=== PATIENT | male | born 1940 | race Caucasian/White ===

== ENCOUNTER 2018-11-09 14:18 | Inpatient (IN) | payer MEDICARE, BC ==
[2018-11-09] MEDS ORDERED: Sodium Chloride 0.9% 1,000 ML IV SCH (15:00)
[2018-11-09] MEDS ORDERED: cefTRIAXone 1 GM Vial IVPUSH ONE (15:54)
--- NOTE | 2018-11-09 15:54 | EDM.PDOC ---
ED HPI GENERAL MEDICAL PROBLEM - General Chief Complaint: Respiratory Problem Stated Complaint: KIDNEYS Time Seen by Provider: 11/09/18 14:20 Source of Information: Reports: Patient History Limitations: Reports: No Limitations - History of Present Illness INITIAL COMMENTS - FREE TEXT/NARRATIVE: Patient comes into the emergency department with complaints of body aches headache and decreased urine output. He states that the patient was in the clinic 2 days ago with similar symptoms and they gave him an antibiotic- but unknown type or dosing. Family denies the clinic providing labs, x-ray, or influenza swab. He states that they were given an antibiotic and he is very frustrated with the clinic because he voiced his concern regarding the patient' s decrease in urinary output and the above symptoms and he does not feel he was taken seriously. Since Monday he has continued to decompensate his urine output is next to 0 in the course last 24 hours. His fevers have been greater than 101 at home. Family is also concerned that he has increase of shortness of breath with exertion. The body aches and headaches still progressed he feels that those may have gotten a little better since Monday. Currently the patient denies of any vision changes, chest pain, pedal edema, nausea or vomiting, or gastrointestinal concerns. He is up-to-date on his flu vaccine this year. Onset: Gradual Quality: Reports: Other Improves with: Reports: None Worsens with: Reports: None Associated Symptoms: Reports: Fever/Chills, Headaches, Loss of Appetite, Malaise , Weakness - Related Data Allergies Allergy/AdvReac Type Severity Reaction Status Date / Time No Known Allergies Allergy Verified 03/22/16 19:13 Home Meds: Home Meds Simvastatin 10 mg DAILY 03/22/16 [History] Social & Family History - Caffeine Use Caffeine Use: Reports: None ED ROS GENERAL - Review of Systems Review Of Systems: See Below Constitutional: Reports: Fever, Chills, Malaise, Weakness HEENT: Reports: No Symptoms Respiratory: Reports: Shortness of Breath, Cough Cardiovascular: Reports: Dyspnea on Exertion Endocrine: Reports: No Symptoms GI/Abdominal: Reports: No Symptoms : Reports: No Symptoms Musculoskeletal: Reports: No Symptoms Skin: Reports: No Symptoms Neurological: Reports: No Symptoms Psychiatric: Reports: No Symptoms Hematologic/Lymphatic: Reports: No Symptoms ED EXAM, GENERAL - Physical Exam Exam: See Below Exam Limited By: No Limitations General Appearance: Alert, WD/WN, No Apparent Distress Head: Atraumatic, Normocephalic Neck: Normal Inspection, Supple, Non-Tender, Full Range of Motion Respiratory/Chest: Decreased Breath Sounds (left), Crackles (right side) Cardiovascular: Normal Peripheral Pulses, No Edema GI/Abdominal: Normal Bowel Sounds, Soft, Non-Tender, No Distention Back Exam: Normal Inspection Extremities: Normal Inspection, Normal Range of Motion Neurological: Alert, Oriented Psychiatric: Normal Affect, Normal Mood Skin Exam: Warm, Dry, Intact Course - Orders/Labs/Meds Orders: Active Orders 24 hr Category Date Time Status EKG Documentation Completion [RC] STAT Care 11/09/18 14:52 Active CULTURE BLOOD [BC] Stat Lab 11/09/18 15:55 Received CULTURE BLOOD [BC] Stat Lab 11/09/18 16:02 Received UA RFX RIGOBERTO AND CULT IF INDIC [URIN] Stat Lab 11/09/18 16:24 Ordered Sodium Chloride 0.9% [Normal Saline] 1,000 ml Med 11/09/18 15:00 Active IV ASDIRECTED Sodium Chloride 0.9% [Saline Flush] Med 11/09/18 14:52 Active 10 ml FLUSH ASDIRECTED PRN Blood Culture x2 Reflex Set [OM.PC] Stat Oth 11/09/18 14:52 Ordered Peripheral IV Insertion Adult [OM.PC] Stat Oth 11/09/18 14:51 Ordered Medication Orders Sodium Chloride (Normal Saline) 1,000 mls @ 200 mls/hr IV ASDIRECTED MELODIE Last Admin: 11/09/18 15:10 Dose: 200 mls/hr Sodium Chloride (Saline Flush) 10 ml FLUSH ASDIRECTED PRN PRN Reason: Keep Vein Open Labs: Laboratory Tests 11/09/18 11/09/18 11/09/18 Range/Units 15:55 15:55 15:55 WBC 10.0 (4.0-10.0) x10^3/uL RBC 3.84 L (4.5-6.0) x10^6/uL Hgb 11.3 L D (14.0-18.0) g/dL Hct 33.5 L (40.0-52.0) % MCV 87.2 (78.0-93.0) fL MCH 29.4 (26.0-32.0) pg MCHC 33.7 (32.0-36.0) g/dL RDW Coeff of Barbara 14.7 (10.0-15.0) % Plt Count 197 (130-400) x10^3/uL Neut % (Auto) 90.9 H (50.0-80.0) % Lymph % (Auto) 3.0 L (25.0-50.0) % Kleberg % (Auto) 5.8 (2.0-11.0) % Eos % (Auto) 0.2 (0.0-4.0) % Baso % (Auto) 0.1 L (0.2-1.2) % PT 14.3 H (10.0-12.8) SEC INR 1.3 L (2.0-3.5) Sodium 133 L (136-145) mmol/L Potassium 3.8 (3.5-5.1) mmol/L Chloride 97 L (98-107) mmol/L Carbon Dioxide 25 (21-32) mmol/L Anion Gap 14.8 (10-20) mmol/L BUN 21 H (7-18) mg/dL Creatinine 1.4 H (0.70-1.30) mg/dL Est Cr Clr Drug Dosing TNP Estimated GFR (MDRD) 49 Glucose 122 H (74-106) mg/dL Lactic Acid (0.4-2.0) mmol/L Calcium 8.2 L (8.5-10.1) mg/dL Corrected Calcium 9.24 (8.5-10.1) mg/dL Total Bilirubin 2.0 H (0.2-1.0) mg/dL AST 56 H (15-37) U/L ALT 99 H (16-63) U/L Alkaline Phosphatase 127 H (46-116) U/L Troponin I 0.060 H* (<=0.056) ng/mL NT-Pro-B Natriuret Pep 51641 H (<=450) pg/mL Total Protein 6.8 (6.4-8.2) g/dL Albumin 2.7 L (3.4-5.0) g/dL Globulin 4.1 Albumin/Globulin Ratio 0.66 05/03/19 Range/Units 15:55 WBC (4.0-10.0) x10^3/uL RBC (4.5-6.0) x10^6/uL Hgb (14.0-18.0) g/dL Hct (40.0-52.0) % MCV (78.0-93.0) fL MCH (26.0-32.0) pg MCHC (32.0-36.0) g/dL RDW Coeff of Barbara (10.0-15.0) % Plt Count (130-400) x10^3/uL Neut % (Auto) (50.0-80.0) % Lymph % (Auto) (25.0-50.0) % Kleberg % (Auto) (2.0-11.0) % Eos % (Auto) (0.0-4.0) % Baso % (Auto) (0.2-1.2) % PT (10.0-12.8) SEC INR (2.0-3.5) Sodium (136-145) mmol/L Potassium (3.5-5.1) mmol/L Chloride (98-107) mmol/L Carbon Dioxide (21-32) mmol/L Anion Gap (10-20) mmol/L BUN (7-18) mg/dL Creatinine (0.70-1.30) mg/dL Est Cr Clr Drug Dosing Estimated GFR (MDRD) Glucose (74-106) mg/dL Lactic Acid 1.5 (0.4-2.0) mmol/L Calcium (8.5-10.1) mg/dL Corrected Calcium (8.5-10.1) mg/dL Total Bilirubin (0.2-1.0) mg/dL AST (15-37) U/L ALT (16-63) U/L Alkaline Phosphatase (46-116) U/L Troponin I (<=0.056) ng/mL NT-Pro-B Natriuret Pep (<=450) pg/mL Total Protein (6.4-8.2) g/dL Albumin (3.4-5.0) g/dL Globulin Albumin/Globulin Ratio Meds: Medications Generic Name Dose Route Start Last Admin Trade Name Freq PRN Reason Stop Dose Admin Sodium Chloride 1,000 mls @ 200 mls/hr 11/09/18 15:00 11/09/18 15:10 Normal Saline IV 200 mls/hr ASDIRECTED MELODIE Administration Sodium Chloride 10 ml 11/09/18 14:52 Saline Flush FLUSH ASDIRECTED PRN Keep Vein Open Discontinued Medications Generic Name Dose Route Start Last Admin Trade Name Chad PRN Reason Stop Dose Admin Ceftriaxone Sodium 1 gm 11/09/18 15:54 11/09/18 16:05 Rocephin IVPUSH 11/09/18 15:55 1 gm ONETIME ONE Administration Departure - Departure Time of Disposition: 17:00 Disposition: Admitted As Inpatient 64 Condition: Fair Clinical Impression: Dehydration Pneumonia Qualifiers: Pneumonia type: due to unspecified organism Laterality: left Lung location: lower lobe of lung Qualified Code(s): J18.1 - Lobar pneumonia, unspecified organism CHF (congestive heart failure) Qualifiers: Heart failure type: combined systolic and diastolic Heart failure chronicity: acute on chronic Qualified Code(s): I50.43 - Acute on chronic combined systolic (congestive) and diastolic (congestive) heart failure - Discharge Information *PRESCRIPTION DRUG MONITORING PROGRAM REVIEWED*: Not Applicable *COPY OF PRESCRIPTION DRUG MONITORING REPORT IN PATIENT JANA: Not Applicable Referrals: Ana Bear MD [Primary Care Provider] - - Problem List Review Problem List Initiated/Reviewed/Updated: Yes - My Orders Last 24 Hours: My Active Orders 11/09/18 14:51 Peripheral IV Insertion Adult [OM.PC] Stat 11/09/18 14:52 EKG Documentation Completion [RC] STAT Sodium Chloride 0.9% [Saline Flush] 10 ml FLUSH ASDIRECTED PRN Blood Culture x2 Reflex Set [OM.PC] Stat 11/09/18 15:00 Sodium Chloride 0.9% [Normal Saline] 1,000 ml IV ASDIRECTED 11/09/18 15:55 CULTURE BLOOD [BC] Stat 11/09/18 16:02 CULTURE BLOOD [BC] Stat 11/09/18 16:24 UA RFX RIGOBERTO AND CULT IF INDIC [URIN] Stat - Assessment/Plan Last 24 Hours: My Active Orders 11/09/18 14:51 Peripheral IV Insertion Adult [OM.PC] Stat 11/09/18 14:52 EKG Documentation Completion [RC] STAT Sodium Chloride 0.9% [Saline Flush] 10 ml FLUSH ASDIRECTED PRN Blood Culture x2 Reflex Set [OM.PC] Stat 11/09/18 15:00 Sodium Chloride 0.9% [Normal Saline] 1,000 ml IV ASDIRECTED 11/09/18 15:55 CULTURE BLOOD [BC] Stat 11/09/18 16:02 CULTURE BLOOD [BC] Stat 11/09/18 16:24 UA RFX RIGOBERTO AND CULT IF INDIC [URIN] Stat Assessment:: 1. decrease urine output 2. Body aches and chills 3. Fever- on oral antibiotics in the clinic since Monday 4. Pneumonia 5. CHF exacerbation Plan: 1. Labs completed in the ER. Results reviewed with the patient and family 2. IV access initiated 3. CT scan of abdomen. Results reviewed with the patient and family 4. Xray of chest completed. Results reviewed with the patient and family 5. Rocephin given in ER. Pt was on oral antibiotics since Monday. 6. Fluids given in the ER due to decrease urine output and poor oral intake the past few days 7. EKG completed in ER. Results reviewed with the patient and family 8. Dr. Borjas contacted regarding admission. She is agreeable to the admission and will admit to acute care. 9. All questions and concerns were addressed prior to discharge
--- NOTE | 2018-11-09 16:07 | CT ---
[id number] CT/CT Abdomen Pelvis WO IV EXAM: CT Abdomen Pelvis WO IV CLINICAL DATA: FLANK PAIN,DECREASE URINE OUTPUT. COMPARISON STUDY: None. FINDINGS: Trace right and small left pleural effusions. Airspace consolidation at the left lung base. Subtle groundglass and tree-in-bud nodularity at the right lung base. The heart is enlarged. Multiple hypodense lesions scattered throughout the liver are nonspecific but likely represent cysts. The spleen is borderline enlarged measuring up to 13 cm. Cholelithiasis without evidence of acute cholecystitis. The pancreas and adrenal glands are unremarkable. Mild left hydronephrosis. No hydroureter. No stones are identified. The right kidney is unremarkable. No bowel obstruction or inflammation. The appendix is visualized and appears normal. Atherosclerotic calcifications of the aorta and its branches. No lymphadenopathy, or pneumoperitoneum. Small amount free fluid within the pelvis. Evaluation of the pelvis is limited secondary to streak artifact from right hip arthroplasty. Small left inguinal hernia containing fat and unobstructed colon. Scattered changes of spondylosis the spine. No fracture or osseous lesion. IMPRESSION: 1. Airspace consolidation within the left lower lobe consistent with pneumonia. Follow-up imaging after appropriate therapy is recommended 2. Trace right and small left pleural effusions. 3. Small amount of free fluid within the pelvis. 4. Mild left hydronephrosis. There are no obstructing stones identified. No hydroureter. Kwabena Rodas DO 11/09/18 1764 Thank you for allowing us to participate in the care of your patient.
[2018-11-09 16:44] LABS: CHLORIDE,CL 97 mmol/L (98-107); SODIUM,NA 133 mmol/L (136-145)
[2018-11-09 16:45] LABS: ANION GAP 14.8 mmol/L (10-20)
--- NOTE | 2018-11-09 16:48 | CR ---
[id number] RAD/RAD Chest PA or AP 1V EXAM: RAD Chest PA or AP 1V INDICATION: SHORT OF BREATH. COMPARISON: CT abdomen pelvis 11/09/2018. DISCUSSION: Cardiomediastinal silhouette is increased in size. Left lower lobe airspace consolidation. No pneumothorax. IMPRESSION: Left lower lobe pneumonia. Follow-up imaging after appropriate therapy in 4-6 weeks is recommended. Kwabena Rodas DO 11/09/18 1647 Thank you for allowing us to participate in the care of your patient.
--- NOTE | 2018-11-09 19:14 | PCM.HP ---
H&P History of Present Illness - General Date of Service: 11/09/18 Admit Problem/Dx: Admission Diagnosis/Problem Admission Diagnosis/Problem CHF, Congestive heart failure Source of Information: Patient, Family () History Limitations: Reports: No Limitations - History of Present Illness Initial Comments - Free Text/Narative: Mr. Leyva is an 78 yo male with PMH of pulmonary hypertension, mitral regurgitation, diastolic heart failure, FELIPE on CPAP, hyperlipidemia, obesity, CKD, and DJD who presented to the ER for evaluation of a progressively worsening cough x 5 days. Cough has been nonproductive. He has had nasal congestion, rhinorrhea, myalgias, fever, chills, and generalized weakness. His appetite has not been great but he has been trying to push fluids. He has not been voiding as often as usual despite his good fluid intake. He has not had any falls and his denies that he has been confused during this week. He was seen in clinic 2 days ago and was prescribed augmentin. His symptoms have continued to worsen since then. He denies any history of pneumonia. He has not had any specific sick contacts. Lower Back Pain Score (Numeric/FACES): 2 - Related Data Allergies/Adverse Reactions: Allergies Allergy/AdvReac Type Severity Reaction Status Date / Time No Known Allergies Allergy Verified 11/09/18 18:33 Home Medications: Home Meds Simvastatin 10 mg PO DAILY 03/22/16 [History] Amoxicillin/Clavulanate K [Augmentin 875-125 MG] 1 tab PO BID 11/09/18 [History] Aspirin [Halfprin] 81 mg PO ASDIRECTED 11/09/18 [History] Calcium Citrate/Vitamin D3 [Calcium Citrate - Vit D Tablet] 1 each PO DAILY 09/25 [History] Furosemide [Lasix] 40 mg PO DAILY 11/09/18 [History] Ibuprofen 200 mg PO Q6HR PRN 11/09/18 [History] Metoprolol Succinate 25 mg PO DAILY 11/09/18 [History] Multivitamin [Multi-Day Vitamins] 1 tab PO DAILY 11/09/18 [History] Potassium Chloride 20 meq PO DAILY 11/09/18 [History] Past Medical History HEENT History: Reports: Hard of Hearing Cardiovascular History: Reports: Heart Failure, High Cholesterol, Pulmonary Hypertension, Other (See Below) Other Cardiovascular History: Cardiomegaly. Mitral valve regurgitation. Abnormal EKG. Hx of chest pain. Bradycardia Respiratory History: Reports: Sleep Apnea, SOB, Other (See Below) Other Respiratory History: Right lung lesion Gastrointestinal History: Reports: Cholelithiasis, Colon Polyp, Other (See Below ) Other Gastrointestinal History: Biliary sludge. Peptic Ulcer Genitourinary History: Reports: Acute Renal Failure, Other (See Below) Other Genitourinary History: CKD Musculoskeletal History: Reports: Osteoarthritis, Other (See Below) Other Musculoskeletal History: Carpal tunnel Neurological History: Reports: Headaches, Chronic, Vertigo Psychiatric History: Reports: None Endocrine/Metabolic History: Reports: Obesity/BMI 30+, Other (See Below) Other Endocrine/Metabolic History: Hyperglycemia Hematologic History: Reports: None Immunologic History: Reports: None Oncologic (Cancer) History: Reports: None Dermatologic History: Reports: Other (See Below) Other Dermatologic History: Pigmented skin lesion. Lipoma - Infectious Disease History Infectious Disease History: Reports: Meningitis - Past Surgical History HEENT Surgical History: Reports: None Cardiovascular Surgical History: Reports: None Respiratory Surgical History: Reports: None GI Surgical History: Reports: Colonoscopy Male Surgical History: Reports: None Endocrine Surgical History: Reports: None Neurological Surgical History: Reports: None Musculoskeletal Surgical History: Reports: Carpal Tunnel, Hip Replacement, Knee Replacement Oncologic Surgical History: Reports: None Dermatological Surgical History: Reports: None Social & Family History - Family History Cardiac: Reports: Heart Failure Neurological: Reports: CVA Endocrine/Metabolic: Reports: Diabetes, type II Oncologic: Reports: Colon - Tobacco Use Smoking Status *Q: Never Smoker Used Tobacco, but Quit: No Second Hand Smoke Exposure: No - Caffeine Use Caffeine Use: Reports: Coffee - Alcohol Use Alcohol Use History: No Alcohol Use in Last Twelve Months: Yes Alcohol Use Frequency: Rarely - Recreational Drug Use Recreational Drug Use: No - Living Situation & Occupation Living situation: Reports: , with Significant Other Occupation: Retired H&P Review of Systems - Review of Systems: Review Of Systems: See Below General: Reports: Fever, Chills, Weakness, Fatigue, Decreased Appetite HEENT: Reports: Rhinitis, Sinus Congestion. Denies: Sore Throat Pulmonary: Reports: Shortness of Breath, Cough Cardiovascular: Reports: No Symptoms Gastrointestinal: Reports: Anorexia, Nausea. Denies: Abdominal Pain, Constipation, Diarrhea, Vomiting Genitourinary: Reports: No Symptoms Musculoskeletal: Reports: No Symptoms Skin: Reports: No Symptoms Psychiatric: Reports: No Symptoms Neurological: Reports: No Symptoms Exam - Exam Exam: See Below - Vital Signs Vital Signs: Last Vital Signs Temp 38.6 C H 11/09/18 18:00 Pulse 82 11/09/18 18:00 Resp 32 H 11/09/18 18:00 BP 125/78 11/09/18 18:00 Pulse Ox 93 L 11/09/18 18:56 Weight: 102.512 kg - Exam General: Alert, Oriented, Cooperative HEENT: Conjunctiva Clear, Mucosa Moist & [place], Posterior Pharynx Clear, Pupils Equal, Pupils Reactive, TMs Clear Neck: Supple, Trachea Midline. No: Lymphadenopathy, Thyromegaly Lungs: Normal Respiratory Effort, Crackles (left lower lung) Cardiovascular: Regular Rate, Regular Rhythm, Normal S1, Normal S2 GI/Abdominal Exam: Normal Bowel Sounds, Soft, Non-Tender, No Organomegaly, No Distention, No Mass Extremities: Pedal Edema (1+ bilaterally to the knees) Peripheral Pulses: 2+: Radial (L), Radial (R) Skin: Warm, Dry, Intact Neurological: Strength Equal Bilateral Neuro Extensive - Mental Status: Alert, Oriented x3 - Patient Data Lab Results Last 24 hrs: Laboratory Results - last 24 hr 11/09/18 11/09/18 11/09/18 Range/Units 15:55 15:55 15:55 WBC 10.0 (4.0-10.0) x10^3/uL RBC 3.84 L (4.5-6.0) x10^6/uL Hgb 11.3 L D (14.0-18.0) g/dL Hct 33.5 L (40.0-52.0) % MCV 87.2 (78.0-93.0) fL MCH 29.4 (26.0-32.0) pg MCHC 33.7 (32.0-36.0) g/dL RDW Coeff of Barbara 14.7 (10.0-15.0) % Plt Count 197 (130-400) x10^3/uL Neut % (Auto) 90.9 H (50.0-80.0) % Lymph % (Auto) 3.0 L (25.0-50.0) % [place] % (Auto) 5.8 (2.0-11.0) % Eos % (Auto) 0.2 (0.0-4.0) % Baso % (Auto) 0.1 L (0.2-1.2) % PT 14.3 H (10.0-12.8) SEC INR 1.3 L (2.0-3.5) Sodium 133 L (136-145) mmol/L Potassium 3.8 (3.5-5.1) mmol/L Chloride 97 L (98-107) mmol/L Carbon Dioxide 25 (21-32) mmol/L Anion Gap 14.8 (10-20) mmol/L BUN 21 H (7-18) mg/dL Creatinine 1.4 H (0.70-1.30) mg/dL Est Cr Clr Drug Dosing TNP Estimated GFR (MDRD) 49 Glucose 122 H (74-106) mg/dL Lactic Acid (0.4-2.0) mmol/L Calcium 8.2 L (8.5-10.1) mg/dL Corrected Calcium 9.24 (8.5-10.1) mg/dL Total Bilirubin 2.0 H (0.2-1.0) mg/dL AST 56 H (15-37) U/L ALT 99 H (16-63) U/L Alkaline Phosphatase 127 H (46-116) U/L Troponin I 0.060 H* (<=0.056) ng/mL NT-Pro-B Natriuret Pep 13365 H (<=450) pg/mL Total Protein 6.8 (6.4-8.2) g/dL Albumin 2.7 L (3.4-5.0) g/dL Globulin 4.1 Albumin/Globulin Ratio 0.66 /09/25 Range/Units 15:55 WBC (4.0-10.0) x10^3/uL RBC (4.5-6.0) x10^6/uL Hgb (14.0-18.0) g/dL Hct (40.0-52.0) % MCV (78.0-93.0) fL MCH (26.0-32.0) pg MCHC (32.0-36.0) g/dL RDW Coeff of [place] (10.0-15.0) % Plt Count (130-400) x10^3/uL Neut % (Auto) (50.0-80.0) % Lymph % (Auto) (25.0-50.0) % [place] % (Auto) (2.0-11.0) % Eos % (Auto) (0.0-4.0) % Baso % (Auto) (0.2-1.2) % PT (10.0-12.8) SEC INR (2.0-3.5) Sodium (136-145) mmol/L Potassium (3.5-5.1) mmol/L Chloride (98-107) mmol/L Carbon Dioxide (21-32) mmol/L Anion Gap (10-20) mmol/L BUN (7-18) mg/dL Creatinine (0.70-1.30) mg/dL Est Cr Clr Drug Dosing Estimated GFR (MDRD) Glucose (74-106) mg/dL Lactic Acid 1.5 (0.4-2.0) mmol/L Calcium (8.5-10.1) mg/dL Corrected Calcium (8.5-10.1) mg/dL Total Bilirubin (0.2-1.0) mg/dL AST (15-37) U/L ALT (16-63) U/L Alkaline Phosphatase (46-116) U/L Troponin I (<=0.056) ng/mL NT-Pro-B Natriuret Pep (<=450) pg/mL Total Protein (6.4-8.2) g/dL Albumin (3.4-5.0) g/dL Globulin Albumin/Globulin Ratio Result Diagrams: 11/09/18 15:55 11/09/18 15:55 Mina Results Last 24 hrs: Microbiology 11/09/18 15:18 Influenza Type A Antigen Screen - Final Nasal Aspirate, Unspecified NEGATIVE INFLUENZA A VIRUS AG REFERENCE RANGE: NEGATIVE Influenza Type B Antigen Screen - Final NEGATIVE INFLUENZA B VIRUS AG REFERENCE RANGE: NEGATIVE - Problem List (1) Sepsis SNOMED Code(s): 65470252 ICD Code: A41.9 - SEPSIS, UNSPECIFIED ORGANISM Status: Acute Current Visit: Yes Qualifiers: Sepsis type: sepsis due to unspecified organism Qualified Code(s): A41.9 - Sepsis, unspecified organism (2) Community acquired pneumonia SNOMED Code(s): 878425449 ICD Code: J18.9 - PNEUMONIA, UNSPECIFIED ORGANISM Status: Acute Current Visit: Yes Qualifiers: Laterality: left Lung location: lower lobe of lung Qualified Code(s): J18.1 - Lobar pneumonia, unspecified organism (3) CHF (congestive heart failure) SNOMED Code(s): 70311113 ICD Code: I50.9 - HEART FAILURE, UNSPECIFIED Status: Acute Current Visit : Yes Qualifiers: Heart failure type: combined systolic and diastolic Heart failure chronicity: acute on chronic Qualified Code(s): I50.43 - Acute on chronic combined systolic (congestive) and diastolic (congestive) heart failure (4) CKD (chronic kidney disease) SNOMED Code(s): 844001967 ICD Code: N18.9 - CHRONIC KIDNEY DISEASE, UNSPECIFIED Status: Chronic Current Visit: Yes Qualifiers: Chronic kidney disease stage: stage 3 (moderate) Qualified Code(s): N18.3 - Chronic kidney disease, stage 3 (moderate) (5) Pulmonary hypertension SNOMED Code(s): 05767981 ICD Code: I27.20 - PULMONARY HYPERTENSION, UNSPECIFIED Status: Chronic Current Visit: Yes (6) Mitral regurgitation SNOMED Code(s): 01358017 ICD Code: I34.0 - NONRHEUMATIC MITRAL (VALVE) INSUFFICIENCY Status: Chronic Current Visit: Yes Qualifiers: Cardiac valve disease etiology: nonrheumatic Qualified Code(s): I34.0 - Nonrheumatic mitral (valve) insufficiency (7) Hyperlipemia SNOMED Code(s): 25485739 ICD Code: E78.5 - HYPERLIPIDEMIA, UNSPECIFIED Status: Chronic Current Visit: Yes Qualifiers: Hyperlipidemia type: mixed hyperlipidemia Qualified Code(s): E78.2 - Mixed hyperlipidemia (8) Obesity SNOMED Code(s): 920239427, 401991858 ICD Code: E66.9 - OBESITY, UNSPECIFIED Status: Chronic Current Visit: Yes Qualifiers: Obesity type: due to excess calories (9) Arthritis SNOMED Code(s): 3578770 ICD Code: M19.90 - UNSPECIFIED OSTEOARTHRITIS, UNSPECIFIED SITE Status: Chronic Current Visit: Yes (10) FELIPE (obstructive sleep apnea) SNOMED Code(s): 34473323 ICD Code: G47.33 - OBSTRUCTIVE SLEEP APNEA (ADULT) (PEDIATRIC) Status: Chronic Current Visit: Yes Problem List Initiated/Reviewed/Updated: Yes Orders Last 24hrs: Active Orders 24 hr Category Date Time Status Admission Status [Patient Status] [ADT] Routine ADT 11/09/18 17:12 Active Notify Provider Vital Signs [RC] ASDIRECTED Care 11/09/18 18:56 Ordered Oxygen Therapy [RC] PRN Care 11/09/18 18:56 Ordered Up With Assistance [RC] ASDIRECTED Care 11/09/18 18:56 Ordered Vital Signs [RC] Q4H Care 11/09/18 18:56 Ordered Regular Diet [DIET] Diet 11/09/18 Dinner Ordered BASIC METABOLIC PANEL,BMP [CHEM] Routine Lab 11/10/18 05:11 Ordered CBC WITH AUTO DIFF [HEME] Routine Lab 11/10/18 05:11 Ordered CULTURE BLOOD [BC] Stat Lab 11/09/18 15:55 Received CULTURE BLOOD [BC] Stat Lab 11/09/18 16:02 Received UA RFX MINA AND CULT IF INDIC [URIN] Stat Lab 11/09/18 16:24 Ordered Aspirin [Halfprin] Med 11/10/18 20:00 Ordered 81 mg PO Q48H Enoxaparin [Lovenox] Med 11/10/18 08:00 Ordered 40 mg SUBCUT DAILY Metoprolol Succinate [Toprol XL] Med 11/09/18 20:00 Ordered 25 mg PO BEDTIME Potassium Chloride [Potassium Chloride] Med 11/10/18 08:00 Ordered 20 meq PO DAILY Simvastatin [Zocor] Med 11/09/18 20:00 Ordered 10 mg PO BEDTIME Sodium Chloride 0.9% [Saline Flush] Med 11/09/18 14:52 Active 10 ml FLUSH ASDIRECTED PRN Blood Culture x2 Reflex Set [OM.PC] Stat Oth 11/09/18 14:52 Ordered Peripheral IV Insertion Adult [OM.PC] Stat Oth 11/09/18 14:51 Ordered Resuscitation Status Routine Resus Stat 11/09/18 18:56 Ordered Medication Orders Aspirin (Halfprin) 81 mg PO Q48H MELODIE Enoxaparin Sodium (Lovenox) 40 mg SUBCUT DAILY MELODIE Metoprolol Succinate (Toprol Xl) 25 mg PO BEDTIME MELODIE Non-Formulary Medication (Potassium Chloride [Potassium Chloride]) 20 meq PO DAILY MELODIE Simvastatin (Zocor) 10 mg PO BEDTIME MELODIE Sodium Chloride (Saline Flush) 10 ml FLUSH ASDIRECTED PRN PRN Reason: Keep Vein Open Assessment/Plan Comment:: 78 yo male admitted with sepsis secondary to community acquired pneumonia. #1 Sepsis, secondary to #2 - Meets criteria with tachypnea and fever. - He has had some GI symptoms as well but CT abdomen/pelvis negative. No other signs/symptoms of alternative infectious source. - Lactic normal. No other evidence of end organ damage. - He got IV fluids in the ER. Given absence of tachycardia and significant BP elevation, will hold off on further IV fluids for now. Will bolus PRN. #2 Community Acquired Pneumonia - Left lower lobe pneumonia seen on x-ray and CT. He also has crackles in the LLL. - CURB-65 score is 2. Given this as well as his meeting of sepsis criteria, inpatient admission is recommended. - Per current guidelines, will treat with ceftriaxone and azithromycin. He already got initial dosing on the ceftriaxone in the ER; will start the azithromycin tomorrow. - Wean oxygen as able. - Follow-up CXR recommended in 4-6 weeks. #3 Acute on chronic diastolic CHF - BNP significantly elevated but no evidence on exam or x-ray of significant fluid overload. - Will hold off on additional lasix at this time. - Will see how he handles the fluid load given in the ER and assess for PO vs IV in the morning. - Continue home medications. #4 CKD - Creatinine is at his baseline. - Will monitor daily and avoid any renal injuries. #5 Pulmonary Hypertension #6 Mitral Regurgitation #7 Hyperlipidemia #8 Obesity #9 Arthritis - All stable. - Continue home medications. #10 FELIPE - His will bring his CPAP machine from home. As above, patient is admitted to acute status based on meeting sepsis criteria as well as a CURB-65 score of 2 - anticipate admission for 48-72 hours. Continue home medications apart from vitamins and ibuprofen. Lovenox for VTE prophylaxis. Patient is full code - discussed with him on admission.
[2018-11-09] MEDS: Simvastatin 10 MG Tab PO SCH (20:30)
[2018-11-09] MEDS: Metoprolol Succinate 25 MG Tab.ER PO SCH (20:30)
[2018-11-10] MEDS: Enoxaparin 40 MG/0.4 ML Syringe SUBCUT SCH (07:13)
[2018-11-10] MEDS: Potassium Chloride 20 MEQ Tab.ER PO SCH (07:13)
[2018-11-10] MEDS: Sodium Chloride 0.9% 10 ML Syringe FLUSH PRN ×3 (07:15→13:58)
[2018-11-10 08:46] LABS: ANION GAP 13.8 mmol/L (10-20)
[2018-11-10] MEDS ORDERED: Azithromycin 250 MG Tab PO ONE (09:18)
[2018-11-10] MEDS ORDERED: Furosemide 20 MG/2 ML VIAL IV ONE (09:28)
[2018-11-10] MEDS: Calcium Carbonate/Vitamin D3 1250 MG-200 Unit Tab PO SCH (10:43)
--- NOTE | 2018-11-10 10:44 | PCM.PN ---
- General Info Date of Service: 11/10/18 Subjective Update: 78 yo male hospital day #2 admitted with sepsis secondary to community acquired pneumonia after presenting to the ER 11/09 with worsening cough and shortness of breath. No acute overnight events. Slept ok. Cough persists and remains dry. He does not feel his shortness of breath is any better or worse than yesterday. He did have a fever last evening within 24 hours of getting antibiotics. His notes that his abdomen is more pronounced than usual and this is typical for him when he has some fluid overload. His legs remain swollen as well. He does not feel he is voiding any more than yesterday despite the fluids given in the ER last night. He does note that his stomach feels better and he was able to eat a full breakfast this morning without issues. - Review of Systems General: Reports: Fever, Weakness HEENT: Reports: Sinus Congestion, Rhinitis Pulmonary: Reports: Shortness of Breath, Cough Cardiovascular: Reports: No Symptoms Gastrointestinal: Reports: No Symptoms Genitourinary: Reports: No Symptoms Musculoskeletal: Reports: No Symptoms Skin: Reports: No Symptoms Neurological: Reports: No Symptoms Psychiatric: Reports: No Symptoms - Patient Data Vitals - Most Recent: Last Vital Signs Temp 37.4 C 11/10/18 10:00 Pulse 71 11/10/18 10:00 Resp 18 11/10/18 10:00 BP 147/70 H 11/10/18 10:00 Pulse Ox 95 11/10/18 10:00 Weight - Most Recent: 100.607 kg I&O - Last 24 Hours: Intake & Output 11/09/18 11/10/18 11/10/18 22:59 06:59 14:59 Output Total 400 Balance -400 Lab Results Last 24 Hours: Laboratory Results - last 24 hr 11/09/18 11/09/18 11/09/18 Range/Units 15:55 15:55 15:55 WBC 10.0 (4.0-10.0) x10^3/uL RBC 3.84 L (4.5-6.0) x10^6/uL Hgb 11.3 L D (14.0-18.0) g/dL Hct 33.5 L (40.0-52.0) % MCV 87.2 (78.0-93.0) fL MCH 29.4 (26.0-32.0) pg MCHC 33.7 (32.0-36.0) g/dL RDW Coeff of Barbara 14.7 (10.0-15.0) % Plt Count 197 (130-400) x10^3/uL Neut % (Auto) 90.9 H (50.0-80.0) % Lymph % (Auto) 3.0 L (25.0-50.0) % Ceiba % (Auto) 5.8 (2.0-11.0) % Eos % (Auto) 0.2 (0.0-4.0) % Baso % (Auto) 0.1 L (0.2-1.2) % Add Manual Diff Neutrophils % (Manual) (50-80) % Band Neutrophils % (0-6) % Lymphocytes % (Manual) (25-50) % Reactive Lymphs % (0) % Monocytes % (Manual) (2-11) % Metamyelocytes % (0) % Vacuolated Monocytes Toxic Granulation Platelet Estimate Giant Platelets Polychromasia Anisocytosis Ovalocytes [place] Cells Acanthocytes (Spur) PT 14.3 H (10.0-12.8) SEC INR 1.3 L (2.0-3.5) Sodium 133 L (136-145) mmol/L Potassium 3.8 (3.5-5.1) mmol/L Chloride 97 L (98-107) mmol/L Carbon Dioxide 25 (21-32) mmol/L Anion Gap 14.8 (10-20) mmol/L BUN 21 H (7-18) mg/dL Creatinine 1.4 H (0.70-1.30) mg/dL Est Cr Clr Drug Dosing TNP Estimated GFR (MDRD) 49 Glucose 122 H (74-106) mg/dL Lactic Acid (0.4-2.0) mmol/L Calcium 8.2 L (8.5-10.1) mg/dL Corrected Calcium 9.24 (8.5-10.1) mg/dL Total Bilirubin 2.0 H (0.2-1.0) mg/dL AST 56 H (15-37) U/L ALT 99 H (16-63) U/L Alkaline Phosphatase 127 H (46-116) U/L Troponin I 0.060 H* (<=0.056) ng/mL NT-Pro-B Natriuret Pep 14767 H (<=450) pg/mL Total Protein 6.8 (6.4-8.2) g/dL Albumin 2.7 L (3.4-5.0) g/dL Globulin 4.1 Albumin/Globulin Ratio 0.66 Urine Color (YELLOW) Urine Appearance (CLEAR) Urine pH (5.0-8.0) Ur Specific [place] Urine Protein (NEGATIVE) mg/dL Urine Glucose (UA) (NEGATIVE) mg/dL Urine Ketones (NEGATIVE) mg/dL Urine Occult Blood (NEGATIVE) Urine Nitrite (NEGATIVE) Urine Bilirubin (NEGATIVE) Urine Urobilinogen (0.2) EU/dL Ur Leukocyte Esterase (NEGATIVE) Urine RBC (NOT SEEN) /HPF Urine WBC (NOT SEEN) /HPF Ur Squamous Epith Cells (NEGATIVE) /HPF Urine Bacteria (NEGATIVE) /HPF Urine Mucus (NEGATIVE) /LPF 11/09/18 11/10/18 11/10/18 Range/Units 15:55 01:40 07:40 WBC 9.9 (4.0-10.0) x10^3/uL RBC 3.87 L (4.5-6.0) x10^6/uL Hgb 11.4 L (14.0-18.0) g/dL Hct 33.7 L (40.0-52.0) % MCV 87.1 (78.0-93.0) fL MCH 29.5 (26.0-32.0) pg MCHC 33.8 (32.0-36.0) g/dL RDW Coeff of Barbara 15.0 (10.0-15.0) % Plt Count 209 (130-400) x10^3/uL Neut % (Auto) (50.0-80.0) % Lymph % (Auto) (25.0-50.0) % [place] % (Auto) (2.0-11.0) % Eos % (Auto) (0.0-4.0) % Baso % (Auto) (0.2-1.2) % Add Manual Diff Yes Neutrophils % (Manual) 83 H (50-80) % Band Neutrophils % 7 H (0-6) % Lymphocytes % (Manual) 3 L (25-50) % Reactive Lymphs % 1 H (0) % Monocytes % (Manual) 5 (2-11) % Metamyelocytes % 1 H (0) % Vacuolated Monocytes 1+ slight H Toxic Granulation 1+ slight H Platelet Estimate Adequate Giant Platelets Rare H Polychromasia Rare Anisocytosis 1+ slight H Ovalocytes 1+ slight H Jd Cells 1+ slight H Acanthocytes (Spur) 1+ slight H PT (10.0-12.8) SEC INR (2.0-3.5) Sodium (136-145) mmol/L Potassium (3.5-5.1) mmol/L Chloride (98-107) mmol/L Carbon Dioxide (21-32) mmol/L Anion Gap (10-20) mmol/L BUN (7-18) mg/dL Creatinine (0.70-1.30) mg/dL Est Cr Clr Drug Dosing Estimated GFR (MDRD) Glucose (74-106) mg/dL Lactic Acid 1.5 (0.4-2.0) mmol/L Calcium (8.5-10.1) mg/dL Corrected Calcium (8.5-10.1) mg/dL Total Bilirubin (0.2-1.0) mg/dL AST (15-37) U/L ALT (16-63) U/L Alkaline Phosphatase (46-116) U/L Troponin I (<=0.056) ng/mL NT-Pro-B Natriuret Pep (<=450) pg/mL Total Protein (6.4-8.2) g/dL Albumin (3.4-5.0) g/dL Globulin Albumin/Globulin Ratio Urine Color Jeannette H (YELLOW) Urine Appearance Clear (CLEAR) Urine pH 6.0 (5.0-8.0) Ur Specific [place] 1.015 Urine Protein 100 H (NEGATIVE) mg/dL Urine Glucose (UA) Negative (NEGATIVE) mg/dL Urine Ketones 15 H (NEGATIVE) mg/dL Urine Occult Blood Trace-lysed H (NEGATIVE) Urine Nitrite Negative (NEGATIVE) Urine Bilirubin Small H (NEGATIVE) Urine Urobilinogen 2.0 H (0.2) EU/dL Ur Leukocyte Esterase Negative (NEGATIVE) Urine RBC 0-5 (NOT SEEN) /HPF Urine WBC 0-5 (NOT SEEN) /HPF Ur Squamous Epith Cells Rare (NEGATIVE) /HPF Urine Bacteria Not seen (NEGATIVE) /HPF Urine Mucus Not seen (NEGATIVE) /LPF 05/04/19 Range/Units 07:40 WBC (4.0-10.0) x10^3/uL RBC (4.5-6.0) x10^6/uL Hgb (14.0-18.0) g/dL Hct (40.0-52.0) % MCV (78.0-93.0) fL MCH (26.0-32.0) pg MCHC (32.0-36.0) g/dL RDW Coeff of Barbara (10.0-15.0) % Plt Count (130-400) x10^3/uL Neut % (Auto) (50.0-80.0) % Lymph % (Auto) (25.0-50.0) % [place] % (Auto) (2.0-11.0) % Eos % (Auto) (0.0-4.0) % Baso % (Auto) (0.2-1.2) % Add Manual Diff Neutrophils % (Manual) (50-80) % Band Neutrophils % (0-6) % Lymphocytes % (Manual) (25-50) % Reactive Lymphs % (0) % Monocytes % (Manual) (2-11) % Metamyelocytes % (0) % Vacuolated Monocytes Toxic Granulation Platelet Estimate Giant Platelets Polychromasia Anisocytosis Ovalocytes Jd Cells Acanthocytes (Spur) PT (10.0-12.8) SEC INR (2.0-3.5) Sodium 135 L (136-145) mmol/L Potassium 3.8 (3.5-5.1) mmol/L Chloride 101 (98-107) mmol/L Carbon Dioxide 24 (21-32) mmol/L Anion Gap 13.8 (10-20) mmol/L BUN 20 H (7-18) mg/dL Creatinine 1.3 (0.70-1.30) mg/dL Est Cr Clr Drug Dosing 46.79 Estimated GFR (MDRD) 53 Glucose 120 H (74-106) mg/dL Lactic Acid (0.4-2.0) mmol/L Calcium 8.0 L (8.5-10.1) mg/dL Corrected Calcium (8.5-10.1) mg/dL Total Bilirubin (0.2-1.0) mg/dL AST (15-37) U/L ALT (16-63) U/L Alkaline Phosphatase (46-116) U/L Troponin I (<=0.056) ng/mL NT-Pro-B Natriuret Pep (<=450) pg/mL Total Protein (6.4-8.2) g/dL Albumin (3.4-5.0) g/dL Globulin Albumin/Globulin Ratio Urine Color (YELLOW) Urine Appearance (CLEAR) Urine pH (5.0-8.0) Ur Specific [place] Urine Protein (NEGATIVE) mg/dL Urine Glucose (UA) (NEGATIVE) mg/dL Urine Ketones (NEGATIVE) mg/dL Urine Occult Blood (NEGATIVE) Urine Nitrite (NEGATIVE) Urine Bilirubin (NEGATIVE) Urine Urobilinogen (0.2) EU/dL Ur Leukocyte Esterase (NEGATIVE) Urine RBC (NOT SEEN) /HPF Urine WBC (NOT SEEN) /HPF Ur Squamous Epith Cells (NEGATIVE) /HPF Urine Bacteria (NEGATIVE) /HPF Urine Mucus (NEGATIVE) /LPF Mina Results Last 24 Hours: Microbiology 11/09/18 15:18 Influenza Type A Antigen Screen - Final Nasal Aspirate, Unspecified NEGATIVE INFLUENZA A VIRUS AG REFERENCE RANGE: NEGATIVE Influenza Type B Antigen Screen - Final NEGATIVE INFLUENZA B VIRUS AG REFERENCE RANGE: NEGATIVE Med Orders - Current: Current Medications Acetaminophen (Tylenol) 650 mg PO Q6H PRN PRN Reason: Pain/Fever Aspirin (Halfprin) 81 mg PO Q48H [facility] Calcium Carbonate (Calcium Carbonate/Vitamin D 1250 Mg-200 Unit) 1 tab PO DAILY [facility] Ceftriaxone Sodium (Rocephin) 1 gm IVPUSH DAILY@1500 [facility] Enoxaparin Sodium (Lovenox) 40 mg SUBCUT DAILY [facility] Last Admin: 11/10/18 07:13 Dose: 40 mg Metoprolol Succinate (Toprol Xl) 25 mg PO BEDTIME [facility] Last Admin: 11/09/18 20:30 Dose: 25 mg Potassium Chloride (Klor-Con M20) 20 meq PO DAILY [facility] Last Admin: 11/10/18 07:13 Dose: 20 meq Simvastatin (Zocor) 10 mg PO BEDTIME [facility] Last Admin: 11/09/18 20:30 Dose: 10 mg Sodium Chloride (Saline Flush) 10 ml FLUSH ASDIRECTED PRN PRN Reason: Keep Vein Open Last Admin: 11/10/18 09:52 Dose: 10 ml Discontinued Medications Azithromycin (Zithromax) 500 mg PO ONETIME ONE Stop: 11/10/18 09:19 Last Admin: 11/10/18 09:52 Dose: 500 mg Ceftriaxone Sodium (Rocephin) 1 gm IVPUSH ONETIME ONE Stop: 11/09/18 15:55 Last Admin: 11/09/18 16:05 Dose: 1 gm Furosemide (Lasix) 20 mg IV ONETIME ONE Stop: 11/10/18 09:29 Last Admin: 11/10/18 09:52 Dose: 20 mg Sodium Chloride (Normal Saline) 1,000 mls @ 200 mls/hr IV ASDIRECTED [facility] Last Admin: 11/09/18 15:10 Dose: 200 mls/hr - Exam General: Alert, Oriented, Cooperative, No Acute Distress HEENT: Pupils Equal, Pupils Reactive, Mucous Membr. Moist/[place]ck: Supple, Trachea Midline, No Thyromegaly. No: Lymphadenopathy Lungs: Normal Respiratory Effort, Crackles (left lower lung field) Cardiovascular: Regular Rate, Regular Rhythm, No Murmurs GI/Abdominal Exam: Normal Bowel Sounds, Soft, Non-Tender, No Organomegaly, No Distention, No Mass Extremities: Normal Inspection, Non-Tender, Normal Capillary Refill, Pedal Edema (1+ bilaterally) Peripheral Pulses: 2+: Radial (L), Radial (R) Skin: Warm, Dry, Intact Neurological: No New Focal Deficit - Problem List & Annotations (1) Sepsis SNOMED Code(s): 17317765 Code(s): A41.9 - SEPSIS, UNSPECIFIED ORGANISM Status: Acute Current Visit : Yes Qualifiers: Sepsis type: sepsis due to unspecified organism Qualified Code(s): A41.9 - Sepsis, unspecified organism (2) Community acquired pneumonia SNOMED Code(s): 869733644 Code(s): J18.9 - PNEUMONIA, UNSPECIFIED ORGANISM Status: Acute Current Visit: Yes Qualifiers: Laterality: left Lung location: lower lobe of lung Qualified Code(s): J18.1 - Lobar pneumonia, unspecified organism (3) CHF (congestive heart failure) SNOMED Code(s): 66140230 Code(s): I50.9 - HEART FAILURE, UNSPECIFIED Status: Acute Current Visit: Yes Qualifiers: Heart failure type: combined systolic and diastolic Heart failure chronicity: acute on chronic Qualified Code(s): I50.43 - Acute on chronic combined systolic (congestive) and diastolic (congestive) heart failure (4) CKD (chronic kidney disease) SNOMED Code(s): 758113663 Code(s): N18.9 - CHRONIC KIDNEY DISEASE, UNSPECIFIED Status: Chronic Current Visit: Yes Qualifiers: Chronic kidney disease stage: stage 3 (moderate) Qualified Code(s): N18.3 - Chronic kidney disease, stage 3 (moderate) (5) Pulmonary hypertension SNOMED Code(s): 71592166 Code(s): I27.20 - PULMONARY HYPERTENSION, UNSPECIFIED Status: Chronic Current Visit: Yes (6) Mitral regurgitation SNOMED Code(s): 84769226 Code(s): I34.0 - NONRHEUMATIC MITRAL (VALVE) INSUFFICIENCY Status: Chronic Current Visit: Yes Qualifiers: Cardiac valve disease etiology: nonrheumatic Qualified Code(s): I34.0 - Nonrheumatic mitral (valve) insufficiency (7) Hyperlipemia SNOMED Code(s): 96151702 Code(s): E78.5 - HYPERLIPIDEMIA, UNSPECIFIED Status: Chronic Current Visit: Yes Qualifiers: Hyperlipidemia type: mixed hyperlipidemia Qualified Code(s): E78.2 - Mixed hyperlipidemia (8) Obesity SNOMED Code(s): 836840370, 394197872 Code(s): E66.9 - OBESITY, UNSPECIFIED Status: Chronic Current Visit: Yes Qualifiers: Obesity type: due to excess calories (9) Arthritis SNOMED Code(s): 8844629 Code(s): M19.90 - UNSPECIFIED OSTEOARTHRITIS, UNSPECIFIED SITE Status: Chronic Current Visit: Yes (10) FELIPE (obstructive sleep apnea) SNOMED Code(s): 01022240 Code(s): G47.33 - OBSTRUCTIVE SLEEP APNEA (ADULT) (PEDIATRIC) Status: Chronic Current Visit: Yes - Problem List Review Problem List Initiated/Reviewed/Updated: Yes - My Orders Last 24 Hours: My Active Orders 11/09/18 18:56 Notify Provider Vital Signs [RC] 06,10,14,18,22,02 Oxygen Therapy [RC] 08,20 Up With Assistance [RC] .PRN Vital Signs [RC] 06,10,14,18,22,02 Resuscitation Status Routine 11/09/18 20:00 Metoprolol Succinate [Toprol XL] 25 mg PO BEDTIME Simvastatin [Zocor] 10 mg PO BEDTIME 11/09/18 Dinner Regular Diet [DIET] 11/10/18 05:12 Acetaminophen [Tylenol] 650 mg PO Q6H PRN 11/10/18 08:00 Enoxaparin [Lovenox] 40 mg SUBCUT DAILY Potassium Chloride [Klor-Con M20] 20 meq PO DAILY 11/10/18 09:19 Dietary Supplements [RC] 10,17 11/10/18 10:15 Calcium Carbonate/Vitamin D3 [Calcium Carbonate/Vitamin D 1250 MG-200 Unit] 1 tab PO DAILY 11/10/18 15:00 cefTRIAXone [Rocephin] 1 gm IVPUSH DAILY@1500 11/11/18 05:11 BASIC METABOLIC PANEL,BMP [CHEM] Routine CBC WITH AUTO DIFF [HEME] Routine 11/11/18 08:00 Aspirin [Halfprin] 81 mg PO Q48H - Assessment Assessment:: 78 yo male hospital day #2 admitted with sepsis secondary to community acquired pneumonia. Labs stable/improved today. Symptoms about the same as yesterday except GI symptoms have improved. - Plan Plan:: 78 yo male admitted with sepsis secondary to community acquired pneumonia. #1 Sepsis, secondary to #2 - Met criteria on admission with tachypnea and fever. - Initial lactic normal; therefore, this was not repeated. - He got IV fluids in the ER. Given absence of tachycardia and significant BP elevation, will hold off on further IV fluids and bolus PRN. #2 Community Acquired Pneumonia - Left lower lobe pneumonia seen on x-ray and CT. He also has crackles in the LLL. - CURB-65 score is 2. Given this as well as his meeting of sepsis criteria, inpatient admission appropriate. - Per current guidelines, will treat with ceftriaxone and azithromycin. Will continue IV antibiotics until afebrile >24 hours and then plan to transition to PO antibiotics. - Wean oxygen as able. - Follow-up CXR recommended in 4-6 weeks. #3 Acute on chronic diastolic CHF - BNP significantly elevated but no evidence on exam or x-ray of significant fluid overload. Weight is also down from admission but this is on a different scale. - Patient's notes his abdomen is usually where the fluid is seen. - Therefore, will do an IV dose of 20 mg lasix this am and monitor I/O throughout the day today to determine whether initial dosing is needed. - Troponin mildly elevated on admission but was not repeated as he is not having any ACS symptoms and his dyspnea started >48 hours prior to admission in which case the troponin would have been expected to be much more elevated upon ER presentation if the cause for symptoms was an ACS. - Continue home medications. #4 CKD - Creatinine is at his baseline. - Will monitor daily and avoid any renal injuries. #5 Pulmonary Hypertension #6 Mitral Regurgitation #7 Hyperlipidemia #8 Obesity #9 Arthritis - All stable. - Continue home medications. #10 FELIPE - His will bring his CPAP machine from home. As above, patient is admitted to acute status based on meeting sepsis criteria as well as a CURB-65 score of 2 - anticipate that he will likely remain admitted through the weekend with potential dismissal on Monday. Continue home medications apart from vitamins and ibuprofen. Lovenox for VTE prophylaxis. Patient is full code - discussed with him on admission.
[2018-11-10] MEDS: Acetaminophen 325 MG Tab PO PRN ×2 (11:28→19:57)
[2018-11-10] MEDS: cefTRIAXone 1 GM Vial IVPUSH SCH (13:59)
[2018-11-10] MEDS: Metoprolol Succinate 25 MG Tab.ER PO SCH (19:58)
[2018-11-10] MEDS: Simvastatin 10 MG Tab PO SCH (19:58)
[2018-11-11] MEDS: Acetaminophen 325 MG Tab PO PRN ×2 (05:26→19:40)
[2018-11-11] MEDS: Potassium Chloride 20 MEQ Tab.ER PO SCH (07:22)
[2018-11-11] MEDS: Calcium Carbonate/Vitamin D3 1250 MG-200 Unit Tab PO SCH (07:22)
[2018-11-11] MEDS: Enoxaparin 40 MG/0.4 ML Syringe SUBCUT SCH (07:22)
[2018-11-11] MEDS: Aspirin 81 MG Tab.EC PO SCH (07:25)
[2018-11-11] MEDS: Sodium Chloride 0.9% 10 ML Syringe FLUSH PRN (07:25)
[2018-11-11 08:56] LABS: CHLORIDE,CL 99 mmol/L (98-107); SODIUM,NA 134 mmol/L (136-145)
[2018-11-11 08:59] LABS: ANION GAP 12.7 mmol/L (10-20)
--- NOTE | 2018-11-11 09:04 | PCM.PN ---
- General Info Date of Service: 11/11/18 Subjective Update: 78 yo male hospital day #3 admitted with sepsis secondary to community acquired pneumonia after presenting to the ER 11/09 with worsening cough and shortness of breath. Had trouble with sleep overnight. He has had some issues with his CPAP since admission as well and has been requiring 5L of oxygen at night while sleeping. Otherwise, he does feel he is improving. He states his cough has improved as has his shortness of breath. He had sweats overnight but no fever. No chest pain. He has not been out of bed yet. His appetite is good and he is eating/ drinking well. - Review of Systems General: Reports: Night Sweats. Denies: Fever, Chills HEENT: Reports: No Symptoms Pulmonary: Reports: Shortness of Breath, Cough Cardiovascular: Reports: No Symptoms Gastrointestinal: Reports: No Symptoms Genitourinary: Reports: No Symptoms Musculoskeletal: Reports: No Symptoms Skin: Reports: No Symptoms Neurological: Reports: No Symptoms - Patient Data Vitals - Most Recent: Last Vital Signs Temp 37.9 C 11/11/18 05:26 Pulse 83 11/11/18 05:23 Resp 20 11/11/18 05:23 BP 125/68 11/11/18 05:23 Pulse Ox 92 L 11/11/18 07:26 Weight - Most Recent: 98.43 kg I&O - Last 24 Hours: Intake & Output 11/10/18 11/11/18 11/11/18 22:59 06:59 14:59 Intake Total 0 240 420 Output Total 300 Balance 0 -60 420 Lab Results Last 24 Hours: Laboratory Results - last 24 hr 11/10/18 11/11/18 Range/Units 01:40 08:10 Sodium 134 L (136-145) mmol/L Potassium 3.7 (3.5-5.1) mmol/L Chloride 99 (98-107) mmol/L Carbon Dioxide 26 (21-32) mmol/L Anion Gap 12.7 (10-20) mmol/L BUN 19 H (7-18) mg/dL Creatinine 1.1 (0.70-1.30) mg/dL Est Cr Clr Drug Dosing 55.30 mL/min Estimated GFR (MDRD) > 60 Glucose 124 H (74-106) mg/dL Calcium 8.1 L (8.5-10.1) mg/dL Urine Color Jeannette H (YELLOW) Urine Appearance Clear (CLEAR) Urine pH 6.0 (5.0-8.0) Ur Specific [place] 1.015 Urine Protein 100 H (NEGATIVE) mg/dL Urine Glucose (UA) Negative (NEGATIVE) mg/dL Urine Ketones 15 H (NEGATIVE) mg/dL Urine Occult Blood Trace-lysed H (NEGATIVE) Urine Nitrite Negative (NEGATIVE) Urine Bilirubin Small H (NEGATIVE) Urine Urobilinogen 2.0 H (0.2) EU/dL Ur Leukocyte Esterase Negative (NEGATIVE) Urine RBC 0-5 (NOT SEEN) /HPF Urine WBC 0-5 (NOT SEEN) /HPF Ur Squamous Epith Cells Rare (NEGATIVE) /HPF Urine Bacteria Not seen (NEGATIVE) /HPF Urine Mucus Not seen (NEGATIVE) /LPF Mina Results Last 24 Hours: Microbiology 11/09/18 16:02 Aerobic Blood Culture - Preliminary Blood - Venous - Lab Draw NO GROWTH AFTER 1 DAY Anaerobic Blood Culture - Preliminary NO GROWTH AFTER 1 DAY 11/09/18 15:55 Aerobic Blood Culture - Preliminary Blood - Venous NO GROWTH AFTER 1 DAY Anaerobic Blood Culture - Preliminary NO GROWTH AFTER 1 DAY Med Orders - Current: Current Medications Acetaminophen (Tylenol) 650 mg PO Q6H PRN PRN Reason: Pain/Fever Last Admin: 11/11/18 05:26 Dose: 650 mg Aspirin (Halfprin) 81 mg PO Q48H [facility] Last Admin: 11/11/18 07:25 Dose: 81 mg Calcium Carbonate (Calcium Carbonate/Vitamin D 1250 Mg-200 Unit) 1 tab PO DAILY [facility] Last Admin: 11/11/18 07:22 Dose: 1 tab Ceftriaxone Sodium (Rocephin) 1 gm IVPUSH DAILY@1500 [facility] Last Admin: 11/10/18 13:59 Dose: 1 gm Enoxaparin Sodium (Lovenox) 40 mg SUBCUT DAILY [facility] Last Admin: 11/11/18 07:22 Dose: 40 mg Metoprolol Succinate (Toprol Xl) 25 mg PO BEDTIME [facility] Last Admin: 11/10/18 19:58 Dose: 25 mg Potassium Chloride (Klor-Con M20) 20 meq PO DAILY [facility] Last Admin: 11/11/18 07:22 Dose: 20 meq Simvastatin (Zocor) 10 mg PO BEDTIME [facility] Last Admin: 11/10/18 19:58 Dose: 10 mg Sodium Chloride (Saline Flush) 10 ml FLUSH ASDIRECTED PRN PRN Reason: Keep Vein Open Last Admin: 11/11/18 07:25 Dose: 10 ml Discontinued Medications Azithromycin (Zithromax) 500 mg PO ONETIME ONE Stop: 11/10/18 09:19 Last Admin: 11/10/18 09:52 Dose: 500 mg Ceftriaxone Sodium (Rocephin) 1 gm IVPUSH ONETIME ONE Stop: 11/09/18 15:55 Last Admin: 11/09/18 16:05 Dose: 1 gm Furosemide (Lasix) 20 mg IV ONETIME ONE Stop: 11/10/18 09:29 Last Admin: 11/10/18 09:52 Dose: 20 mg Sodium Chloride (Normal Saline) 1,000 mls @ 200 mls/hr IV ASDIRECTED MELODIE Last Admin: 11/09/18 15:10 Dose: 200 mls/hr - Exam General: Alert, Oriented, Cooperative, No Acute Distress HEENT: Mucous Membr. Moist/[place] Neck: Supple, Trachea Midline, No Thyromegaly. No: Lymphadenopathy Lungs: Normal Respiratory Effort, Crackles (left lower lobe) Cardiovascular: Regular Rate, Regular Rhythm, No Murmurs GI/Abdominal Exam: Normal Bowel Sounds, Soft, Non-Tender, No Organomegaly, No Distention, No Mass Extremities: Normal Inspection, Non-Tender, Pedal Edema (trace bilateral) Peripheral Pulses: 2+: Radial (L), Radial (R) Skin: Warm, Dry, Intact - Problem List & Annotations (1) Sepsis SNOMED Code(s): 02032369 Code(s): A41.9 - SEPSIS, UNSPECIFIED ORGANISM Status: Acute Current Visit : Yes Qualifiers: Sepsis type: sepsis due to unspecified organism Qualified Code(s): A41.9 - Sepsis, unspecified organism (2) Community acquired pneumonia SNOMED Code(s): 545237226 Code(s): J18.9 - PNEUMONIA, UNSPECIFIED ORGANISM Status: Acute Current Visit: Yes Qualifiers: Laterality: left Lung location: lower lobe of lung Qualified Code(s): J18.1 - Lobar pneumonia, unspecified organism (3) CHF (congestive heart failure) SNOMED Code(s): 90919613 Code(s): I50.9 - HEART FAILURE, UNSPECIFIED Status: Acute Current Visit: Yes Qualifiers: Heart failure type: combined systolic and diastolic Heart failure chronicity: acute on chronic Qualified Code(s): I50.43 - Acute on chronic combined systolic (congestive) and diastolic (congestive) heart failure (4) CKD (chronic kidney disease) SNOMED Code(s): 528840521 Code(s): N18.9 - CHRONIC KIDNEY DISEASE, UNSPECIFIED Status: Chronic Current Visit: Yes Qualifiers: Chronic kidney disease stage: stage 3 (moderate) Qualified Code(s): N18.3 - Chronic kidney disease, stage 3 (moderate) (5) Pulmonary hypertension SNOMED Code(s): 91991331 Code(s): I27.20 - PULMONARY HYPERTENSION, UNSPECIFIED Status: Chronic Current Visit: Yes (6) Mitral regurgitation SNOMED Code(s): 44743203 Code(s): I34.0 - NONRHEUMATIC MITRAL (VALVE) INSUFFICIENCY Status: Chronic Current Visit: Yes Qualifiers: Cardiac valve disease etiology: nonrheumatic Qualified Code(s): I34.0 - Nonrheumatic mitral (valve) insufficiency (7) Hyperlipemia SNOMED Code(s): 58790713 Code(s): E78.5 - HYPERLIPIDEMIA, UNSPECIFIED Status: Chronic Current Visit: Yes Qualifiers: Hyperlipidemia type: mixed hyperlipidemia Qualified Code(s): E78.2 - Mixed hyperlipidemia (8) Obesity SNOMED Code(s): 101959815, 324268081 Code(s): E66.9 - OBESITY, UNSPECIFIED Status: Chronic Current Visit: Yes Qualifiers: Obesity type: due to excess calories (9) Arthritis SNOMED Code(s): 6975555 Code(s): M19.90 - UNSPECIFIED OSTEOARTHRITIS, UNSPECIFIED SITE Status: Chronic Current Visit: Yes (10) FELIPE (obstructive sleep apnea) SNOMED Code(s): 27281151 Code(s): G47.33 - OBSTRUCTIVE SLEEP APNEA (ADULT) (PEDIATRIC) Status: Chronic Current Visit: Yes - Problem List Review Problem List Initiated/Reviewed/Updated: Yes - My Orders Last 24 Hours: My Active Orders 11/10/18 09:19 Dietary Supplements [RC] 10,11/10/18 10:15 Calcium Carbonate/Vitamin D3 [Calcium Carbonate/Vitamin D 1250 MG-200 Unit] 1 tab PO DAILY 11/10/18 15:00 cefTRIAXone [Rocephin] 1 gm IVPUSH DAILY@1500 11/11/18 08:00 Aspirin [Halfprin] 81 mg PO Q48H 11/11/18 08:10 CBC WITH AUTO DIFF [HEME] Routine - Assessment Assessment:: 78 yo male hospital day #3 admitted with sepsis secondary to community acquired pneumonia. No longer meeting sepsis criteria. Symptoms and labs stable/improved. - Plan Plan:: 78 yo male admitted with sepsis secondary to community acquired pneumonia. #1 Sepsis, secondary to #2 - Met criteria on admission with tachypnea and fever. No longer meeting criteria as both are resolved. - Initial lactic normal; therefore, this was not repeated. - He got IV fluids in the ER. Given absence of tachycardia and significant BP elevation, will hold off on further IV fluids and bolus PRN. #2 Community Acquired Pneumonia - Left lower lobe pneumonia seen on x-ray and CT. He also has crackles in the LLL. - Patient is improving. He is still requiring oxygen throughout the day and increased overnight compared to his baseline as well. - Will continue ceftriaxone and azithromycin today. - Wean oxygen as able. - Follow-up CXR recommended in 4-6 weeks. #3 Acute on chronic diastolic CHF - BNP significantly elevated but no evidence on exam or x-ray of significant fluid overload. Weight down further today compared to yesterday after 1 dose of IV lasix yesterday. - Symptoms are also improving. - Therefore, will resume his usual home dose of 40 mg PO lasix this am. - Continue home medications. #4 CKD - Creatinine is at his baseline. - Will monitor daily and avoid any renal injuries. #5 Pulmonary Hypertension #6 Mitral Regurgitation #7 Hyperlipidemia #8 Obesity #9 Arthritis - All stable. - Continue home medications. #10 FELIPE - His will bring his CPAP machine from home. Patient is improving but is not meeting criteria for discharge yet (ideally weaned off oxygen but may need to go home on oxygen depending on the timeline of this) - therefore, he will remain on acute status today. Anticipate he will be prepared for dismissal home in the next 24-48 hours. Continue home medications apart from vitamins and ibuprofen. Lovenox for VTE prophylaxis. Patient is full code - discussed with him on admission.
[2018-11-11] MEDS: Furosemide 40 MG Tab PO SCH (10:10)
[2018-11-11] MEDS: cefTRIAXone 1 GM Vial IVPUSH SCH (14:19)
[2018-11-11] MEDS: Simvastatin 10 MG Tab PO SCH (19:40)
[2018-11-11] MEDS: Metoprolol Succinate 25 MG Tab.ER PO SCH (19:40)
[2018-11-12 07:03] LABS: CHLORIDE,CL 98 mmol/L (98-107); SODIUM,NA 134 mmol/L (136-145)
[2018-11-12 07:05] LABS: ANION GAP 13.7 mmol/L (10-20)
[2018-11-12] MEDS: Calcium Carbonate/Vitamin D3 1250 MG-200 Unit Tab PO SCH (07:52)
[2018-11-12] MEDS: Enoxaparin 40 MG/0.4 ML Syringe SUBCUT SCH (07:52)
[2018-11-12] MEDS: Potassium Chloride 20 MEQ Tab.ER PO SCH (07:53)
[2018-11-12] MEDS: Furosemide 40 MG Tab PO SCH (07:53)
[2018-11-12] MEDS: Acetaminophen 325 MG Tab PO PRN (07:53)
[2018-11-12] MEDS ORDERED: Azithromycin 250 MG Tab PO SCH (08:00)
--- NOTE | 2018-11-12 09:08 | PN ---
Progress Note for LISSETTE HAMEED Date: 11/12/2018 Room #: VM.204 SUBJECTIVE: The patient is an 78-year-old male who is in fourth hospitalization day for pneumonia. He had been starting to get ill last week. He had been placed on Augmentin on 11/07/2018, but continued to get worse. Presented to the emergency room with more coughing and shortness of breath. At that time, he had had a normal white blood cell count at 10. Troponin was 0.06. ProBNP was 62958, AST was 56, ALT 99, and total bilirubin 2.0. He had flank pain, so an abdominal CT was done which was negative and his abdomen, however, did show left upper lobe infiltrate. Chest x-ray also did show left upper lobe pneumonia. The patient was switched to Rocephin and Zithromax. He has been requiring oxygen, which is not normal for him. He has also been feeling quite weak over the weekend. OBJECTIVE: General: Objectively, he is still feeling weak. He is having a little bit more productive cough. He does not have much appetite. He does not feel short of breath. He denies chest pain. Vital Signs: His weight here today is 99.1 kg which is down 3 kg from admission. His temperature is afebrile 36.6, pulse is 86, blood pressure is 131/66, and saturations are 94% on 2 L. Heart: Regular rate and rhythm. Lungs: Reveal inspiratory crackle on left base. Abdomen: Soft. Extremities: Lower extremities are not enlarged. No edema. LABORATORY DATA: His lab today shows his white blood cell count is 7.8, hemoglobin 11.8, and platelets are 275 with 73 neutrophils and 12 lymphocytes. Sodium is 134, potassium 3.7, creatinine is 1.0, GFR is greater than 60. Glucose 92. To note, his troponin is slightly elevated at 0.067, which is up slightly from weekend. His CRP is elevated at 30. ProBNP has improved greatly to 6660. Chest x-ray was obtained, which shows bilateral pneumonia. IMPRESSION: 1. Bilateral community-acquired pneumonia. 2. Hypoxemia related to pneumonia. 3. Elevated troponin. 4. Elevated LFTs. 5. Elevated proBNP. 6. Mild anemia. PLAN: We will check blood gases on patient. We will repeat EKG. We will do CRP. We will do blood gases on him and continue him right now on his Rocephin and Zithromax. GM11/12/2018 08:41:01 MODL: 11/12/2018 08:58:16 /[id number] MTDD
[2018-11-12] MEDS: Albuterol/Ipratropium 3.0-0.5 MG/3 ML Neb Soln NEB SCH ×3 (09:15→19:35)
--- NOTE | 2018-11-12 09:16 | CR ---
[id number] RAD/RAD Chest PA And Lateral EXAM: FRONTAL AND LATERAL CHEST INDICATION: Pneumonia follow-up. COMPARISON: November 09, 2018. DISCUSSION: Bilateral interstitial and airspace opacities have significantly increased particularly on the right. These changes suggest superimposed congestive heart failure with more localized airspace opacities in the left mid to lower lung likely representing pneumonia. Bilateral pneumonia is considered less likely. Evaluation for interval change of the left lung infiltrates is limited by the underlying pulmonary edema. IMPRESSION: 1. Development of mild to moderate congestive heart failure. 2. No definite change in left mid and lower lung infiltrates when allowances are made for development of edema. Daryn Mcgowan MD 11/12/18 0913 Thank you for allowing us to participate in the care of your patient.
[2018-11-12] MEDS ORDERED: Azithromycin 250 MG Tab PO ONE (10:15)
[2018-11-12] MEDS ORDERED: Iopamidol 612 MG/ML 100 ML Bottle IVPUSH ONE (10:49)
--- NOTE | 2018-11-12 12:08 | CT ---
[id number] CT/CTA Chest EXAM: CTA Chest CLINICAL DATA: POS D DIMER. COMPARISON: CT from November 09, 2018. FINDINGS: LUNGS: Again seen is a dense area of parenchymal consolidation with aerated bronchioles in the left lower lobe. Additionally, there is nonmass-like groundglass parenchymal opacity scattered throughout both lungs, lower lobe predominant. Small bilateral pleural effusions left greater than right. HEART AND GREAT VESSELS: Negative for pulmonary embolus. Cardiomegaly. Thoracic aorta atherosclerosis. MEDIASTINUM AND LYMPHATICS: Mediastinal and left hilar lymphadenopathy. AP window lymph node measures approximately 15 mm in short axis dimension. Lower right paratracheal node measures 16 mm in short axis diameter. UPPER ABDOMINAL ORGANS: 25 mm subcapsular hypodense mass in the right hepatic lobe. No change from November 09, 2018. Density suggests a simple cyst. BONES: Scattered changes of spondylosis in the spine. No fracture or osseous lesion. IMPRESSION: Negative for pulmonary embolus. Dense parenchymal opacification in the left lower lobe demonstrating an appearance most consistent with pneumonia. In addition there is mediastinal and left hilar lymphadenopathy, possibly reactive in the setting of pneumonia. However, there is also bilateral and fairly symmetric lower lobe predominant groundglass parenchymal opacities and small effusions in the setting of cardiomegaly. Findings suggest superimposed changes of fluid retention as well. Adrian Rivera MD 11/12/18 6795 Thank you for allowing us to participate in the care of your patient.
--- NOTE | 2018-11-12 13:28 | PCM.SN ---
- Free Text/Narrative Note: Pos D Dimer, did CTA which was neg for PE, but showed bilateral pneumonia. Reviewed case with Dr Vega, [facility] [facility] and he recommended to start vancomycin and await sputum cultures. Asked Pharmacy, Evelina Ross to help dose.
[2018-11-12] MEDS: cefTRIAXone 1 GM Vial IVPUSH SCH (14:22)
[2018-11-12] MEDS: Sodium Chloride 0.9% 10 ML Syringe FLUSH PRN ×2 (14:23→19:36)
[2018-11-12] MEDS: Metoprolol Succinate 25 MG Tab.ER PO SCH (19:35)
[2018-11-12] MEDS: Simvastatin 10 MG Tab PO SCH (19:35)
[2018-11-12] MEDS: Docusate Sodium 100 MG Cap PO SCH (19:35)
[2018-11-13] MEDS: Albuterol/Ipratropium 3.0-0.5 MG/3 ML Neb Soln NEB SCH ×4 (01:23→19:26)
[2018-11-13 06:55] LABS: CHLORIDE,CL 103 mmol/L (98-107); SODIUM,NA 138 mmol/L (136-145)
[2018-11-13 06:57] LABS: ANION GAP 9.8 mmol/L (10-20)
[2018-11-13] MEDS: Potassium Chloride 20 MEQ Tab.ER PO SCH (07:31)
[2018-11-13] MEDS: Enoxaparin 40 MG/0.4 ML Syringe SUBCUT SCH (07:31)
[2018-11-13] MEDS: Furosemide 40 MG Tab PO SCH (07:31)
[2018-11-13] MEDS: Azithromycin 250 MG Tab PO SCH (07:32)
[2018-11-13] MEDS: Docusate Sodium 100 MG Cap PO SCH ×2 (07:32→19:30)
[2018-11-13] MEDS: Calcium Carbonate/Vitamin D3 1250 MG-200 Unit Tab PO SCH (07:32)
[2018-11-13] MEDS: Aspirin 81 MG Tab.EC PO SCH (07:33)
--- NOTE | 2018-11-13 08:48 | CR ---
[id number] RAD/RAD Chest PA And Lateral EXAM: RAD Chest PA And Lateral INDICATION: PNEUMONIA FOLLOW-UP. COMPARISON: Yesterday. DISCUSSION: Persistent bilateral left greater than right parenchymal opacities. In the clinical setting of infection, findings are consistent with pneumonia. No change from yesterday. In the absence of complicating features, follow-up radiograph is recommended in 6 weeks as radiographic sequela of pneumonia can persist after clinical resolution. IMPRESSION: No change from yesterday. Adrian Rivera MD 11/13/18 0848 Thank you for allowing us to participate in the care of your patient.
--- NOTE | 2018-11-13 08:52 | PN ---
Progress Note for NINO LEYVA Date: 11/13/2018 Room #: VM.204 SUBJECTIVE: This is the 5th hospital day of Nino Leyva admitted with community-acquired pneumonia bilaterally with exacerbation of CHF. Yesterday, because of continued hypoxemia, we did do further investigation for other causes. He did have a positive D-dimer. Troponin was still slightly elevated. Blood gases were acceptable. He did have a CT scan of his chest, which was negative for PE but did show bilateral infiltrates. He was started on DuoNeb to help with pulmonary toilet. They did visit with Infectious Disease and they did recommend starting vancomycin as well as continuing his Zithromax and Rocephin. This morning, the patient is feeling a little bit better. He did walk a little bit with physical therapy yesterday. He is having a productive cough. His is present by his side and otherwise offers no new concerns or complaints. OBJECTIVE: Vital Signs: Objectively, his weight is down today to 97.3 kg down 2 kg from yesterday. Temperature 36.8, pulse is 65, blood pressure has dropped to 90/55, respiratory rate 20, and saturations are 98% on I believe 2 L. Skin: [place], warm, and dry. HEENT: Pharynx is normal. Heart: Regular rate with frequent ectopics. Lungs: Have few inspiratory crackles bilaterally. Abdomen: Soft. Extremities: Lower extremities, no edema. Neurologic: He is alert and pleasant to visit with. LABORATORY STUDIES: His lab shows his white blood cell count is 7.4, hemoglobin 11.9, stable platelets 311, 69 segs, 3 bands, 9 lymphocytes, 5 reactive lymphocytes, 13 monocytes. ESR is elevated at 40. Sodium is 138, potassium 3.9, creatinine 1.0, GFR greater than 60, calcium 7.9, albumin is 2.2. AST is 52 and ALT is 72, which has improved from admission. IMPRESSION: 1. Bilateral community-acquired pneumonia. 2. Exacerbation of congestive heart failure. 3. Elevated troponin, most likely due to stress from pneumonia. 4. Elevated LFTs, which are improving. 5. Mild anemia. 6. History of cardiomyopathy. 7. Obstructive sleep apnea. PLAN: Apparently last night, he was not able to tolerate a CPAP machine, so it was removed and he was placed back on oxygen. I feel that we can stop his telemetry as it just showed some frequent ectopics but no concerning rhythms. We will continue the same antibiotics right now. We will recheck lab work tomorrow. We will start nutritional supplement today. We will continue with the DuoNeb right now for respiratory toilet. GM11/13/2018 08:19:43 MODL: 11/13/2018 08:46:16 /[id number]
[2018-11-13] MEDS: Sodium Chloride 0.9% 10 ML Syringe FLUSH PRN ×3 (11:18→19:26)
[2018-11-13] MEDS: cefTRIAXone 1 GM Vial IVPUSH SCH (15:19)
[2018-11-13] MEDS ORDERED: Magnesium Hydroxide 400 MG/5 ML Susp 30 ML Cup PO ONE (17:51)
[2018-11-13] MEDS: Simvastatin 10 MG Tab PO SCH (19:30)
[2018-11-13] MEDS: Metoprolol Succinate 25 MG Tab.ER PO SCH (19:30)
[2018-11-14] MEDS: Albuterol/Ipratropium 3.0-0.5 MG/3 ML Neb Soln NEB SCH ×4 (00:53→19:15)
[2018-11-14 06:49] LABS: CHLORIDE,CL 104 mmol/L (98-107); SODIUM,NA 140 mmol/L (136-145)
[2018-11-14 06:52] LABS: ANION GAP 10.2 mmol/L (10-20)
[2018-11-14] MEDS: Potassium Chloride 20 MEQ Tab.ER PO SCH (07:44)
[2018-11-14] MEDS: Azithromycin 250 MG Tab PO SCH (07:44)
[2018-11-14] MEDS: Furosemide 40 MG Tab PO SCH (07:45)
[2018-11-14] MEDS: Enoxaparin 40 MG/0.4 ML Syringe SUBCUT SCH (07:45)
[2018-11-14] MEDS: Docusate Sodium 100 MG Cap PO SCH ×2 (07:45→19:18)
[2018-11-14] MEDS: Calcium Carbonate/Vitamin D3 1250 MG-200 Unit Tab PO SCH (07:45)
[2018-11-14] MEDS ORDERED: Sodium Phosphate,Monobasic/Sodium Phosphate,Dibasic Enema 133 ML Bottle RECTAL PRN (08:25)
[2018-11-14] MEDS ORDERED: Bisacodyl 10 MG Supp RECTAL PRN (08:25)
--- NOTE | 2018-11-14 08:55 | PN ---
Progress Note for LISSETTE HAMEED Date: 11/14/2018 Room #: VM.204 SUBJECTIVE: The patient is in his 6th hospital day of being treated for pneumonia. He is starting to feel a little bit better. He comments his bowels have not worked yet. He is not coughing as much stuff. He was able to be weaned down some on his oxygen. He did have overnight oxygen study. However, I have not heard the results of that report yet. His is present in the room and offers no other concerns. OBJECTIVE: Vital Signs: Objectively, his weight is down 96.9 kg which is down 0.4 kg from yesterday. His temperature 37, pulse is 63, blood pressure is 96/48, respiratory rate 16, and saturations are 93% on 2 L. General: Objectively, his skin is pink, warm and dry. Heart: Regular rate and rhythm without murmurs or bruits. Lungs: Have rare crackles on bases. Abdomen: Bowel sounds present. Soft and nontender. Extremities: No edema. LABORATORY DATA: His sputum culture shows normal respiratory kelly. Blood cultures have no growth. He had been negative for influenza testing. His sodium is 140 today, potassium 4.2, and creatinine 1.1. GFR greater than 60. Magnesium was 2.2 today. CRP has improved to 14.4. ProBNP has improved to 4857. IMPRESSION: 1. Acute community-acquired pneumonia bilaterally. 2. Hypoxemia due to pneumonia. 3. Exacerbation of congestive heart failure. 4. Obstructive sleep apnea. 5. Hypoxemia requiring oxygen. 6. Constipation. PLAN: We will give more stimulants for bowels today. We will encourage up, ambulation and we will try to get the patient off hopefully oxygen continuous and hopefully we will be able to get him on p.r.n. oxygen and tomorrow we will repeat blood work and x-rays possibly may need home tomorrow versus the next day would like to try to get off oxygen if we were able to. GM11/14/2018 08:24:56 MODL: 11/14/2018 08:46:20 /[id number]
[2018-11-14] MEDS: cefTRIAXone 1 GM Vial IVPUSH SCH (15:06)
[2018-11-14] MEDS: Sodium Chloride 0.9% 10 ML Syringe FLUSH PRN (19:16)
[2018-11-14] MEDS: Simvastatin 10 MG Tab PO SCH (19:18)
[2018-11-14] MEDS: Metoprolol Succinate 25 MG Tab.ER PO SCH (19:19)
[2018-11-15] MEDS: Albuterol/Ipratropium 3.0-0.5 MG/3 ML Neb Soln NEB SCH ×3 (01:10→14:10)
[2018-11-15 06:53] LABS: CHLORIDE,CL 104 mmol/L (98-107); SODIUM,NA 141 mmol/L (136-145)
[2018-11-15 07:00] LABS: ANION GAP 12.3 mmol/L (10-20)
[2018-11-15] MEDS: Azithromycin 250 MG Tab PO SCH (07:54)
[2018-11-15] MEDS: Docusate Sodium 100 MG Cap PO SCH (07:54)
[2018-11-15] MEDS: Potassium Chloride 20 MEQ Tab.ER PO SCH (07:54)
[2018-11-15] MEDS: Furosemide 40 MG Tab PO SCH (07:54)
[2018-11-15] MEDS: Calcium Carbonate/Vitamin D3 1250 MG-200 Unit Tab PO SCH (07:54)
[2018-11-15] MEDS: Enoxaparin 40 MG/0.4 ML Syringe SUBCUT SCH (07:54)
[2018-11-15] MEDS: Aspirin 81 MG Tab.EC PO SCH (08:10)
[2018-11-15] MEDS ORDERED: predniSONE 20 MG Tab PO SCH (08:30)
--- NOTE | 2018-11-15 09:03 | PN ---
Progress Note for LISSETTE HAMEED Date: 11/15/2018 Room #: VM.204 SUBJECTIVE: This is the patient's 7th hospital day of being in with pneumonia. He is getting much better. He feels requiring oxygen. His nighttime sleep study, I am not certain what the results were. The patient's bowels have started to work, which he is much happier about and he is having somewhat of a productive cough, but not feeling short of breath. He does get his CPAP material from [facility]. OBJECTIVE: Vital Signs: Objectively, his weight is 95.6 kg which is down 7 kg from admission. His temperature is 36.4, pulse 67, blood pressure is 130/82, and saturations are 91% on 1 L without oxygen. He had dropped down to 85%. General: Objectively, he appears more alert. Heart: Regular rate and rhythm. Lungs: Have diminished breath sounds on bases. Abdomen: Soft. Extremities: No edema. IMAGING STUDIES: His chest x-ray is much improved with showing less bilateral infiltrate. LABORATORY DATA: Lab work shows his white blood cell count 9.7, hemoglobin is 12.2, and platelets 403. Sodium 141, potassium 4.3, creatinine 1.1, GFR greater than 60 and glucose 99. AST improved to 41, ALT still elevated at 73, alkaline phosphatase is normal at 94, total bilirubin is normal at . His sputum culture is negative. Blood cultures have been negative. IMPRESSION: 1. Community-acquired pneumonia. 2. Hypoxemia. 3. Exacerbation of congestive heart failure. PLAN: We will set the patient for discharge home today. He will need a home O2 evaluation. The patient will be added on oral prednisone to help with his lung function since he is still requiring oxygen. We will switch him from his vancomycin and Rocephin to Ceftin. We will continue the Zithromax. We will continue his DuoNeb. The patient does not want home health. The patient will see me back in a week's time in the clinic for recheck. The patient will also continue with his CPAP. GM11/15/2018 08:41:35 MODL: 11/15/2018 08:57:26 /[id number]
--- NOTE | 2018-11-15 09:35 | CR ---
[id number] RAD/RAD Chest PA And Lateral EXAM: RAD Chest PA And Lateral CLINICAL DATA: FOLLOW-UP PNEUMONIA COMPARISON: CORRELATION IS MADE WITH THE EXAM OF NOVEMBER 13, 2018. FINDINGS: The lower lobe infiltrate left is about 50% decreased but is still present. The lungs otherwise are clear. IMPRESSION: CLEARING OF LEFT LOWER LOBE PNEUMONIA. Yuniel Wang MD 11/15/18 0932 Thank you for allowing us to participate in the care of your patient.
[2018-11-15 10:06] VITALS: BP 144/77
[2018-11-15] MEDS ORDERED: Cefuroxime 250 MG Tab PO SCH (20:00)
--- NOTE | 2018-11-16 03:07 | DISCH ---
PRIMARY DIAGNOSES: 1. Community-acquired bilateral pneumonia. 2. Exacerbation of chronic obstructive pulmonary disease. 3. Hypoxemia related to pneumonia. 4. Obstructive sleep apnea. 5. Elevated liver function tests. 6. Hypertension. 7. Mild dehydration with MARNI. 8. Weakness due to illness. SUMMARY OF HISTORY AND PHYSICAL: The patient is an 78-year-old male presents to the emergency room on 11/09/2018 with complaints of body aches and decreased urine output. He had some antibiotics for some sinus infection a few days ago and felt that this was getting worse. He was concerned. When he presented to the emergency room, his oxygen levels were noted to be low. LABORATORY DATA: His lab work shows white blood cell count 10.0, hemoglobin 11.3, and platelets were 197 with sodium 133, potassium 3.9, creatinine 1.4, BUN 21, GFR 49, glucose 122, calcium 8.2, AST 56, ALT 99, total bilirubin 2.0, troponin 0.060, alkaline phosphatase 127, proBNP 79706, and albumin 2.7. Lactic acid was 1.5. The patient received a liter of fluid and Rocephin 1 g. He did have a CT scan done of his abdomen because of concerns with flank pain that came back for negative abdominal etiology of pain, but he was found to have a left lower lobe pneumonia. SUMMARY OF HOSPITAL COURSE: The patient was placed on acute care, admitted, given IV hydration to help with rehydration as well as antibiotics. He had Zithromax started as well. Blood cultures were obtained. It was noted that the patient still continued to require significant amount of oxygen. On 11/12/2018, we had repeated his lactic acid as this had not been repeated since admission and that stayed normal. His proBNP had greatly improved to 6660. White blood cell count had stayed normal at 7.8 and hemoglobin 11.8. His sodium was 134 and potassium 3.7. Creatinine improved to 1.0. GFR greater than 60. Troponin still stayed elevated at 0.067, so repeat EKG was done which showed no changes of ST function. The patient did have blood gases done which did come back showing on 2 L his pH 7.43, pCO2 is 38, pO2 of 74, bicarb 25, saturations are 95% on 1 L. D-dimer was done which was elevated at 4.77 with normal being 0.58 or less, so a CTA of his lungs was done to rule out PE and that did come back negative for PE. To note, plain chest x-ray was done which showed quite a significant progression of infiltrates. He really was not showing signs of heart failure. His IV fluids had been stopped. I did confer on telephone with Infectious Disease and they did recommend starting vancomycin on the patient. The patient also was started on DuoNebs to help with the respiratory toilet. He continued to maintain a normal white blood cell count. ESR was done on 11/13/2018, which was 40. He received physical therapy for weakness, did continue to improve. It was noted that on 11/13/2018, his repeat LFTs had improved to AST of 52 and ALT of 72. On 11/14/2018, his CRP had improved to 14.4. ProBNP continued to improve at 4857. Vancomycin trough was checked on 11/14/2018 which was 11.3. By 11/15/2018, his white blood cell count was 9.7, hemoglobin 12.2, platelets 403 with 72 segs, 1 band, 14 lymphocytes. Sodium was 141, potassium 4.3, creatinine 1.1, BUN 16, GFR greater than 60, glucose 99, calcium was normal corrected at 9.3, AST was 41, ALT 73, albumin was 2.5, which had worsened and then had improved. To note, the patient was given evaluation for oxygen at night and he did require oxygen with his CPAP as he dropped down to 85% and with 1.5 L he was able to maintain above 88%. The patient then also was evaluated for home oxygen and without oxygen his saturations dropped down to 85%, but with oxygen at 1 L he was up to 93%, so it was felt the need home oxygen most likely temporary as his pneumonia improves. The patient was switched from DuoNeb treatments to Combivent Respimat for ease of use of medication at the time of discharge. It was also felt that prednisone may help his lung function so was started on the day of discharge at 20 mg daily. His vancomycin and Rocephin were felt to be able to be stopped. His sputum culture grew no bacteria and he was placed on Ceftin 500 mg and continued on Zithromax 500 mg. The patient was not felt in need of needing home health at all as he wanted to stay as active as possible. DISCHARGE MEDICATIONS: His medications at the time of discharge will be simvastatin 10 mg 1 pill daily, calcium with vitamin D 1 pill daily, potassium 20 mEq 1 pill daily, multivitamin 1 pill daily, aspirin 81 mg 1 pill daily, furosemide 40 mg 1 pill daily, metoprolol succinate 25 mg 1 pill daily, ibuprofen 200 mg q.6 hours p.r.n., Combivent Respimat 1 puff 4 times a day, Zithromax 500 mg daily for 3 days, Ceftin 500 mg 1 pill twice a day for 5 more days and prednisone 20 mg daily for 5 days. The patient will be on oxygen 1 L during the day and then liter and a half at night while sleeping with his CPAP. The patient is to return to see me in a week's time in the clinic and at that time, he will need a followup chest x-ray done. He will need to have a comprehensive metabolic profile done as well as CBC, proBNP, CRP, the patient also will need to have a followup echocardiogram done as well. At the time of discharge, the patient is full code. His was present in the room with him and did concur with current plan of care. GM11/15/2018 13:43:47 MODL: 11/16/2018 02:59:14 /[id number] BONIFACIO
== END 2018-11-15 15:20 | disposition home or self-care (01) | DRG 871 ==
LOC: VM.ED 14:18 → VM.MS 17:12
PROVIDERS: ADMIT Family Medicine; ATTEND Family Medicine
DX: A41.9 Sepsis, unspecified organism (principal); J18.1 Lobar pneumonia, unspecified organism; J18.9 Pneumonia, unspecified organism; I50.43 Acute on chronic combined systolic (congestive) and diastolic (congestive) heart failure; J44.1 Chronic obstructive pulmonary disease with (acute) exacerbation; N17.9 Acute kidney failure, unspecified; I13.0 Hypertensive heart and chronic kidney disease with heart failure and stage 1 through stage 4 chronic kidney disease, or unspecified chronic kidney disease; G47.33 Obstructive sleep apnea (adult) (pediatric); R94.5 Abnormal results of liver function studies; E86.0 Dehydration; I34.0 Nonrheumatic mitral (valve) insufficiency; E78.5 Hyperlipidemia, unspecified; E66.9 Obesity, unspecified; M19.90 Unspecified osteoarthritis, unspecified site; I50.9 Heart failure, unspecified; N18.3 Chronic kidney disease, stage 3 (moderate); H91.90 Unspecified hearing loss, unspecified ear; E78.00 Pure hypercholesterolemia, unspecified; G89.29 Other chronic pain; Z96.649 Presence of unspecified artificial hip joint; Z96.659 Presence of unspecified artificial knee joint; I27.20 Pulmonary hypertension, unspecified; Z68.30 Body mass index [BMI] 30.0-30.9, adult; Z79.82 Long term (current) use of aspirin; Z86.010 Personal history of colon polyps; Z79.899 Other long term (current) drug therapy
CPT/HCPCS: 36415; 36600; 71045; 71046; 71275; 74176; 80048; 80053; 80202; 81001; 82803; 83605; 83735; 83880; 84484; 85007; 85025; 85027; 85379; 85610; 85652; 86140; 87040; 87070; 87205; 87804; 87804-59; 93005; 94640; 94760; 96360; 96361; 97161-GP; 97530-GP; 99284-GF; 99285-25; A9270-GY; J0696; J1650; J1940; J3370; J7030; J7050; J7620-GY; Q9967

== ENCOUNTER 2019-06-14 19:07 | Emergency (ER) | payer MEDICARE, BC ==
[2019-06-14 19:16] VITALS: BP 125/78; PULSE 66
--- NOTE | 2019-06-14 19:19 | EDM.PDOC ---
ED HPI GENERAL MEDICAL PROBLEM - General Chief Complaint: Back Pain or Injury Stated Complaint: rib pain Time Seen by Provider: 06/14/19 19:19 - History of Present Illness INITIAL COMMENTS - FREE TEXT/NARRATIVE: Pt presents c/o left rib pain, fell in his shop and landed on a piece of mettle. left lower rib pain est ribs 8-10. Left Pain Score (Numeric/FACES): 7 - Related Data Allergies Allergy/AdvReac Type Severity Reaction Status Date / Time No Known Allergies Allergy Verified 06/14/19 19:12 Home Meds: Home Meds Simvastatin 10 mg PO DAILY 03/22/16 [History] Aspirin [Halfprin] 81 mg PO ASDIRECTED 11/09/18 [History] Calcium Citrate/Vitamin D3 [Calcium Citrate - Vit D Tablet] 1 each PO DAILY 09/25 [History] Furosemide [Lasix] 40 mg PO DAILY 11/09/18 [History] Ibuprofen 200 mg PO Q6HR PRN 11/09/18 [History] Metoprolol Succinate 25 mg PO DAILY 11/09/18 [History] Multivitamin [Multi-Day Vitamins] 1 tab PO DAILY 11/09/18 [History] Potassium Chloride 20 meq PO DAILY 11/09/18 [History] Albuterol/Ipratropium [Combivent Respimat] 4 gm IH QID #1 aer.w.adap 11/15/18 [ Rx] Past Medical History HEENT History: Reports: Hard of Hearing Cardiovascular History: Reports: Heart Failure, High Cholesterol, Pulmonary Hypertension, Other (See Below) Other Cardiovascular History: Cardiomegaly. Mitral valve regurgitation. Abnormal EKG. Hx of chest pain. Bradycardia Respiratory History: Reports: Sleep Apnea, SOB, Other (See Below) Other Respiratory History: Right lung lesion Gastrointestinal History: Reports: Cholelithiasis, Colon Polyp, Other (See Below ) Other Gastrointestinal History: Biliary sludge. Peptic Ulcer Genitourinary History: Reports: Acute Renal Failure, Other (See Below) Other Genitourinary History: CKD Musculoskeletal History: Reports: Osteoarthritis, Other (See Below) Other Musculoskeletal History: Carpal tunnel Neurological History: Reports: Headaches, Chronic, Vertigo Psychiatric History: Reports: None Endocrine/Metabolic History: Reports: Obesity/BMI 30+, Other (See Below) Other Endocrine/Metabolic History: Hyperglycemia Hematologic History: Reports: None Immunologic History: Reports: None Oncologic (Cancer) History: Reports: None Dermatologic History: Reports: Other (See Below) Other Dermatologic History: Pigmented skin lesion. Lipoma - Infectious Disease History Infectious Disease History: Reports: Meningitis - Past Surgical History HEENT Surgical History: Reports: None Cardiovascular Surgical History: Reports: None Respiratory Surgical History: Reports: None GI Surgical History: Reports: Colonoscopy Male Surgical History: Reports: None Endocrine Surgical History: Reports: None Neurological Surgical History: Reports: None Musculoskeletal Surgical History: Reports: Carpal Tunnel, Hip Replacement, Knee Replacement Oncologic Surgical History: Reports: None Dermatological Surgical History: Reports: None Social & Family History - Family History Family Medical History: Noncontributory Cardiac: Reports: Heart Failure Neurological: Reports: CVA Endocrine/Metabolic: Reports: Diabetes, type II Oncologic: Reports: Colon - Tobacco Use Smoking Status *Q: Never Smoker - Caffeine Use Caffeine Use: Reports: Coffee - Living Situation & Occupation Living situation: Reports: , with Significant Other Occupation: Retired ED ROS GENERAL - Review of Systems Review Of Systems: See Below Constitutional: Reports: No Symptoms HEENT: Reports: No Symptoms Respiratory: Reports: No Symptoms Cardiovascular: Reports: No Symptoms Endocrine: Reports: No Symptoms GI/Abdominal: Reports: No Symptoms : Reports: No Symptoms Musculoskeletal: Reports: Other (left lower rib pain . ) Skin: Reports: No Symptoms Neurological: Reports: No Symptoms ED EXAM, GENERAL - Physical Exam Exam: See Below Free Text/Narrative:: s/p fall no loc did not hit is head, fell in shop lanced on piece of mettle left side. Pt with rib pain. X ray noted minimal fracture of the left ninth rib. Pt refused pain medication as it makes him "sick" Tylenol and self splinting for pain, ice as needed, IS every hours follow up with pcp for continued care. Exam Limited By: No Limitations General Appearance: Alert, WD/WN, No Apparent Distress Ears: Normal External Exam, Normal Canal, Hearing Grossly Normal, Normal TMs Nose: Normal Inspection, Normal Mucosa, No Blood Throat/Mouth: Normal Inspection Head: Atraumatic, Normocephalic Neck: Normal Inspection, Supple, Non-Tender, Full Range of Motion Respiratory/Chest: No Respiratory Distress, Lungs Clear, Normal Breath Sounds, No Accessory Muscle Use, Other (pain left ribs est rib 8-10 s/p fall. ) Cardiovascular: Normal Peripheral Pulses Course - Vital Signs Last Recorded V/S: Last Vital Signs Temp 36.0 C 06/14/19 19:13 Pulse 66 06/14/19 19:13 Resp 18 06/14/19 19:13 BP 125/78 06/14/19 19:13 Pulse Ox 95 06/14/19 19:13 - Orders/Labs/Meds Meds: Medications Discontinued Medications Generic Name Dose Route Start Last Admin Trade Name Freq PRN Reason Stop Dose Admin Acetaminophen 1,000 mg 06/14/19 19:37 06/14/19 19:59 Tylenol PO 06/14/19 19:38 1,000 mg NOW ONE Administration Departure - Departure Time of Disposition: 20:37 Disposition: Home, Self-Care 01 Condition: Fair Clinical Impression: Rib fracture - Discharge Information Instructions: Rib Fracture, [id number], Incentive Spirometer Forms: ED Department Discharge Care Plan Goals: Tylenol and self splinting for pain, ice as needed, IS every hours follow up with pcp for continued care.
[2019-06-14] MEDS ORDERED: Acetaminophen 325 MG Tab PO ONE (19:37)
--- NOTE | 2019-06-14 20:27 | CR ---
[id number] RAD/RAD Ribs Left W PA Chest Exam: RAD Ribs Left W PA Chest Clinical Data: TRAUMA COMPARISON: CORRELATION IS MADE WITH THE EXAM OF NOVEMBER 15, 2018 FINDINGS: There is a minimal fracture of the lateral ninth rib The lungs are clear There is no pneumothorax The cardiomediastinal contour is stable IMPRESSION: MINIMAL FRACTURE LEFT NINTH RIB CONSIDER CT ABDOMEN IF THERE IS CONCERN FOR SPLENIC INJURY Yuniel Wang MD 06/14/192025 Thank you for allowing us to participate in the care of your patient.
== END 2019-06-14 20:44 | disposition home or self-care (01) ==
LOC: VM.ED 19:07
DX: S22.32XA Fracture of one rib, left side, initial encounter for closed fracture (principal); Z79.82 Long term (current) use of aspirin; Z79.899 Other long term (current) drug therapy; I50.9 Heart failure, unspecified; N18.9 Chronic kidney disease, unspecified; E66.9 Obesity, unspecified; W19.XXXA Unspecified fall, initial encounter; Y92.513 Shop (commercial) as the place of occurrence of the external cause
CPT/HCPCS: 71101-LT; 99283-25; 99283-GF; A9270-GY

== ENCOUNTER 2020-04-25 20:00 | Emergency (ER) | payer MEDICARE, BC ==
[2020-04-25 20:12] VITALS: BP 134/68; PULSE 72
--- NOTE | 2020-04-25 20:25 | EDM.PDOC ---
ED HPI GENERAL MEDICAL PROBLEM - General Chief Complaint: Respiratory Problem Stated Complaint: cough Time Seen by Provider: 04/25/20 20:30 Source of Information: Reports: Patient History Limitations: Reports: No Limitations - History of Present Illness INITIAL COMMENTS - FREE TEXT/NARRATIVE: Patient comes into the emergency department with complaints of cough, chills, concerns with Covid19. Patient states that he has been doctoring for the last 6 months regarding fluid overload concerns and shortness of breath at rest. He states that that has been fairly well however over the course of the last 7 days the patient has noticed more severe coughing, Nasal congestion, sputum production, and chills. Patient states that he has had pneumonia in the past and is waited too long and ended up being hospitalized for extended period of time and he was concerned about that. Patient also states that he was Recently exposed to a Covid19 patient. Patient States he does notice he does get short of breath with activity however when he is resting he does not get short of breath. They did increase his lasix this past week for a period of one week and it has helped out a lot the patients states. The swelling and SOB has decreased significantly. Patient also states that he has been coughing more progressively lately. Since Monday he feels that his symptoms have leveled out he does not feel any worse today than he did yesterday however he states he still has low energy and fatigue. He denies ever running a fever but has been having chills daily. Onset: Gradual Improves with: Reports: None Worsens with: Reports: None Associated Symptoms: Reports: No Other Symptoms Headache Pain Score (Numeric/FACES): 2 - Related Data Allergies Allergy/AdvReac Type Severity Reaction Status Date / Time No Known Allergies Allergy Verified 06/14/19 19:12 Home Meds: Home Meds Simvastatin 10 mg PO DAILY 03/22/16 [History] Aspirin [Halfprin] 81 mg PO ASDIRECTED 11/09/18 [History] Calcium Citrate/Vitamin D3 [Calcium Citrate - Vit D Tablet] 1 each PO DAILY 11/09/18 [History] Furosemide [Lasix] 40 mg PO DAILY 11/09/18 [History] Metoprolol Succinate 12.5 mg PO DAILY 11/09/18 [History] Multivitamin [Multi-Day Vitamins] 1 tab PO DAILY 11/09/18 [History] Potassium Chloride 40 meq PO DAILY 11/09/18 [History] Acetaminophen [Pain Reliever] 1,000 mg PO Q4H PRN 04/25/20 [History] Ondansetron [Zofran] 4 mg PO Q6H PRN 04/25/20 [History] traMADol [Ultram] 1 - 2 tab PO Q6H PRN 04/25/20 [History] Past Medical History HEENT History: Reports: Hard of Hearing Cardiovascular History: Reports: Heart Failure, High Cholesterol, Pulmonary Hypertension, Other (See Below) Other Cardiovascular History: Cardiomegaly. Mitral valve regurgitation. Abnormal EKG. Hx of chest pain. Bradycardia Respiratory History: Reports: Sleep Apnea, SOB, Other (See Below) Other Respiratory History: Right lung lesion Gastrointestinal History: Reports: Cholelithiasis, Colon Polyp, Other (See Below) Other Gastrointestinal History: Biliary sludge. Peptic Ulcer Genitourinary History: Reports: Acute Renal Failure, Other (See Below) Other Genitourinary History: CKD Musculoskeletal History: Reports: Osteoarthritis, Other (See Below) Other Musculoskeletal History: Carpal tunnel Neurological History: Reports: Headaches, Chronic, Vertigo Psychiatric History: Reports: None Endocrine/Metabolic History: Reports: Obesity/BMI 30+, Other (See Below) Other Endocrine/Metabolic History: Hyperglycemia Hematologic History: Reports: None Immunologic History: Reports: None Oncologic (Cancer) History: Reports: None Dermatologic History: Reports: Other (See Below) Other Dermatologic History: Pigmented skin lesion. Lipoma - Infectious Disease History Infectious Disease History: Reports: Meningitis - Past Surgical History HEENT Surgical History: Reports: None Cardiovascular Surgical History: Reports: None Respiratory Surgical History: Reports: None GI Surgical History: Reports: Colonoscopy Male Surgical History: Reports: None Endocrine Surgical History: Reports: None Neurological Surgical History: Reports: None Musculoskeletal Surgical History: Reports: Carpal Tunnel, Hip Replacement, Knee Replacement Oncologic Surgical History: Reports: None Dermatological Surgical History: Reports: None Social & Family History - Family History Family Medical History: Noncontributory Cardiac: Reports: Heart Failure Neurological: Reports: CVA Endocrine/Metabolic: Reports: Diabetes, type II Oncologic: Reports: Colon - Caffeine Use Caffeine Use: Reports: Coffee - Living Situation & Occupation Living situation: Reports: , with Significant Other Occupation: Retired ED ROS GENERAL - Review of Systems Review Of Systems: Comprehensive ROS is negative, except as noted in HPI. Constitutional: Reports: Chills, Fatigue HEENT: Reports: No Symptoms Respiratory: Reports: Shortness of Breath, Cough, Sputum Cardiovascular: Reports: Dyspnea on Exertion, Edema Endocrine: Reports: No Symptoms GI/Abdominal: Reports: No Symptoms : Reports: No Symptoms Musculoskeletal: Reports: No Symptoms Skin: Reports: No Symptoms Neurological: Reports: No Symptoms Psychiatric: Reports: No Symptoms Hematologic/Lymphatic: Reports: No Symptoms Immunologic: Reports: No Symptoms ED EXAM, GENERAL - Physical Exam Exam: See Below Exam Limited By: No Limitations General Appearance: Alert, WD/WN, No Apparent Distress Eye Exam: Bilateral Eye: EOMI, PERRL Ears: Normal External Exam, Normal Canal, Hearing Grossly Normal, Normal TMs Ear Exam: Bilateral Ear: Auricle Normal, Canal Normal, TM normal Head: Atraumatic, Normocephalic Neck: Normal Inspection, Supple, Non-Tender, Full Range of Motion Respiratory/Chest: No Respiratory Distress, No Accessory Muscle Use, Chest Non- Tender, Decreased Breath Sounds Cardiovascular: Normal Peripheral Pulses, Regular Rate, Rhythm, No JVD Back Exam: Normal Inspection, Full Range of Motion Extremities: Normal Inspection, Normal Range of Motion, Non-Tender, Normal Capil jayshree Refill, Pedal Edema Neurological: Alert, Oriented, CN II-XII Intact, Normal Gait Psychiatric: Normal Affect, Normal Mood Skin Exam: Warm, Dry, Intact, Normal Color Course - Vital Signs Last Recorded V/S: Last Vital Signs Temp 36.6 C 04/25/20 20:08 Pulse 72 04/25/20 20:08 Resp 18 04/25/20 20:08 BP 134/68 04/25/20 20:08 Pulse Ox 95 04/25/20 20:08 - Orders/Labs/Meds Orders: Active Orders 24 hr Category Date Time Status Chest 1V Frontal [CR] Stat Exams 04/25/20 20:33 Taken Labs: Laboratory Tests 04/25/20 04/25/20 04/25/20 Range/Units 20:14 20:52 20:52 WBC 6.2 (4.0-10.0) x10^3/uL RBC 4.31 L (4.5-6.0) x10^6/uL Hgb 13.3 L (14.0-18.0) g/dL Hct 39.1 L (40.0-52.0) % MCV 90.7 (78.0-93.0) fL MCH 30.9 (26.0-32.0) pg MCHC 34.0 (32.0-36.0) g/dL RDW Coeff of Barbara 14.8 (10.0-15.0) % Plt Count 140 D (130-400) x10^3/uL Neut % (Auto) 72.7 (50.0-80.0) % Lymph % (Auto) 15.4 L (25.0-50.0) % [place] % (Auto) 10.9 (2.0-11.0) % Eos % (Auto) 0.8 (0.0-4.0) % Baso % (Auto) 0.2 (0.2-1.2) % Sodium 134 L (136-145) mmol/L Potassium 4.3 (3.5-5.1) mmol/L Chloride 97 L (98-107) mmol/L Carbon Dioxide 28 (21-32) mmol/L Anion Gap 13.3 (10-20) mmol/L BUN 29 H (7-18) mg/dL Creatinine 1.6 H (0.70-1.30) mg/dL Est Cr Clr Drug Dosing TNP Estimated GFR (MDRD) 42 Glucose 92 (74-106) mg/dL Calcium 8.4 L (8.5-10.1) mg/dL Corrected Calcium 8.48 L (8.5-10.1) mg/dL Total Bilirubin 1.3 H (0.2-1.0) mg/dL AST 41 H (15-37) U/L ALT 40 (16-63) U/L Alkaline Phosphatase 124 H (46-116) U/L Troponin I 0.055 (<=0.056) ng/mL NT-Pro-B Natriuret Pep 5254 H (<=450) pg/mL Total Protein 7.0 (6.4-8.2) g/dL Albumin 3.9 (3.4-5.0) g/dL Globulin 3.1 Albumin/Globulin Ratio 1.26 SARS CoV-2 RNA Rapid DAWNA Positive H (NEGATIVE) Departure - Departure Time of Disposition: 21:40 Disposition: Home, Self-Care 01 Condition: Good Clinical Impression: COVID-19, Cough, Chills (without fever) - Discharge Information *PRESCRIPTION DRUG MONITORING PROGRAM REVIEWED*: Not Applicable *COPY OF PRESCRIPTION DRUG MONITORING REPORT IN PATIENT JANA: Not Applicable Instructions: COVID-19: How to Protect Yourself and Others - [facility] Referrals: Ana Bear MD [Primary Care Provider] - Forms: ED Department Discharge Additional Instructions: 1. rest 2. increase your water intake 3. Continue all at home medications 4. Activity and diet as tolerated 5. Can take over the counter Tylenol for any pain or discomfort 6. Follow up with PCP if symptoms continue, return, or progress 7. Call with any questions or concerns Sepsis Event Note (ED) - Evaluation Sepsis Screening Result: No Definite Risk - Focused Exam Vital Signs: Vital Signs Temp Pulse Resp BP Pulse Ox 04/25/20 20:08 36.6 C 72 18 134/68 95 - My Orders Last 24 Hours: My Active Orders 04/25/20 20:33 Chest 1V Frontal [CR] Stat - Assessment/Plan Last 24 Hours: My Active Orders 04/25/20 20:33 Chest 1V Frontal [CR] Stat Assessment:: 1. covid-19 positive 2. cough 3. chills Plan: 1. Labs completed in the ER. Results reviewed with the patient 2. Covid-19- positive 3. chest xray completed 6. Patient and nursing staff was updated regarding the plan of care 7. Education provided the patient regarding activity, diet, rest, [id number] medication modalities, and follow-up care was provided 8. Patient and family are agreeable to the above plan of care 9. All questions and concerns were addressed with the patient and family prior to discharge
[2020-04-25 21:33] LABS: ANION GAP 13.3 mmol/L (10-20); CHLORIDE,CL 97 mmol/L (98-107); SODIUM,NA 134 mmol/L (136-145)
--- NOTE | 2020-04-27 10:57 | CR ---
[id number] RAD/RAD Chest PA or AP 1V EXAM: RAD Chest PA or AP 1V INDICATION: COUGH COMPARISON: June 14, 2019. DISCUSSION: Cardiomediastinal silhouette is prominent. No infiltrate, effusion, pneumothorax, or edema. Bibasilar subsegmental atelectasis and/or scarring. IMPRESSION: Bibasilar subsegmental atelectasis and/or scarring. Kwabena Rodas DO 04/27/20 1026 Thank you for allowing us to participate in the care of your patient.
== END 2020-04-25 22:05 | disposition home or self-care (01) ==
LOC: VM.ED 20:00
DX: U07.1 COVID-19 (principal); I50.9 Heart failure, unspecified; E78.00 Pure hypercholesterolemia, unspecified; E66.9 Obesity, unspecified; N18.9 Chronic kidney disease, unspecified; Z79.899 Other long term (current) drug therapy
CPT/HCPCS: 36415; 71045; 80053; 83880; 84484; 85025; 99284; 99285-25; U0002

== ENCOUNTER 2020-05-02 16:18 | Observation (INO) | payer MEDICARE, BC ==
--- NOTE | 2020-05-02 16:50 | EDM.PDOC ---
ED HPI GENERAL MEDICAL PROBLEM - General Stated Complaint: COVID + Time Seen by Provider: 05/02/20 16:25 Source of Information: Reports: Patient, Family History Limitations: Reports: No Limitations - History of Present Illness INITIAL COMMENTS - FREE TEXT/NARRATIVE: She comes emergency department today from home with complaints of weakness. This patient was diagnosed with COVID-19 on 04-25-20. He has been home since that time. He does uses oxygen intermittently at night with his CPAP and he has been using it more during the day because he feels a little bit more short of breath fatigued and tired. He denies any fever or chills. He does complain of some generalized body aches. He does not have much of a cough. It is nonproductive. He has had no pain in his chest. He is just more short of breath than has no energy. He has no loss of taste or smell. No abdominal pain nausea or vomiting. No sinus congestion drainage pressure. No hematuria dysuria or urinary frequency. No black or tarry stools. No diarrhea. Does have a history of congestive heart failure he feels that he is up about 5 to 7 pounds in the last week or so but he has not weighed himself. He recently about a month and a half or so ago had a stay in the hospital where he was in [place] congestive heart failure. He has been taking his Lasix as prescribed. He has been exposed to multiple people primarily most of his family who have been Covid positive. Had a poor appetite. He has not drink much for fluids over the past couple of days. - Related Data Allergies Allergy/AdvReac Type Severity Reaction Status Date / Time No Known Allergies Allergy Verified 06/14/19 19:12 Home Meds: Home Meds Simvastatin 10 mg PO DAILY 03/22/16 [History] Aspirin [Halfprin] 81 mg PO BEDTIME 11/09/18 [History] Calcium Citrate/Vitamin D3 [Calcium Citrate - Vit D Tablet] 1 each PO DAILY 11/09/18 [History] Furosemide [Lasix] 40 mg PO DAILY 11/09/18 [History] Metoprolol Succinate 12.5 mg PO DAILY 11/09/18 [History] Multivitamin [Multi-Day Vitamins] 1 tab PO DAILY 11/09/18 [History] Potassium Chloride 20 meq PO DAILY 11/09/18 [History] Acetaminophen [Pain Reliever] 1,000 mg PO Q4H PRN 04/25/20 [History] Ondansetron [Zofran] 4 mg PO Q6H PRN 04/25/20 [History] traMADol [Ultram] 1 - 2 tab PO Q6H PRN 04/25/20 [History] Past Medical History HEENT History: Reports: Hard of Hearing Cardiovascular History: Reports: Heart Failure, High Cholesterol, Pulmonary Hypertension, Other (See Below) Other Cardiovascular History: Cardiomegaly. Mitral valve regurgitation. Abnormal EKG. Hx of chest pain. Bradycardia Respiratory History: Reports: Sleep Apnea, SOB, Other (See Below) Other Respiratory History: Right lung lesion Gastrointestinal History: Reports: Cholelithiasis, Colon Polyp, Other (See Below) Other Gastrointestinal History: Biliary sludge. Peptic Ulcer Genitourinary History: Reports: Acute Renal Failure, Other (See Below) Other Genitourinary History: CKD Musculoskeletal History: Reports: Osteoarthritis, Other (See Below) Other Musculoskeletal History: Carpal tunnel Neurological History: Reports: Headaches, Chronic, Vertigo Psychiatric History: Reports: None Endocrine/Metabolic History: Reports: Obesity/BMI 30+, Other (See Below) Other Endocrine/Metabolic History: Hyperglycemia Hematologic History: Reports: None Immunologic History: Reports: None Oncologic (Cancer) History: Reports: None Dermatologic History: Reports: Other (See Below) Other Dermatologic History: Pigmented skin lesion. Lipoma - Infectious Disease History Infectious Disease History: Reports: Meningitis - Past Surgical History HEENT Surgical History: Reports: None Cardiovascular Surgical History: Reports: None Respiratory Surgical History: Reports: None GI Surgical History: Reports: Colonoscopy Male Surgical History: Reports: None Endocrine Surgical History: Reports: None Neurological Surgical History: Reports: None Musculoskeletal Surgical History: Reports: Carpal Tunnel, Hip Replacement, Knee Replacement Oncologic Surgical History: Reports: None Dermatological Surgical History: Reports: None Social & Family History - Family History Family Medical History: Noncontributory Cardiac: Reports: Heart Failure Neurological: Reports: CVA Endocrine/Metabolic: Reports: Diabetes, type II Oncologic: Reports: Colon - Caffeine Use Caffeine Use: Reports: Coffee - Living Situation & Occupation Living situation: Reports: , with Significant Other Occupation: Retired ED ROS GENERAL - Review of Systems Review Of Systems: Comprehensive ROS is negative, except as noted in HPI. ED EXAM, GENERAL - Physical Exam Exam: See Below Exam Limited By: No Limitations General Appearance: Alert, WD/WN, No Apparent Distress Eye Exam: Bilateral Eye: EOMI, PERRL Ears: Normal External Exam, Normal TMs Nose: Normal Inspection, Normal Mucosa Throat/Mouth: Normal Inspection, Normal Lips, Normal Teeth, Normal Oropharynx, Normal Voice Head: Atraumatic, Normocephalic Neck: Normal Inspection, Supple, Non-Tender, Full Range of Motion Respiratory/Chest: No Respiratory Distress (He is mildly tachypneic although appears in no respiratory distress. He is able to speak in full sentences.), Lungs Clear, No Accessory Muscle Use, Crackles (He has fine inspiratory opening crackles bilaterally without any expiratory or inspiratory crackles. ). No: Respiratory Distress, Accessory Muscle Use Cardiovascular: Normal Peripheral Pulses, Regular Rate, Rhythm Peripheral Pulses: 2+: Radial (L), Radial (R), Posterior Tibial (L), Posterior Tibial (R), Dorsalis Pedis (L), Dorsalis Pedis (R) GI/Abdominal: Normal Bowel Sounds, Soft, Non-Tender (Male) Exam: Deferred Rectal (Males) Exam: Deferred Back Exam: Normal Inspection, Full Range of Motion Extremities: Normal Inspection, Normal Range of Motion, Pedal Edema (2+ pitting bilaterally. ) Neurological: Alert, Oriented, Normal Cognition, No Motor/Sensory Deficits, Sensory/Motor Deficit Psychiatric: Normal Affect Skin Exam: Warm, Dry, Intact, Normal Color, No Rash #1 Interpretation EKG Date: 05/03/20 Time: 16:56 Rhythm: NSR Rate (Beats/Min): 61 [place]: Normal P-Wave: Present QRS: Normal ST-T: Normal QT: Normal Course - Vital Signs Last Recorded V/S: Last Vital Signs Temp 98.7 F 05/02/20 22:00 Pulse 65 05/02/20 22:00 Resp 20 05/02/20 22:00 BP 136/75 05/02/20 20:11 Pulse Ox 96 05/02/20 22:00 - Orders/Labs/Meds Orders: Active Orders 24 hr Category Date Time Status Cardiac Monitoring [RC] 06,10,14,18,22,02 Care 05/02/20 16:22 Active EKG Documentation Completion [RC] STAT Care 05/02/20 16:23 Active CULTURE BLOOD [BC] Stat Lab 05/02/20 16:55 Received CULTURE BLOOD [BC] Stat Lab 05/02/20 17:54 Received PROCALCITONIN [REF] Stat Lab 05/02/20 16:55 Received Lactated Ringers [Ringers, Lactated] 1,000 ml Med 05/02/20 16:45 Active IV ASDIRECTED Sodium Chloride 0.9% [Saline Flush] Med 05/02/20 16:22 Active 10 ml FLUSH ASDIRECTED PRN Blood Culture x2 Reflex Set [OM.PC] Stat Oth 05/02/20 16:25 Ordered Isolation [COMM] Stat Oth 05/02/20 16:22 Ordered Peripheral IV Insertion Adult [OM.PC] Routine Oth 05/02/20 16:22 Ordered Medication Orders Aspirin (Halfprin) 81 mg PO BEDTIME MELODIE Last Admin: 05/02/20 23:48 Dose: Not Given Documented by: ALPHONSO Calcium Carbonate (Calcium Carbonate/Vitamin D 1250 Mg-200 Unit) 1 tab PO DAILY MELODIE Furosemide (Lasix) 40 mg IV BIDDIURETIC MELODIE Lactated Ringer's (Ringers, Lactated) 1,000 mls @ 100 mls/hr IV ASDIRECTED MELODIE Last Admin: 05/02/20 19:20 Dose: 100 mls/hr Documented by: Infusion: 05/02/20 19:20 Dose: 100 mls/hr Documented by: Admin: 05/02/20 19:13 Dose: 100 mls/hr Documented by: ANDRES Metoprolol Succinate (Toprol Xl) 12.5 mg PO DAILY MELODIE Multivitamins/Minerals (Thera M Plus) 1 tab PO DAILY MELODIE Potassium Chloride (Klor-Con M20) 20 meq PO DAILY MELODIE Simvastatin (Zocor) 10 mg PO DAILY MELDOIE Sodium Chloride (Saline Flush) 10 ml FLUSH ASDIRECTED PRN PRN Reason: Keep Vein Open Last Admin: 05/02/20 20:08 Dose: 10 ml Documented by: ALPHONSO Tramadol HCl (Ultram) 50 mg PO Q6H PRN PRN Reason: Pain Labs: Laboratory Tests 05/02/20 05/02/20 05/02/20 Range/Units 16:55 16:55 16:55 WBC (4.0-10.0) x10^3/uL RBC (4.5-6.0) x10^6/uL Hgb (14.0-18.0) g/dL Hct (40.0-52.0) % MCV (78.0-93.0) fL MCH (26.0-32.0) pg MCHC (32.0-36.0) g/dL RDW Coeff of Barbara (10.0-15.0) % Plt Count (130-400) x10^3/uL Add Manual Diff Neutrophils % (Manual) (50-80) % Band Neutrophils % (0-6) % Lymphocytes % (Manual) (25-50) % Monocytes % (Manual) (2-11) % Eosinophils % (Manual) (0-4) % Metamyelocytes % (0) % Platelet Estimate Anisocytosis Jd Cells PT 12.9 H (9.5-12.3) SEC INR 1.2 L (2.0-3.5) APTT 29.8 (25.6-32.8) SEC D-Dimer, Quantitative (<=0.58) mg/LFEU VBG pH 7.35 (7.31-7.41) VBG pCO2 55 H (41-51) mmHG VBG pO2 36 mmHG VBG HCO3 30 H (23-28) mmol/L VBG O2 Saturation 64 % FiO2 0.21 Sodium (136-145) mmol/L Potassium (3.5-5.1) mmol/L Chloride (98-107) mmol/L Carbon Dioxide (21-32) mmol/L Anion Gap (10-20) mmol/L BUN (7-18) mg/dL Creatinine (0.70-1.30) mg/dL Est Cr Clr Drug Dosing Estimated GFR (MDRD) Glucose (74-106) mg/dL Lactic Acid (0.4-2.0) mmol/L Calcium (8.5-10.1) mg/dL Corrected Calcium (8.5-10.1) mg/dL Ferritin 483 H (26-388) ng/mL Total Bilirubin (0.2-1.0) mg/dL AST (15-37) U/L ALT (16-63) U/L Alkaline Phosphatase (46-116) U/L Lactate Dehydrogenase (85-227) U/L Troponin I (<=0.056) ng/mL C-Reactive Protein (<=0.9) mg/dL NT-Pro-B Natriuret Pep (<=450) pg/mL Total Protein (6.4-8.2) g/dL Albumin (3.4-5.0) g/dL Globulin Albumin/Globulin Ratio 05/02/20 05/02/20 05/02/20 Range/Units 16:55 16:55 16:55 WBC 5.3 (4.0-10.0) x10^3/uL RBC 4.33 L (4.5-6.0) x10^6/uL Hgb 13.4 L (14.0-18.0) g/dL Hct 39.0 L (40.0-52.0) % MCV 90.1 (78.0-93.0) fL MCH 30.9 (26.0-32.0) pg MCHC 34.4 (32.0-36.0) g/dL RDW Coeff of Barbara 14.9 (10.0-15.0) % Plt Count 156 (130-400) x10^3/uL Add Manual Diff Yes Neutrophils % (Manual) 76 (50-80) % Band Neutrophils % 4 (0-6) % Lymphocytes % (Manual) 9 L (25-50) % Monocytes % (Manual) 8 (2-11) % Eosinophils % (Manual) 2 (0-4) % Metamyelocytes % 1 H (0) % Platelet Estimate Adequate Anisocytosis 3+ marked H [place] Cells 2+ moderate H PT (9.5-12.3) SEC INR (2.0-3.5) APTT (25.6-32.8) SEC D-Dimer, Quantitative 1.03 H (<=0.58) mg/LFEU VBG pH (7.31-7.41) VBG pCO2 (41-51) mmHG VBG pO2 mmHG VBG HCO3 (23-28) mmol/L VBG O2 Saturation % FiO2 Sodium (136-145) mmol/L Potassium (3.5-5.1) mmol/L Chloride (98-107) mmol/L Carbon Dioxide (21-32) mmol/L Anion Gap (10-20) mmol/L BUN (7-18) mg/dL Creatinine (0.70-1.30) mg/dL Est Cr Clr Drug Dosing Estimated GFR (MDRD) Glucose (74-106) mg/dL Lactic Acid (0.4-2.0) mmol/L Calcium (8.5-10.1) mg/dL Corrected Calcium (8.5-10.1) mg/dL Ferritin (26-388) ng/mL Total Bilirubin (0.2-1.0) mg/dL AST (15-37) U/L ALT (16-63) U/L Alkaline Phosphatase (46-116) U/L Lactate Dehydrogenase 321 H (85-227) U/L Troponin I 0.069 H* (<=0.056) ng/mL C-Reactive Protein 10.2 H (<=0.9) mg/dL NT-Pro-B Natriuret Pep (<=450) pg/mL Total Protein (6.4-8.2) g/dL Albumin (3.4-5.0) g/dL Globulin Albumin/Globulin Ratio 05/02/20 05/02/20 05/02/20 Range/Units 16:55 16:55 16:55 WBC (4.0-10.0) x10^3/uL RBC (4.5-6.0) x10^6/uL Hgb (14.0-18.0) g/dL Hct (40.0-52.0) % MCV (78.0-93.0) fL MCH (26.0-32.0) pg MCHC (32.0-36.0) g/dL RDW Coeff of Barbara (10.0-15.0) % Plt Count (130-400) x10^3/uL Add Manual Diff Neutrophils % (Manual) (50-80) % Band Neutrophils % (0-6) % Lymphocytes % (Manual) (25-50) % Monocytes % (Manual) (2-11) % Eosinophils % (Manual) (0-4) % Metamyelocytes % (0) % Platelet Estimate Anisocytosis Jd Cells PT (9.5-12.3) SEC INR (2.0-3.5) APTT (25.6-32.8) SEC D-Dimer, Quantitative (<=0.58) mg/LFEU VBG pH (7.31-7.41) VBG pCO2 (41-51) mmHG VBG pO2 mmHG VBG HCO3 (23-28) mmol/L VBG O2 Saturation % FiO2 Sodium 131 L (136-145) mmol/L Potassium 4.1 (3.5-5.1) mmol/L Chloride 94 L (98-107) mmol/L Carbon Dioxide 28 (21-32) mmol/L Anion Gap 13.1 (10-20) mmol/L BUN 18 (7-18) mg/dL Creatinine 1.5 H (0.70-1.30) mg/dL Est Cr Clr Drug Dosing TNP Estimated GFR (MDRD) 45 Glucose 91 (74-106) mg/dL Lactic Acid 1.6 (0.4-2.0) mmol/L Calcium 8.5 (8.5-10.1) mg/dL Corrected Calcium 9.06 (8.5-10.1) mg/dL Ferritin (26-388) ng/mL Total Bilirubin 2.1 H (0.2-1.0) mg/dL AST 39 H (15-37) U/L ALT 35 (16-63) U/L Alkaline Phosphatase 135 H (46-116) U/L Lactate Dehydrogenase (85-227) U/L Troponin I (<=0.056) ng/mL C-Reactive Protein (<=0.9) mg/dL NT-Pro-B Natriuret Pep 9575 H (<=450) pg/mL Total Protein 6.8 (6.4-8.2) g/dL Albumin 3.3 L (3.4-5.0) g/dL Globulin 3.5 Albumin/Globulin Ratio 0.94 Meds: Medications Generic Name Dose Route Start Last Admin Trade Name Chad PRN Reason Stop Dose Admin Aspirin 81 mg 05/02/20 20:00 05/02/20 23:48 Halfprin PO Not Given BEDTIME MELODIE Calcium Carbonate 1 tab 05/03/20 08:00 Calcium Carbonate/Vitamin D 1250 Mg-200 Unit PO DAILY [facility] Furosemide 40 mg 05/03/20 08:00 Lasix IV BIDDIURETIC [facility] Lactated Ringer's 1,000 mls @ 100 mls/hr 05/02/20 16:45 05/02/20 19:20 Ringers, Lactated IV 100 mls/hr ASDIRECTED MELODIE Administration Metoprolol Succinate 12.5 mg 05/03/20 08:00 Toprol Xl PO DAILY [facility] Multivitamins/Minerals 1 tab 05/03/20 08:00 Thera M Plus PO DAILY MELODIE Potassium Chloride 20 meq 05/03/20 08:00 Klor-Con M20 PO DAILY MELODIE Simvastatin 10 mg 05/03/20 08:00 Zocor PO DAILY MELODIE Sodium Chloride 10 ml 05/02/20 16:22 05/02/20 20:08 Saline Flush FLUSH 10 ml ASDIRECTED PRN Administration Keep Vein Open Tramadol HCl 50 mg 05/02/20 19:30 Ultram PO Q6H PRN Pain Discontinued Medications Generic Name Dose Route Start Last Admin Trade Name Freq PRN Reason Stop Dose Admin Furosemide 40 mg 05/02/20 18:24 05/02/20 18:39 Lasix IV 05/02/20 18:25 40 mg ONETIME ONE Administration - Radiology Interpretation Free Text/Narrative:: Chest x-ray per radiology shows cardiomegaly and central vascular congestion. Basal predominant interlobar septal thickening. Subtle [id number] mid and lower lung parenchymal opacities. Correlate for signs of fluid retention as combination of findings can be seen with congestive heart failure resulting in interstitial and parenchymal pulmonary edema. However differential in diagnosis includes pneumonia and COVID-19. - Re-Assessments/Exams Free Text/Narrative Re-Assessment/Exam: 05/03/20 00:11 Labs drawn. Droplet isolation Blood cultures x2. Initially given 250ml bolus of fluid and 100mls/hr EKG NSR without ST elevation or depression when reviewed extemporaneously by myself. Labs. Creatinine 1.5 which is at about the patient's baseline. Ferritin 483, lactate dehydrogenase 321. Troponin 0 0.069. proBNP 9575. CXR with a mix of CHF and opacities for pneumonia vs COVID which is most likely COVID related. Fluids stopped. 40mg of Lasix given IV. Most of the patient's fatigue and shortness of breath is most likely due to the sequelae of the development of congestive heart failure. He has a mild elevation in his troponin and his EKG is unremarkable and his troponin is most likely due to cardiac strain due to the congestive heart failure. He does have a mild bump in his creatinine as well but this could be cardiorenal syndrome. I discussed the findings and the concerns with the patient and his son. I would like to admit him into the hospital for further trending his troponins and gentle diuresis. I spoke with Dr. Grimaldo who is ammonia nitrate operator for consultation and she agrees with the plan at this time and admit observation. Departure - Departure Time of Disposition: 18:30 Disposition: Refer to Observation Clinical Impression: COVID-19, Elevated troponin Acute exacerbation of CHF (congestive heart failure) Qualifiers: Heart failure type: unspecified Qualified Code(s): I50.9 - Heart failure, unspecified CRF (chronic renal failure) Qualifiers: Chronic kidney disease stage: unspecified stage Qualified Code(s): N18.9 - Chronic kidney disease, unspecified - Discharge Information Sepsis Event Note (ED) - Focused Exam Vital Signs: Vital Signs Temp Pulse Resp BP Pulse Ox 05/02/20 18:21 64 16 134/74 95 05/02/20 17:21 62 20 129/74 95 05/02/20 16:25 98.1 F 67 24 H 130/81 98 - Problem List & Annotations (1) CKD (chronic kidney disease) SNOMED Code(s): 159472839 Code(s): N18.9 - CHRONIC KIDNEY DISEASE, UNSPECIFIED Status: Chronic Current Visit: No Qualifiers: Chronic kidney disease stage: stage 3 (moderate) (2) FELIPE (obstructive sleep apnea) SNOMED Code(s): 83854057 Code(s): G47.33 - OBSTRUCTIVE SLEEP APNEA (ADULT) (PEDIATRIC) Status: Chronic Current Visit: No (3) COVID-19 SNOMED Code(s): 341074843 Code(s): U07.1 - COVID-19 Status: Acute Current Visit: Yes (4) Acute exacerbation of CHF (congestive heart failure) SNOMED Code(s): 623484006, 35989001585842 Code(s): I50.9 - HEART FAILURE, UNSPECIFIED Status: Acute Current Visit: Yes Qualifiers: Heart failure type: unspecified Qualified Code(s): I50.9 - Heart failure, unspecified (5) Elevated troponin SNOMED Code(s): 328568412, 489048867, 963333170 Code(s): R77.8 - OTHER SPECIFIED ABNORMALITIES OF PLASMA PROTEINS Status: Acute Current Visit: Yes (6) Weakness SNOMED Code(s): 95830012 Code(s): R53.1 - WEAKNESS Status: Acute Current Visit: Yes - My Orders Last 24 Hours: My Active Orders 05/02/20 16:22 Cardiac Monitoring [RC] 06,10,14,18,22,02 Sodium Chloride 0.9% [Saline Flush] 10 ml FLUSH ASDIRECTED PRN Isolation [COMM] Stat Peripheral IV Insertion Adult [OM.PC] Routine 05/02/20 16:23 EKG Documentation Completion [RC] STAT 05/02/20 16:25 Blood Culture x2 Reflex Set [OM.PC] Stat 05/02/20 16:45 Lactated Ringers [Ringers, Lactated] 1,000 ml IV ASDIRECTED 05/02/20 16:55 CULTURE BLOOD [BC] Stat PROCALCITONIN [REF] Stat 05/02/20 17:54 CULTURE BLOOD [BC] Stat - Assessment/Plan Admission H&P: Please use this note as an admission H&P Last 24 Hours: My Active Orders 05/02/20 16:22 Cardiac Monitoring [RC] 06,10,14,18,22,02 Sodium Chloride 0.9% [Saline Flush] 10 ml FLUSH ASDIRECTED PRN Isolation [COMM] Stat Peripheral IV Insertion Adult [OM.PC] Routine 05/02/20 16:23 EKG Documentation Completion [RC] STAT 05/02/20 16:25 Blood Culture x2 Reflex Set [OM.PC] Stat 05/02/20 16:45 Lactated Ringers [Ringers, Lactated] 1,000 ml IV ASDIRECTED 05/02/20 16:55 CULTURE BLOOD [BC] Stat PROCALCITONIN [REF] Stat 05/02/20 17:54 CULTURE BLOOD [BC] Stat Assessment:: A/P Admit Observation under my service. Care will be transferred to Adams Maradiaga PA-C in the morning. 1. Acute exacerbation of CHF. We will increase his lasix from 40mg po daily to 40mg IVP bid. With his CKD we will have to diurese him slowly. He received one dose in the ED of 40mg prior to admission. Daily weights. Heart healthy diet. Cardiac monitoring had some periods of bigeminy in the ED which is most likely from the CHF. Not requiring oxygen at this time. Pro-BNP 5k. 2. Elevated troponin. Most likely from the sequelae of CHF. Trop 0.069 does have a history of CKD as well. Will trend troponins during the night every 4 hours. 3. COVID-19 previous diagnosis. Most likely the stress that put him into CHF. Isolation in reverse pressure room. No need for remdisivir or dexamethasone at this time as he is not requiring oxygen. Mild elevation of Ferritin and LDH will repeat in the morning for trending. 4. CKD-3. Creat 1.6 up from a few weeks ago from 1.5. Will hold IV fluids at this time. Daily labs. \ 5. Generalized weakness. Most likely due to #1, and #3. PT eval. Up with assist. 6. FELIPE will bring his home CPAP machine. VTE-Short stay, SCDs Sepsis, NO signs of bacterial infection at this time. No needed for anti- biotics. Blood cultures pending. Lactic Negative. Will follow with labs. CODE LEVEL- DNR/DNI discussed with the patient in the ED at this time. We will see how much he improves over the next 24 hours. With his weakness and his chronicity I have concerns for a quick recovery. But we will monitor closely and reassess.
--- NOTE | 2020-05-02 17:29 | CR ---
[id number] RAD/RAD Chest PA or AP 1V EXAM: RAD Chest PA or AP 1V INDICATION: RESPIRATORY FAILURE. COMPARISON: April 25, 2020. DISCUSSION: Cardiomegaly and central vascular congestion. Basal predominant interlobular septal thickening. Additionally there are subtle nonmass-like mid and lower lung parenchymal opacities. Correlate for signs of fluid retention, as combination of findings can be seen with congestive heart failure exacerbation resulting in interstitial and parenchymal pulmonary edema. However, differential diagnosis includes pneumonia (including sequela of Covid 19). IMPRESSION: As above. Adrian Rivera MD 05/02/20 2971 Thank you for allowing us to participate in the care of your patient.
[2020-05-02 17:34] LABS: PTT,PARTIAL THROMBOPLSTIN TIME 29.8 SEC (25.6-32.8)
[2020-05-02] MEDS ORDERED: Furosemide 40 MG/4 ML VIAL IV ONE (18:24)
[2020-05-02 18:28] LABS: CHLORIDE,CL 94 mmol/L (98-107); SODIUM,NA 131 mmol/L (136-145)
[2020-05-02 18:30] LABS: ANION GAP 13.1 mmol/L (10-20)
[2020-05-02] MEDS: Lactated Ringers 1,000 ML IV SCH ×2 (19:13→19:20)
[2020-05-02] MEDS ORDERED: traMADol 50 MG Tab PO PRN (19:30)
[2020-05-02] MEDS: Sodium Chloride 0.9% 10 ML Syringe FLUSH PRN (20:08)
[2020-05-02] MEDS: Aspirin 81 MG Tab.EC PO SCH (23:48)
[2020-05-03] MEDS ORDERED: Albuterol HFA 18 Gm Inhaler INH PRN (00:28)
[2020-05-03] MEDS: Potassium Chloride 20 MEQ Tab.ER PO SCH (08:07)
[2020-05-03] MEDS: Metoprolol Succinate 25 MG Tab.ER PO SCH (08:07)
[2020-05-03] MEDS: Simvastatin 10 MG Tab PO SCH (08:07)
[2020-05-03] MEDS: Calcium Carbonate/Vitamin D3 1250 MG-200 Unit Tab PO SCH (08:08)
[2020-05-03] MEDS: Multivitamins with Iron/Calcium/Folic Acid/Minerals Tab PO SCH (08:09)
[2020-05-03] MEDS: Furosemide 40 MG/4 ML VIAL IV SCH ×2 (08:09→16:15)
[2020-05-03 08:42] LABS: ANION GAP 11.8 mmol/L (10-20)
--- NOTE | 2020-05-03 09:47 | PCM.PN ---
- General Info Date of Service: 05/03/20 Subjective Update: Pt. was admitted yesterday afternoon with weakness, positive covid 19, MARNI, and CHF. At that time, he head a positive troponin at 0.69. This was trended, and was at 0.1 this AM. He denies any chest pain. Pt. states that his shortness of breath is somewhat improved this AM. His lasix was increased from 40mg daily to 80mg daily. He is on fluid restriction/cardiac diet. Pt. continues to be quite weak. He complains of fatigue but has been able to ambulate to the bathroom with assistance. His diet has been about average. He states that he does not feel like eating much. Pt. did have an elevated d dimer on admission as well. This was trended, and went up tp 1.03 to 1.09. Again, he denies any significant dyspnea, chest pain (pleuritic or otherwise), hemoptysis, or other signs of PE. Functional Status: Reports: Pain Controlled - Review of Systems General: Reports: No Symptoms, Weakness, Fatigue HEENT: Reports: No Symptoms Pulmonary: Reports: Shortness of Breath Cardiovascular: Reports: No Symptoms Gastrointestinal: Reports: No Symptoms Genitourinary: Reports: No Symptoms Musculoskeletal: Reports: No Symptoms Skin: Reports: No Symptoms Neurological: Reports: No Symptoms Psychiatric: Reports: No Symptoms - Patient Data Vitals - Most Recent: Last Vital Signs Temp 36.3 C 05/03/20 06:46 Pulse 61 05/03/20 08:07 Resp 16 05/03/20 06:46 BP 108/51 L 05/03/20 08:07 Pulse Ox 92 L 05/03/20 06:46 Weight - Most Recent: 96.162 kg I&O - Last 24 Hours: Intake & Output 05/02/20 05/03/20 05/03/20 22:59 06:59 14:59 Intake Total 185 Output Total 825 550 Balance -825 -365 Lab Results Last 24 Hours: Laboratory Results - last 24 hr 05/02/20 05/02/20 05/02/20 Range/Units 16:55 16:55 16:55 WBC (4.0-10.0) x10^3/uL RBC (4.5-6.0) x10^6/uL Hgb (14.0-18.0) g/dL Hct (40.0-52.0) % MCV (78.0-93.0) fL MCH (26.0-32.0) pg MCHC (32.0-36.0) g/dL RDW Coeff of Brabara (10.0-15.0) % Plt Count (130-400) x10^3/uL Add Manual Diff Neutrophils % (Manual) (50-80) % Band Neutrophils % (0-6) % Lymphocytes % (Manual) (25-50) % Monocytes % (Manual) (2-11) % Eosinophils % (Manual) (0-4) % Metamyelocytes % (0) % Platelet Estimate Anisocytosis Ferney Cells PT 12.9 H (9.5-12.3) SEC INR 1.2 L (2.0-3.5) APTT 29.8 (25.6-32.8) SEC D-Dimer, Quantitative (<=0.58) mg/LFEU VBG pH 7.35 (7.31-7.41) VBG pCO2 55 H (41-51) mmHG VBG pO2 36 mmHG VBG HCO3 30 H (23-28) mmol/L VBG O2 Saturation 64 % FiO2 0.21 Sodium (136-145) mmol/L Potassium (3.5-5.1) mmol/L Chloride (98-107) mmol/L Carbon Dioxide (21-32) mmol/L Anion Gap (10-20) mmol/L BUN (7-18) mg/dL Creatinine (0.70-1.30) mg/dL Est Cr Clr Drug Dosing Estimated GFR (MDRD) Glucose (74-106) mg/dL Lactic Acid (0.4-2.0) mmol/L Calcium (8.5-10.1) mg/dL Corrected Calcium (8.5-10.1) mg/dL Ferritin 483 H (26-388) ng/mL Total Bilirubin (0.2-1.0) mg/dL AST (15-37) U/L ALT (16-63) U/L Alkaline Phosphatase (46-116) U/L Lactate Dehydrogenase (85-227) U/L Troponin I (<=0.056) ng/mL C-Reactive Protein (<=0.9) mg/dL NT-Pro-B Natriuret Pep (<=450) pg/mL Total Protein (6.4-8.2) g/dL Albumin (3.4-5.0) g/dL Globulin Albumin/Globulin Ratio 05/02/20 05/02/20 05/02/20 Range/Units 16:55 16:55 16:55 WBC 5.3 (4.0-10.0) x10^3/uL RBC 4.33 L (4.5-6.0) x10^6/uL Hgb 13.4 L (14.0-18.0) g/dL Hct 39.0 L (40.0-52.0) % MCV 90.1 (78.0-93.0) fL MCH 30.9 (26.0-32.0) pg MCHC 34.4 (32.0-36.0) g/dL RDW Coeff of Barbara 14.9 (10.0-15.0) % Plt Count 156 (130-400) x10^3/uL Add Manual Diff Yes Neutrophils % (Manual) 76 (50-80) % Band Neutrophils % 4 (0-6) % Lymphocytes % (Manual) 9 L (25-50) % Monocytes % (Manual) 8 (2-11) % Eosinophils % (Manual) 2 (0-4) % Metamyelocytes % 1 H (0) % Platelet Estimate Adequate Anisocytosis 3+ marked H Ferney Cells 2+ moderate H PT (9.5-12.3) SEC INR (2.0-3.5) APTT (25.6-32.8) SEC D-Dimer, Quantitative 1.03 H (<=0.58) mg/LFEU VBG pH (7.31-7.41) VBG pCO2 (41-51) mmHG VBG pO2 mmHG VBG HCO3 (23-28) mmol/L VBG O2 Saturation % FiO2 Sodium (136-145) mmol/L Potassium (3.5-5.1) mmol/L Chloride (98-107) mmol/L Carbon Dioxide (21-32) mmol/L Anion Gap (10-20) mmol/L BUN (7-18) mg/dL Creatinine (0.70-1.30) mg/dL Est Cr Clr Drug Dosing Estimated GFR (MDRD) Glucose (74-106) mg/dL Lactic Acid (0.4-2.0) mmol/L Calcium (8.5-10.1) mg/dL Corrected Calcium (8.5-10.1) mg/dL Ferritin (26-388) ng/mL Total Bilirubin (0.2-1.0) mg/dL AST (15-37) U/L ALT (16-63) U/L Alkaline Phosphatase (46-116) U/L Lactate Dehydrogenase 321 H (85-227) U/L Troponin I 0.069 H* (<=0.056) ng/mL C-Reactive Protein 10.2 H (<=0.9) mg/dL NT-Pro-B Natriuret Pep (<=450) pg/mL Total Protein (6.4-8.2) g/dL Albumin (3.4-5.0) g/dL Globulin Albumin/Globulin Ratio 05/02/20 05/02/20 05/02/20 Range/Units 16:55 16:55 16:55 WBC (4.0-10.0) x10^3/uL RBC (4.5-6.0) x10^6/uL Hgb (14.0-18.0) g/dL Hct (40.0-52.0) % MCV (78.0-93.0) fL MCH (26.0-32.0) pg MCHC (32.0-36.0) g/dL RDW Coeff of Barbara (10.0-15.0) % Plt Count (130-400) x10^3/uL Add Manual Diff Neutrophils % (Manual) (50-80) % Band Neutrophils % (0-6) % Lymphocytes % (Manual) (25-50) % Monocytes % (Manual) (2-11) % Eosinophils % (Manual) (0-4) % Metamyelocytes % (0) % Platelet Estimate Anisocytosis Jd Cells PT (9.5-12.3) SEC INR (2.0-3.5) APTT (25.6-32.8) SEC D-Dimer, Quantitative (<=0.58) mg/LFEU VBG pH (7.31-7.41) VBG pCO2 (41-51) mmHG VBG pO2 mmHG VBG HCO3 (23-28) mmol/L VBG O2 Saturation % FiO2 Sodium 131 L (136-145) mmol/L Potassium 4.1 (3.5-5.1) mmol/L Chloride 94 L (98-107) mmol/L Carbon Dioxide 28 (21-32) mmol/L Anion Gap 13.1 (10-20) mmol/L BUN 18 (7-18) mg/dL Creatinine 1.5 H (0.70-1.30) mg/dL Est Cr Clr Drug Dosing TNP Estimated GFR (MDRD) 45 Glucose 91 (74-106) mg/dL Lactic Acid 1.6 (0.4-2.0) mmol/L Calcium 8.5 (8.5-10.1) mg/dL Corrected Calcium 9.06 (8.5-10.1) mg/dL Ferritin (26-388) ng/mL Total Bilirubin 2.1 H (0.2-1.0) mg/dL AST 39 H (15-37) U/L ALT 35 (16-63) U/L Alkaline Phosphatase 135 H (46-116) U/L Lactate Dehydrogenase (85-227) U/L Troponin I (<=0.056) ng/mL C-Reactive Protein (<=0.9) mg/dL NT-Pro-B Natriuret Pep 9575 H (<=450) pg/mL Total Protein 6.8 (6.4-8.2) g/dL Albumin 3.3 L (3.4-5.0) g/dL Globulin 3.5 Albumin/Globulin Ratio 0.94 05/02/20 05/03/20 05/03/20 Range/Units 22:08 07:37 07:37 WBC 5.0 (4.0-10.0) x10^3/uL RBC 3.96 L (4.5-6.0) x10^6/uL Hgb 12.0 L (14.0-18.0) g/dL Hct 35.5 L (40.0-52.0) % MCV 89.6 (78.0-93.0) fL MCH 30.3 (26.0-32.0) pg MCHC 33.8 (32.0-36.0) g/dL RDW Coeff of Barbara 14.9 (10.0-15.0) % Plt Count 146 (130-400) x10^3/uL Add Manual Diff Neutrophils % (Manual) (50-80) % Band Neutrophils % (0-6) % Lymphocytes % (Manual) (25-50) % Monocytes % (Manual) (2-11) % Eosinophils % (Manual) (0-4) % Metamyelocytes % (0) % Platelet Estimate Anisocytosis Ferney Cells PT (9.5-12.3) SEC INR (2.0-3.5) APTT (25.6-32.8) SEC D-Dimer, Quantitative (<=0.58) mg/LFEU VBG pH (7.31-7.41) VBG pCO2 (41-51) mmHG VBG pO2 mmHG VBG HCO3 (23-28) mmol/L VBG O2 Saturation % FiO2 Sodium 133 L (136-145) mmol/L Potassium 3.8 (3.5-5.1) mmol/L Chloride 96 L (98-107) mmol/L Carbon Dioxide 29 (21-32) mmol/L Anion Gap 11.8 (10-20) mmol/L BUN 20 H (7-18) mg/dL Creatinine 1.5 H (0.70-1.30) mg/dL Est Cr Clr Drug Dosing 38.59 Estimated GFR (MDRD) 45 Glucose 88 (74-106) mg/dL Lactic Acid (0.4-2.0) mmol/L Calcium 8.1 L (8.5-10.1) mg/dL Corrected Calcium 9.06 (8.5-10.1) mg/dL Ferritin (26-388) ng/mL Total Bilirubin 2.1 H (0.2-1.0) mg/dL AST 34 (15-37) U/L ALT 29 (16-63) U/L Alkaline Phosphatase 115 (46-116) U/L Lactate Dehydrogenase 271 H (85-227) U/L Troponin I 0.076 H* 0.100 H* (<=0.056) ng/mL C-Reactive Protein 10.2 H (<=0.9) mg/dL NT-Pro-B Natriuret Pep (<=450) pg/mL Total Protein 5.8 L (6.4-8.2) g/dL Albumin 2.8 L (3.4-5.0) g/dL Globulin 3.0 Albumin/Globulin Ratio 0.93 1005/03/20 Range/Units 07:37 08:35 WBC (4.0-10.0) x10^3/uL RBC (4.5-6.0) x10^6/uL Hgb (14.0-18.0) g/dL Hct (40.0-52.0) % MCV (78.0-93.0) fL MCH (26.0-32.0) pg MCHC (32.0-36.0) g/dL RDW Coeff of Barbara (10.0-15.0) % Plt Count (130-400) x10^3/uL Add Manual Diff Neutrophils % (Manual) (50-80) % Band Neutrophils % (0-6) % Lymphocytes % (Manual) (25-50) % Monocytes % (Manual) (2-11) % Eosinophils % (Manual) (0-4) % Metamyelocytes % (0) % Platelet Estimate Anisocytosis Ferney Cells PT (9.5-12.3) SEC INR (2.0-3.5) APTT (25.6-32.8) SEC D-Dimer, Quantitative 1.09 H (<=0.58) mg/LFEU VBG pH (7.31-7.41) VBG pCO2 (41-51) mmHG VBG pO2 mmHG VBG HCO3 (23-28) mmol/L VBG O2 Saturation % FiO2 Sodium (136-145) mmol/L Potassium (3.5-5.1) mmol/L Chloride (98-107) mmol/L Carbon Dioxide (21-32) mmol/L Anion Gap (10-20) mmol/L BUN (7-18) mg/dL Creatinine (0.70-1.30) mg/dL Est Cr Clr Drug Dosing Estimated GFR (MDRD) Glucose (74-106) mg/dL Lactic Acid (0.4-2.0) mmol/L Calcium (8.5-10.1) mg/dL Corrected Calcium (8.5-10.1) mg/dL Ferritin 462 H (26-388) ng/mL Total Bilirubin (0.2-1.0) mg/dL AST (15-37) U/L ALT (16-63) U/L Alkaline Phosphatase (46-116) U/L Lactate Dehydrogenase (85-227) U/L Troponin I (<=0.056) ng/mL C-Reactive Protein (<=0.9) mg/dL NT-Pro-B Natriuret Pep (<=450) pg/mL Total Protein (6.4-8.2) g/dL Albumin (3.4-5.0) g/dL Globulin Albumin/Globulin Ratio Med Orders - Current: Current Medications Albuterol (Ventolin Hfa) 0 gm INH Q4H PRN PRN Reason: Shortness of Breath Aspirin (Halfprin) 81 mg PO BEDTIME [facility] Last Admin: 05/02/20 23:48 Dose: Not Given Documented by: Calcium Carbonate (Calcium Carbonate/Vitamin D 1250 Mg-200 Unit) 1 tab PO DAILY [facility] Last Admin: 05/03/20 08:08 Dose: 1 tab Documented by: Furosemide (Lasix) 40 mg IV BIDDIURETIC [facility] Last Admin: 05/03/20 08:09 Dose: 40 mg Documented by: Lactated Ringer's (Ringers, Lactated) 1,000 mls @ 100 mls/hr IV ASDIRECTED [facility] Last Admin: 05/02/20 19:20 Dose: 100 mls/hr Documented by: Metoprolol Succinate (Toprol Xl) 12.5 mg PO DAILY [facility] Last Admin: 05/03/20 08:07 Dose: 12.5 mg Documented by: Multivitamins/Minerals (Thera M Plus) 1 tab PO DAILY [facility] Last Admin: 05/03/20 08:09 Dose: 1 tab Documented by: Potassium Chloride (Klor-Con M20) 20 meq PO DAILY [facility] Last Admin: 05/03/20 08:07 Dose: 20 meq Documented by: Simvastatin (Zocor) 10 mg PO DAILY [facility] Last Admin: 05/03/20 08:07 Dose: 10 mg Documented by: Sodium Chloride (Saline Flush) 10 ml FLUSH ASDIRECTED PRN PRN Reason: Keep Vein Open Last Admin: 05/02/20 20:08 Dose: 10 ml Documented by: Tramadol HCl (Ultram) 50 mg PO Q6H PRN PRN Reason: Pain Discontinued Medications Furosemide (Lasix) 40 mg IV ONETIME ONE Stop: 05/02/20 18:25 Last Admin: 05/02/20 18:39 Dose: 40 mg Documented by: - Exam General: Alert, Oriented HEENT: Pupils Equal, EOMI Neck: Supple Lungs: Clear to Auscultation, Normal Respiratory Effort Cardiovascular: Regular Rate, Regular Rhythm, Other (Peripheral edema, improved from yesterday.) GI/Abdominal Exam: Soft, No Distention, No Mass (Male) Exam: Deferred Back Exam: Normal Inspection, Full Range of Motion Extremities: Normal Inspection, Normal Range of Motion, Non-Tender, Pedal Edema Peripheral Pulses: 4+: Radial (R) Skin: Warm, Dry Neurological: No New Focal Deficit Psy/Mental Status: Alert, Normal Affect, Normal Mood Sepsis Event Note - Evaluation Sepsis Screening Result: No Definite Risk - Focused Exam Vital Signs: Vital Signs Temp Pulse Pulse Resp BP BP Pulse Ox 05/03/20 08:07 61 108/51 L 05/03/20 06:46 36.3 C 61 16 108/51 L 92 L 05/03/20 02:00 37.1 C 65 22 H 118/54 L 94 L 05/02/20 22:00 37.1 C 65 20 96 - Problem List Review Problem List Initiated/Reviewed/Updated: Yes - Plan Plan:: Discussed transitioning patient to acute states with Hanane Grimaldo MD. She feels we should keep him observation at this point and reevaluate the patient tomorrow. Pt. is quite weak and likely will require transition to acute status tomorrow. Will trend troponin I and d dimer this evening. If the patient was having an NSTEMI, I would expect his troponin to be higher. His EKG was repeated this AM, and showed no evidence of acute ischemia. Troponin elevation likely secondary to MARNI. His d dimer is only mildly elevated, so this will also be trended. Risks of administering IV contrast outweigh benefits at this time, due this his decreased renal function. Will reevalulate d dimer and perform CTA if there is a significant increase in d dimer.
[2020-05-03] MEDS: Sodium Chloride 0.9% 10 ML Syringe FLUSH PRN ×2 (16:15→20:45)
[2020-05-03] MEDS ORDERED: Acetaminophen 325 MG Tab PO PRN (20:11)
[2020-05-03] MEDS: Aspirin 81 MG Tab.EC PO SCH (20:45)
[2020-05-04 08:10] LABS: ANION GAP 7.5 mmol/L (10-20)
[2020-05-04] MEDS: Potassium Chloride 20 MEQ Tab.ER PO SCH (08:53)
[2020-05-04] MEDS: Multivitamins with Iron/Calcium/Folic Acid/Minerals Tab PO SCH (08:53)
[2020-05-04] MEDS: Calcium Carbonate/Vitamin D3 1250 MG-200 Unit Tab PO SCH (08:53)
[2020-05-04] MEDS: Metoprolol Succinate 25 MG Tab.ER PO SCH (08:53)
[2020-05-04] MEDS: Simvastatin 10 MG Tab PO SCH (08:54)
[2020-05-04] MEDS: Furosemide 40 MG/4 ML VIAL IV SCH (08:54)
[2020-05-04 08:55] VITALS: PULSE 68
[2020-05-04 09:34] VITALS: BP 133/66
--- NOTE | 2020-05-04 10:17 | PCM.HP.2 ---
H&P History of Present Illness - General Date of Service: 05/04/20 Admit Problem/Dx: 1)COVID+ 2)Elevated Troponin 3)Weakness 4)Exacerbation CHF 5)CKD Stage 3 - History of Present Illness Initial Comments - Free Text/Narative: Nino reports he's feeling slightly better than her felt on Monday. His appetite is still mediocre. He is able to get up to the bathroom. Seen by PT this AM. He is still having some cough, but is not SOB. - Related Data Allergies/Adverse Reactions: Allergies Allergy/AdvReac Type Severity Reaction Status Date / Time No Known Allergies Allergy Verified 06/14/19 19:12 Home Medications: Home Meds Simvastatin 10 mg PO DAILY 03/22/16 [History] Aspirin [Halfprin] 81 mg PO BEDTIME 11/09/18 [History] Calcium Citrate/Vitamin D3 [Calcium Citrate - Vit D Tablet] 1 each PO DAILY 11/09/18 [History] Metoprolol Succinate 12.5 mg PO DAILY 11/09/18 [History] Multivitamin [Multi-Day Vitamins] 1 tab PO DAILY 11/09/18 [History] Potassium Chloride 20 meq PO DAILY 11/09/18 [History] Acetaminophen [Pain Reliever] 1,000 mg PO Q4H PRN 04/25/20 [History] Ondansetron [Zofran] 4 mg PO Q6H PRN 04/25/20 [History] traMADol [Ultram] 1 - 2 tab PO Q6H PRN 04/25/20 [History] Albuterol [Ventolin HFA] 1 inh INH Q4H PRN #18 inhaler 05/04/20 [Rx] Furosemide [Lasix] 40 mg IV BIDDIURETIC #60 vial 05/04/20 [Rx] Past Medical History HEENT History: Reports: Hard of Hearing Cardiovascular History: Reports: Heart Failure, High Cholesterol, Pulmonary Hypertension, Other (See Below) Other Cardiovascular History: Cardiomegaly. Mitral valve regurgitation. Abnormal EKG. Hx of chest pain. Bradycardia Respiratory History: Reports: Sleep Apnea, SOB, Other (See Below) Other Respiratory History: Right lung lesion Gastrointestinal History: Reports: Cholelithiasis, Colon Polyp, Other (See Below) Other Gastrointestinal History: Biliary sludge. Peptic Ulcer Genitourinary History: Reports: Acute Renal Failure, Other (See Below) Other Genitourinary History: CKD Musculoskeletal History: Reports: Osteoarthritis, Other (See Below) Other Musculoskeletal History: Carpal tunnel Neurological History: Reports: Headaches, Chronic, Vertigo Psychiatric History: Reports: None Endocrine/Metabolic History: Reports: Obesity/BMI 30+, Other (See Below) Other Endocrine/Metabolic History: Hyperglycemia Hematologic History: Reports: None Immunologic History: Reports: None Oncologic (Cancer) History: Reports: None Dermatologic History: Reports: Other (See Below) Other Dermatologic History: Pigmented skin lesion. Lipoma - Infectious Disease History Infectious Disease History: Reports: Meningitis - Past Surgical History HEENT Surgical History: Reports: None Cardiovascular Surgical History: Reports: None Respiratory Surgical History: Reports: None GI Surgical History: Reports: Colonoscopy Male Surgical History: Reports: None Endocrine Surgical History: Reports: None Neurological Surgical History: Reports: None Musculoskeletal Surgical History: Reports: Carpal Tunnel, Hip Replacement, Knee Replacement Oncologic Surgical History: Reports: None Dermatological Surgical History: Reports: None Social & Family History - Family History Family Medical History: Noncontributory Cardiac: Reports: Heart Failure Neurological: Reports: CVA Endocrine/Metabolic: Reports: Diabetes, type II Oncologic: Reports: Colon - Tobacco Use Tobacco Use Status *Q: Never Tobacco User Used Tobacco, but Quit: No Second Hand Smoke Exposure: No - Caffeine Use Caffeine Use: Reports: Coffee - Recreational Drug Use Recreational Drug Use: No - Living Situation & Occupation Living situation: Reports: , with Significant Other Occupation: Retired H&P Review of Systems - Review of Systems: Review Of Systems: See Below General: Reports: Fatigue, Decreased Appetite HEENT: Reports: No Symptoms Pulmonary: Reports: Cough. Denies: Shortness of Breath Cardiovascular: Reports: No Symptoms Gastrointestinal: Reports: Decreased Appetite Genitourinary: Reports: No Symptoms Musculoskeletal: Reports: No Symptoms Skin: Reports: No Symptoms Psychiatric: Reports: No Symptoms Neurological: Reports: No Symptoms Hematologic/Lymphatic: Reports: No Symptoms Immunologic: Reports: No Symptoms Exam - Exam Exam: See Below - Vital Signs Vital Signs: Last Vital Signs Temp 35.9 C L 05/04/20 09:33 Pulse 68 05/04/20 09:33 Resp 18 05/04/20 09:33 BP 133/66 05/04/20 09:33 Pulse Ox 92 L 05/04/20 09:33 Weight: 92.079 kg - Exam General: Alert, Oriented (Elderly male, NAD) HEENT: Hearing Intact, Mucosa Moist & [place], Nares Patent Neck: Supple Lungs: Normal Respiratory Effort, Other (Scattered rales in the bases, moving air well) Cardiovascular: Regular Rate, Regular Rhythm GI/Abdominal Exam: Normal Bowel Sounds, Soft, Non-Tender (Male) Exam: Deferred Rectal (Males) Exam: Deferred Back Exam: Normal Inspection Extremities: Pedal Edema (mild on the left ankle/foot ) Skin: Warm, Dry, Intact Neurological: Cranial Nerves Intact Neuro Extensive - Mental Status: Alert, Oriented x3, Normal Mood/Affect, Normal Cognition Psychiatric: Alert, Normal Affect, Normal Mood - Patient Data Lab Results Last 24 hrs: Laboratory Results - last 24 hr 05/02/20 05/02/20 05/03/20 Range/Units 16:55 16:55 18:40 WBC (4.0-10.0) x10^3/uL RBC (4.5-6.0) x10^6/uL Hgb (14.0-18.0) g/dL Hct (40.0-52.0) % MCV (78.0-93.0) fL MCH (26.0-32.0) pg MCHC (32.0-36.0) g/dL RDW Coeff of Barbara (10.0-15.0) % Plt Count (130-400) x10^3/uL Add Manual Diff Neutrophils % (Manual) (50-80) % Band Neutrophils % (0-6) % Lymphocytes % (Manual) (25-50) % Reactive Lymphs % (0) % Atypical Lymphs % (0) % Monocytes % (Manual) (2-11) % Eosinophils % (Manual) (0-4) % Vacuolated Monocytes Smudge Cells Toxic Granulation Platelet Estimate Giant Platelets Polychromasia Poikilocytosis Anisocytosis Target Cells Ovalocytes Maize Cells Acanthocytes (Spur) D-Dimer, Quantitative 1.02 H (<=0.58) mg/LFEU VBG pH Cancelled POC VBG pH 7.35 (7.32-7.43) pH VBG pCO2 Cancelled POC VBG pCO2 55 H (41-51) mmHg VBG pO2 Cancelled POC VBG pO2 36 mmHg VBG HCO3 Cancelled POC VBG HCO3 30 H (22-29) mmol/L VBG Total CO2 Cancelled VBG O2 Saturation Cancelled POC Venous O2 Sat 64 % VBG Base Excess Cancelled 4 H Oxygen Flow Rate Cancelled FiO2 Cancelled POC FiO2 0.21 Blood Gas Comments Cancelled Sodium (136-145) mmol/L Potassium (3.5-5.1) mmol/L Chloride (98-107) mmol/L Carbon Dioxide (21-32) mmol/L POC Venous Total CO2 32 H (23-30) mmol/L Anion Gap (10-20) mmol/L BUN (7-18) mg/dL Creatinine (0.70-1.30) mg/dL Est Cr Clr Drug Dosing mL/min Estimated GFR (MDRD) Glucose (74-106) mg/dL Calcium (8.5-10.1) mg/dL Corrected Calcium (8.5-10.1) mg/dL Total Bilirubin (0.2-1.0) mg/dL AST (15-37) U/L ALT (16-63) U/L Alkaline Phosphatase (46-116) U/L Troponin I (<=0.056) ng/mL Total Protein (6.4-8.2) g/dL Albumin (3.4-5.0) g/dL Globulin Albumin/Globulin Ratio 05/03/20 05/04/20 05/04/20 Range/Units 18:40 07:22 07:22 WBC 5.5 (4.0-10.0) x10^3/uL RBC 3.99 L (4.5-6.0) x10^6/uL Hgb 12.3 L (14.0-18.0) g/dL Hct 36.0 L (40.0-52.0) % MCV 90.2 (78.0-93.0) fL MCH 30.8 (26.0-32.0) pg MCHC 34.2 (32.0-36.0) g/dL RDW Coeff of Barbara 14.9 (10.0-15.0) % Plt Count 167 (130-400) x10^3/uL Add Manual Diff Yes Neutrophils % (Manual) 70 (50-80) % Band Neutrophils % 6 (0-6) % Lymphocytes % (Manual) 8 L (25-50) % Reactive Lymphs % 3 H (0) % Atypical Lymphs % 2 H (0) % Monocytes % (Manual) 9 (2-11) % Eosinophils % (Manual) 2 (0-4) % Vacuolated Monocytes Rare Smudge Cells Rare H Toxic Granulation 1+ slight H Platelet Estimate Adequate Giant Platelets Rare H Polychromasia Rare Poikilocytosis 2+ moderate H Anisocytosis 1+ slight H Target Cells 1+ slight H Ovalocytes 1+ slight H Jd Cells 1+ slight H Acanthocytes (Spur) 1+ slight H D-Dimer, Quantitative 1.02 H (<=0.58) mg/LFEU VBG pH POC VBG pH (7.32-7.43) pH VBG pCO2 POC VBG pCO2 (41-51) mmHg VBG pO2 POC VBG pO2 mmHg VBG HCO3 POC VBG HCO3 (22-29) mmol/L VBG Total CO2 VBG O2 Saturation POC Venous O2 Sat % VBG Base Excess Oxygen Flow Rate FiO2 POC FiO2 Blood Gas Comments Sodium (136-145) mmol/L Potassium (3.5-5.1) mmol/L Chloride (98-107) mmol/L Carbon Dioxide (21-32) mmol/L POC Venous Total CO2 (23-30) mmol/L Anion Gap (10-20) mmol/L BUN (7-18) mg/dL Creatinine (0.70-1.30) mg/dL Est Cr Clr Drug Dosing mL/min Estimated GFR (MDRD) Glucose (74-106) mg/dL Calcium (8.5-10.1) mg/dL Corrected Calcium (8.5-10.1) mg/dL Total Bilirubin (0.2-1.0) mg/dL AST (15-37) U/L ALT (16-63) U/L Alkaline Phosphatase (46-116) U/L Troponin I 0.084 H* (<=0.056) ng/mL Total Protein (6.4-8.2) g/dL Albumin (3.4-5.0) g/dL Globulin Albumin/Globulin Ratio 05/04/20 Range/Units 07:22 WBC (4.0-10.0) x10^3/uL RBC (4.5-6.0) x10^6/uL Hgb (14.0-18.0) g/dL Hct (40.0-52.0) % MCV (78.0-93.0) fL MCH (26.0-32.0) pg MCHC (32.0-36.0) g/dL RDW Coeff of Barbara (10.0-15.0) % Plt Count (130-400) x10^3/uL Add Manual Diff Neutrophils % (Manual) (50-80) % Band Neutrophils % (0-6) % Lymphocytes % (Manual) (25-50) % Reactive Lymphs % (0) % Atypical Lymphs % (0) % Monocytes % (Manual) (2-11) % Eosinophils % (Manual) (0-4) % Vacuolated Monocytes Smudge Cells Toxic Granulation Platelet Estimate Giant Platelets Polychromasia Poikilocytosis Anisocytosis Target Cells Ovalocytes Maize Cells Acanthocytes (Spur) D-Dimer, Quantitative (<=0.58) mg/LFEU VBG pH POC VBG pH (7.32-7.43) pH VBG pCO2 POC VBG pCO2 (41-51) mmHg VBG pO2 POC VBG pO2 mmHg VBG HCO3 POC VBG HCO3 (22-29) mmol/L VBG Total CO2 VBG O2 Saturation POC Venous O2 Sat % VBG Base Excess Oxygen Flow Rate FiO2 POC FiO2 Blood Gas Comments Sodium 134 L (136-145) mmol/L Potassium 3.5 (3.5-5.1) mmol/L Chloride 97 L (98-107) mmol/L Carbon Dioxide 33 H (21-32) mmol/L POC Venous Total CO2 (23-30) mmol/L Anion Gap 7.5 L (10-20) mmol/L BUN 21 H (7-18) mg/dL Creatinine 1.5 H (0.70-1.30) mg/dL Est Cr Clr Drug Dosing 38.59 mL/min Estimated GFR (MDRD) 45 Glucose 92 (74-106) mg/dL Calcium 8.3 L (8.5-10.1) mg/dL Corrected Calcium 9.18 (8.5-10.1) mg/dL Total Bilirubin 2.0 H (0.2-1.0) mg/dL AST 40 H (15-37) U/L ALT 36 (16-63) U/L Alkaline Phosphatase 126 H (46-116) U/L Troponin I 0.065 H* (<=0.056) ng/mL Total Protein 6.2 L (6.4-8.2) g/dL Albumin 2.9 L (3.4-5.0) g/dL Globulin 3.3 Albumin/Globulin Ratio 0.88 Result Diagrams: 05/04/20 07:22 05/04/20 07:22 Mina Results Last 24 hrs: Microbiology 05/02/20 17:54 Aerobic Blood Culture - Preliminary Blood - Venous - Lab Draw NO GROWTH AFTER 1 DAY Anaerobic Blood Culture - Preliminary NO GROWTH AFTER 1 DAY 05/02/20 16:55 Aerobic Blood Culture - Preliminary Blood - Venous NO GROWTH AFTER 1 DAY Anaerobic Blood Culture - Preliminary NO GROWTH AFTER 1 DAY Sepsis Event Note - Evaluation Sepsis Screening Result: No Definite Risk - Focused Exam Vital Signs: Vital Signs Temp Temp Pulse Pulse Resp BP BP 05/04/20 09:33 35.9 C L 68 18 133/66 05/04/20 08:53 68 116/65 05/04/20 06:54 36.5 C 61 16 105/58 L 05/04/20 01:44 36.1 C 55 L 16 107/57 L Pulse Ox 05/04/20 09:33 92 L 05/04/20 08:53 05/04/20 06:54 97 05/04/20 01:44 97 Problem List Initiated/Reviewed/Updated: Yes Orders Last 24hrs: Active Orders 24 hr Category Date Time Status EKG 12 Lead [EKG Documentation Completion] [RC] ROUTINE Care 05/03/20 09:30 Active Ready for Discharge [RC] PER UNIT ROUTINE Care 05/04/20 10:08 Ordered Acetaminophen [TylenoL] Med 05/03/20 20:11 Active 650 mg PO Q6H PRN Medication Orders Acetaminophen (Tylenol) 650 mg PO Q6H PRN PRN Reason: Pain Last Admin: 05/03/20 20:46 Dose: 650 mg Documented by: ALPHONSO Albuterol (Ventolin Hfa) 0 gm INH Q4H PRN PRN Reason: Shortness of Breath Aspirin (Halfprin) 81 mg PO BEDTIME [facility] Last Admin: 05/03/20 20:45 Dose: 81 mg Documented by: Admin: 05/02/20 23:48 Dose: Not Given Documented by: ALPHONSO Calcium Carbonate (Calcium Carbonate/Vitamin D 1250 Mg-200 Unit) 1 tab PO DAILY [facility] Last Admin: 05/04/20 08:53 Dose: 1 tab Documented by: Admin: 05/03/20 08:08 Dose: 1 tab Documented by: Admin: 05/03/20 08:08 Dose: 1 tab Documented by: SASKIA Furosemide (Lasix) 40 mg IV BIDDIURETIC [facility] Last Admin: 05/04/20 08:54 Dose: 40 mg Documented by: Admin: 05/03/20 16:15 Dose: 40 mg Documented by: Admin: 05/03/20 08:09 Dose: 40 mg Documented by: SASKIA Metoprolol Succinate (Toprol Xl) 12.5 mg PO DAILY [facility] Last Admin: 05/04/20 08:53 Dose: 12.5 mg Documented by: Admin: 05/03/20 08:07 Dose: 12.5 mg Documented by: SASKIA Multivitamins/Minerals (Thera M Plus) 1 tab PO DAILY [facility] Last Admin: 05/04/20 08:53 Dose: 1 tab Documented by: Admin: 05/03/20 08:09 Dose: 1 tab Documented by: SASKIA Potassium Chloride (Klor-Con M20) 20 meq PO DAILY [facility] Last Admin: 05/04/20 08:53 Dose: 20 meq Documented by: Admin: 05/03/20 08:07 Dose: 20 meq Documented by: SASKIA Simvastatin (Zocor) 10 mg PO DAILY [facility] Last Admin: 05/04/20 08:54 Dose: 10 mg Documented by: Admin: 05/03/20 08:07 Dose: 10 mg Documented by: SASKIA Sodium Chloride (Saline Flush) 10 ml FLUSH ASDIRECTED PRN PRN Reason: Keep Vein Open Last Admin: 05/03/20 20:45 Dose: 10 ml Documented by: Admin: 05/03/20 16:15 Dose: 10 ml Documented by: Admin: 05/02/20 20:08 Dose: 10 ml Documented by: ALPHONSO Tramadol HCl (Ultram) 50 mg PO Q6H PRN PRN Reason: Pain Assessment/Plan Comment:: Discussed transitioning patient to acute states with Hanane Grimaldo MD. She feels we should keep him observation at this point and reevaluate the patient tomorrow. Pt. is quite weak and likely will require transition to acute status tomorrow. Will trend troponin I and d dimer this evening. If the patient was having an NSTEMI, I would expect his troponin to be higher. His EKG was repeated this AM, and showed no evidence of acute ischemia. Troponin elevation likely secondary to MARNI. His d dimer is only mildly elevated, so this will also be trended. Risks of administering IV contrast outweigh benefits at this time, due this his decreased renal function. Will reevalulate d dimer and perform CTA if there is a significant increase in d dimer. 1)COVID+ 2)Weakness 3)Elevated Troponin 4)CHF 5)CKD Stage 3 DISCUSSION: Labs reviewed. Note Troponin is trending down. DDimer stable at 1.02. Vitals stable. Labs are stable and probably a result of the CHF and CKD. Patient seen by PT this AM and cleared to go home. Labs reviewed with Dr Hanane Grimaldo by phone. Case reviewed and she agrees to discharge to home today for patient. Will send him home with Lasix 40mg BID. Patient will have clinic visit on for recheck.
== END 2020-05-04 13:30 | disposition home or self-care (01) ==
LOC: VM.ED 16:18 → VM.MS 18:57 → INTOOBSV 18:57
PROVIDERS: ADMIT Nurse Practitioner Family; ATTEND Nurse Practitioner Family
DX: U07.1 COVID-19 (principal); R77.8 Other specified abnormalities of plasma proteins; I50.9 Heart failure, unspecified; N18.30 Chronic kidney disease, stage 3 unspecified; E78.00 Pure hypercholesterolemia, unspecified; I27.20 Pulmonary hypertension, unspecified; E66.9 Obesity, unspecified; Z79.899 Other long term (current) drug therapy; Z79.82 Long term (current) use of aspirin; Z68.29 Body mass index [BMI] 29.0-29.9, adult
CPT/HCPCS: 36415; 71045; 80053; 82728; 82803; 83605; 83615; 83880; 84145; 84484; 85025; 85027; 85379; 85610; 85730; 86140; 87040; 93005; 93010; 96361; 96374; 97162-GP; 99284; 99285-25; A9270-GY; J1940; J7120

== ENCOUNTER 2023-04-10 11:41 | Inpatient (IN) | payer MEDICARE, BC ==
[2023-04-10 12:16] LABS: BASOPHILS PERCENT AUTO 0.3 % (0.2-1.2); EOSINOPHILS ABSOLUTE AUTO 0.1 x10^3/uL (0.0-0.5); EOSINOPHILS PERCENT AUTO 1.1 % (0.0-4.0); HEMATOCRIT 38.1 % (40.0-52.0); HEMOGLOBIN 12.8 g/dL (14.0-18.0); IMMATURE GRAN ABSOLUTE AUTO 0.02 x10^3/uL (0.00-0.07); LYMPHOCYTES ABSOLUTE AUTO 0.8 x10^3/uL (1.0-4.8); LYMPHOCYTES PERCENT AUTO 6.8 % (25.0-50.0); MEAN CORPUSCULAR HEMOGLOBIN 28.8 pg (26.0-32.0); MEAN CORPUSCULAR HGB CONC 33.6 g/dL (32.0-36.0); MEAN CORPUSCULAR VOLUME 85.6 fL (78.0-93.0); MONOCYTES ABSOLUTE AUTO 1.1 x10^3/uL (0.0-0.8); MONOCYTES PERCENT AUTO 9.7 % (2.0-11.0); NEUTROPHILS ABSOLUTE AUTO 9.3 x10^3/uL (1.8-7.7); NEUTROPHILS PERCENT AUTO 81.9 % (50.0-80.0); PLATELET COUNT,PLT 287 x10^3/uL (130-400); RED BLOOD CELL COUNT 4.45 x10^6/uL (4.5-6.0); WHITE BLOOD CELL COUNT,WBC 11.3 x10^3/uL (4.0-10.0)
[2023-04-10 12:17] LABS: APPEARANCE,URINE CLEAR (CLEAR); BILIRUBIN,URINE NEGATIVE (NEGATIVE); COLOR,URINE YELLOW (YELLOW); GLUCOSE,URINE 250 mg/dL (NEGATIVE); KETONES,URINE NEGATIVE (NEGATIVE); LEUKOCYTE ESTERASE,URINE NEGATIVE (NEGATIVE); NITRITE,URINE NEGATIVE (NEGATIVE); OCCULT BLOOD,URINE TRACE-INTACT (NEGATIVE); PROTEIN,URINE NEGATIVE (NEGATIVE); UROBILINOGEN,URINE 0.2 EU/dL (0.2)
[2023-04-10 12:18] LABS: BACTERIA,URINE RARE /HPF (NOT SEEN); MUCUS,URINE RARE /LPF (NOT SEEN); RBC,URINE 0-5 /HPF (NOT SEEN); SQUAMOUS EPITHELIAL CELLS,UR NOT SEEN /HPF (NOT SEEN); WBC,URINE 0-5 /HPF (NOT SEEN)
[2023-04-10 12:45] LABS: A/G RATIO 0.62; ALANINE AMINOTRANSFERASE,ALT 24 U/L (16-63); ALBUMIN 2.8 g/dL (3.4-5.0); ALKALINE PHOSPHATASE 126 U/L (46-116); ANION GAP 11.9 mmol/L (5-15); ASPARTATE AMNIOTRANSFERASE,AST 27 U/L (15-37); BILIRUBIN TOTAL 2.6 mg/dL (0.2-1.0); BLOOD UREA NITROGEN,BUN 49 mg/dL (7-18); CARBON DIOXIDE,CO2 33 mmol/L (21-32); CHLORIDE,CL 87 mmol/L (98-107); CREATININE 2.1 mg/dL (0.70-1.30); ESTIMATED GFR 30 mL/min (>=60); GLUCOSE RANDOM 110 mg/dL (70-99); MAGNESIUM 2.2 mg/dL (1.8-2.4); PRO B-TYPE NATRIUR PEPT,BNPPRO 11582 pg/mL (<=450); PROTEIN TOTAL,TP 7.3 g/dL (6.4-8.2)
[2023-04-10 12:46] LABS: POTASSIUM,K 2.9 mmol/L (3.5-5.1); SODIUM,NA 129 mmol/L (136-145)
[2023-04-10 12:54] LABS: C-REACTIVE PROTEIN 48.17 mg/dL (<=0.30)
[2023-04-10 13:04] LABS: SEDIMENTATION RATE AUTO 56 mm/hr (0-15)
[2023-04-10] MEDS ORDERED: NS + KCl 20mEq/L 1,000 ML IV SCH (13:15)
[2023-04-10] MEDS ORDERED: methylPREDNISolone Sodium Succinate 40 MG/1 ML SDV IVPUSH ONE ×2 (13:46→16:54)
[2023-04-10] MEDS ORDERED: Ondansetron 4 MG/2 ML SDV IV PRN (14:29)
[2023-04-10] MEDS ORDERED: Ondansetron 4 MG Tab.DIS PO PRN (14:29)
[2023-04-10] MEDS ORDERED: Polyethylene Glycol 3350 Powder 17 GM Packet PO PRN (14:58)
[2023-04-10] MEDS ORDERED: NS + KCl 20mEq/L 1,000 ML IV ONE (15:00)
[2023-04-10] MEDS: Potassium Chloride 10 MEQ Tab.ER PO SCH ×2 (16:02→20:03)
[2023-04-10] MEDS: fentaNYL 50 MCG/ML SDV IVPUSH PRN (16:49)
[2023-04-10 18:05] LABS: POTASSIUM,K 3.7 mmol/L (3.5-5.1)
[2023-04-10] MEDS ORDERED: Acetaminophen/HYDROcodone 325-5 MG Tab PO PRN (19:27)
[2023-04-10] MEDS: Apixaban 2.5 MG Tab PO SCH (20:00)
[2023-04-10] MEDS ORDERED: Glucagon,Human Recombinant 1 MG Vial IM PRN (21:27)
[2023-04-10] MEDS ORDERED: 50% Dextrose in Water 50 ML Syringe IVPUSH PRN (21:27)
[2023-04-10] MEDS: Insulin Glarg,Human.Rec.Analog 100 Unit/ML 10 ML Vial SUBCUT SCH (23:21)
[2023-04-11 07:17] LABS: BASOPHILS PERCENT AUTO 0.1 % (0.2-1.2); HEMOGLOBIN 13.1 g/dL (14.0-18.0); IMMATURE GRAN ABSOLUTE AUTO 0.02 x10^3/uL (0.00-0.07); LYMPHOCYTES ABSOLUTE AUTO 0.8 x10^3/uL (1.0-4.8); LYMPHOCYTES PERCENT AUTO 9.1 % (25.0-50.0); MEAN CORPUSCULAR HEMOGLOBIN 28.8 pg (26.0-32.0); MEAN CORPUSCULAR HGB CONC 33.6 g/dL (32.0-36.0); MEAN CORPUSCULAR VOLUME 85.7 fL (78.0-93.0); MONOCYTES ABSOLUTE AUTO 0.3 x10^3/uL (0.0-0.8); MONOCYTES PERCENT AUTO 3.7 % (2.0-11.0); NEUTROPHILS ABSOLUTE AUTO 7.2 x10^3/uL (1.8-7.7); NEUTROPHILS PERCENT AUTO 86.9 % (50.0-80.0); PLATELET COUNT,PLT 336 x10^3/uL (130-400); RED BLOOD CELL COUNT 4.55 x10^6/uL (4.5-6.0); WHITE BLOOD CELL COUNT,WBC 8.3 x10^3/uL (4.0-10.0)
[2023-04-11 07:37] LABS: A/G RATIO 0.55; ALBUMIN 2.6 g/dL (3.4-5.0); BILIRUBIN TOTAL 1.7 mg/dL (0.2-1.0); CALCIUM 9.1 mg/dL (8.5-10.1); CREATININE 2.1 mg/dL (0.70-1.30); EST CRCL DRUG DOSING (CG) 26.55 mL/min; POTASSIUM,K 3.1 mmol/L (3.5-5.1); PROTEIN TOTAL,TP 7.3 g/dL (6.4-8.2)
[2023-04-11 07:38] LABS: ANION GAP 13.1 mmol/L (5-15)
[2023-04-11] MEDS: Multivitamin Tab PO SCH (08:29)
[2023-04-11] MEDS: methylPREDNISolone Sodium Succinate 125 MG/2 ML SDV IVPUSH SCH ×2 (08:30→20:12)
[2023-04-11] MEDS: Spironolactone 25 MG Tab PO SCH (08:30)
[2023-04-11] MEDS: Tamsulosin 0.4 MG Cap.ER PO SCH (08:30)
[2023-04-11] MEDS: Calcium Carbonate/Vitamin D3 1250 MG-5 MCG Tab PO SCH (08:30)
[2023-04-11] MEDS: Apixaban 2.5 MG Tab PO SCH ×2 (08:30→20:13)
[2023-04-11] MEDS ORDERED: Potassium Chloride 10 MEQ Tab.ER PO SCH (09:00)
[2023-04-11] MEDS ORDERED: Enoxaparin 40 MG/0.4 ML Syringe SUBCUT SCH (09:00)
[2023-04-11] MEDS: Insulin Glarg,Human.Rec.Analog 100 Unit/ML 10 ML Vial SUBCUT SCH (20:11)
[2023-04-11] MEDS: TAFAMIDIS 61 MG PO SCH (20:13)
[2023-04-11] MEDS: traMADol 50 MG Tab PO PRN (20:13)
[2023-04-12] MEDS: fentaNYL 50 MCG/ML SDV IVPUSH PRN ×2 (02:13→20:00)
[2023-04-12 06:59] LABS: BASOPHILS PERCENT AUTO 0.1 % (0.2-1.2); HEMATOCRIT 37.6 % (40.0-52.0); HEMOGLOBIN 12.6 g/dL (14.0-18.0); IMMATURE GRAN ABSOLUTE AUTO 0.03 x10^3/uL (0.00-0.07); LYMPHOCYTES ABSOLUTE AUTO 0.8 x10^3/uL (1.0-4.8); LYMPHOCYTES PERCENT AUTO 5.2 % (25.0-50.0); MEAN CORPUSCULAR HGB CONC 33.5 g/dL (32.0-36.0); MEAN CORPUSCULAR VOLUME 86.4 fL (78.0-93.0); MONOCYTES ABSOLUTE AUTO 0.4 x10^3/uL (0.0-0.8); MONOCYTES PERCENT AUTO 2.6 % (2.0-11.0); NEUTROPHILS ABSOLUTE AUTO 14.4 x10^3/uL (1.8-7.7); NEUTROPHILS PERCENT AUTO 91.9 % (50.0-80.0); PLATELET COUNT,PLT 350 x10^3/uL (130-400); RED BLOOD CELL COUNT 4.35 x10^6/uL (4.5-6.0); WHITE BLOOD CELL COUNT,WBC 15.6 x10^3/uL (4.0-10.0)
[2023-04-12 07:23] LABS: C-REACTIVE PROTEIN 13.19 mg/dL (<=0.30); CALCIUM 8.7 mg/dL (8.5-10.1); EST CRCL DRUG DOSING (CG) 27.88 mL/min; MAGNESIUM 2.6 mg/dL (1.8-2.4); POTASSIUM,K 3.4 mmol/L (3.5-5.1)
[2023-04-12 07:25] LABS: ANION GAP 12.4 mmol/L (5-15)
[2023-04-12] MEDS: Spironolactone 25 MG Tab PO SCH (09:15)
[2023-04-12] MEDS: Colchicine 0.6 MG Tab PO SCH (09:16)
[2023-04-12] MEDS: Calcium Carbonate/Vitamin D3 1250 MG-5 MCG Tab PO SCH (09:16)
[2023-04-12] MEDS: Apixaban 2.5 MG Tab PO SCH ×2 (09:17→20:00)
[2023-04-12] MEDS: Tamsulosin 0.4 MG Cap.ER PO SCH (09:17)
[2023-04-12] MEDS: Multivitamin Tab PO SCH (09:18)
[2023-04-12] MEDS: Potassium Chloride 20 MEQ Tab.ER PO SCH (09:18)
[2023-04-12] MEDS: predniSONE 20 MG Tab PO SCH (09:18)
[2023-04-12] MEDS: traMADol 50 MG Tab PO PRN (17:10)
[2023-04-12] MEDS: Insulin Glarg,Human.Rec.Analog 100 Unit/ML 10 ML Vial SUBCUT SCH ×2 (19:58→20:22)
[2023-04-12] MEDS: TAFAMIDIS 61 MG PO SCH (20:00)
[2023-04-13 06:42] LABS: BASOPHILS PERCENT AUTO 0.1 % (0.2-1.2); HEMATOCRIT 36.9 % (40.0-52.0); HEMOGLOBIN 12.3 g/dL (14.0-18.0); IMMATURE GRAN ABSOLUTE AUTO 0.05 x10^3/uL (0.00-0.07); LYMPHOCYTES ABSOLUTE AUTO 1.1 x10^3/uL (1.0-4.8); LYMPHOCYTES PERCENT AUTO 7.8 % (25.0-50.0); MEAN CORPUSCULAR HEMOGLOBIN 28.8 pg (26.0-32.0); MEAN CORPUSCULAR HGB CONC 33.3 g/dL (32.0-36.0); MEAN CORPUSCULAR VOLUME 86.4 fL (78.0-93.0); MONOCYTES ABSOLUTE AUTO 0.6 x10^3/uL (0.0-0.8); MONOCYTES PERCENT AUTO 4.4 % (2.0-11.0); NEUTROPHILS PERCENT AUTO 87.3 % (50.0-80.0); PLATELET COUNT,PLT 375 x10^3/uL (130-400); RED BLOOD CELL COUNT 4.27 x10^6/uL (4.5-6.0); WHITE BLOOD CELL COUNT,WBC 13.7 x10^3/uL (4.0-10.0)
[2023-04-13 07:12] LABS: A/G RATIO 0.63; ALBUMIN 2.5 g/dL (3.4-5.0); ANION GAP 10.1 mmol/L (5-15); C-REACTIVE PROTEIN 7.4 mg/dL (<=0.30); CALCIUM 8.5 mg/dL (8.5-10.1); CREATININE 1.8 mg/dL (0.70-1.30); EST CRCL DRUG DOSING (CG) 30.98 mL/min; POTASSIUM,K 4.1 mmol/L (3.5-5.1); PROTEIN TOTAL,TP 6.5 g/dL (6.4-8.2)
[2023-04-13] MEDS: Apixaban 2.5 MG Tab PO SCH (08:47)
[2023-04-13] MEDS: Colchicine 0.6 MG Tab PO SCH (08:47)
[2023-04-13] MEDS: Tamsulosin 0.4 MG Cap.ER PO SCH (08:47)
[2023-04-13] MEDS: Potassium Chloride 20 MEQ Tab.ER PO SCH (08:47)
[2023-04-13] MEDS: Calcium Carbonate/Vitamin D3 1250 MG-5 MCG Tab PO SCH (08:48)
[2023-04-13] MEDS: predniSONE 20 MG Tab PO SCH (08:48)
[2023-04-13] MEDS: Spironolactone 25 MG Tab PO SCH (08:49)
[2023-04-13] MEDS: Multivitamin Tab PO SCH (08:49)
[2023-04-13 10:17] VITALS: BP 98/64; PULSE 69
== END 2023-04-13 10:56 | disposition swing bed (61) | DRG 545 ==
LOC: VM.ED 11:41 → VM.MS 13:31
PROVIDERS: ADMIT Internal Medicine; ATTEND Family Medicine
DX: M35.3 Polymyalgia rheumatica (principal); I21.4 Non-ST elevation (NSTEMI) myocardial infarction; E87.1 Hypo-osmolality and hyponatremia; N18.4 Chronic kidney disease, stage 4 (severe); N17.9 Acute kidney failure, unspecified; I50.32 Chronic diastolic (congestive) heart failure; I48.20 Chronic atrial fibrillation, unspecified; E85.4 Organ-limited amyloidosis; I43 Cardiomyopathy in diseases classified elsewhere; E87.6 Hypokalemia; M10.9 Gout, unspecified; Z66 Do not resuscitate; D63.1 Anemia in chronic kidney disease; I13.0 Hypertensive heart and chronic kidney disease with heart failure and stage 1 through stage 4 chronic kidney disease, or unspecified chronic kidney disease; G47.33 Obstructive sleep apnea (adult) (pediatric); M17.10 Unilateral primary osteoarthritis, unspecified knee; Z96.649 Presence of unspecified artificial hip joint; Z96.659 Presence of unspecified artificial knee joint; I27.20 Pulmonary hypertension, unspecified; N18.30 Chronic kidney disease, stage 3 unspecified; I08.1 Rheumatic disorders of both mitral and tricuspid valves; I50.9 Heart failure, unspecified; Z68.30 Body mass index [BMI] 30.0-30.9, adult; Z20.822 Contact with and (suspected) exposure to COVID-19; Z79.01 Long term (current) use of anticoagulants; Z86.010 Personal history of colon polyps; Z98.890 Other specified postprocedural states; Z95.0 Presence of cardiac pacemaker; Z86.16 Personal history of COVID-19; E78.00 Pure hypercholesterolemia, unspecified; E66.9 Obesity, unspecified; Z79.82 Long term (current) use of aspirin; Z79.899 Other long term (current) drug therapy
CPT/HCPCS: 36415; 51798; 71045; 80048; 80053; 81001; 82550; 82947; 83605; 83735; 83880; 84132; 84145; 84484; 84550; 85025; 85652; 86140; 94760; 96374; 97116-GP; 97161-GP; 97166-GO; 99284; 99285-25; A9270-GY; G0008; J1815-GY; J2920; J2930; J3010; J3480; J7512; U0002

== ENCOUNTER 2023-04-13 09:48 | Inpatient (IN) | payer MEDICARE, BC ==
[2023-04-13] MEDS ORDERED: fentaNYL 50 MCG/ML SDV IVPUSH PRN (10:09)
[2023-04-13] MEDS ORDERED: Polyethylene Glycol 3350 Powder 17 GM Packet PO PRN (10:09)
[2023-04-13] MEDS ORDERED: 50% Dextrose in Water 50 ML Syringe IVPUSH PRN (10:09)
[2023-04-13] MEDS ORDERED: Acetaminophen/HYDROcodone 325-5 MG Tab PO PRN (10:09)
[2023-04-13] MEDS ORDERED: Glucagon,Human Recombinant 1 MG Vial IM PRN ×2 (10:09)
[2023-04-13] MEDS: traMADol 50 MG Tab PO PRN ×2 (13:46→21:28)
[2023-04-13] MEDS: Insulin Glarg,Human.Rec.Analog 100 Unit/ML 10 ML Vial SUBCUT SCH (21:17)
[2023-04-13] MEDS: Apixaban 2.5 MG Tab PO SCH (21:21)
[2023-04-13] MEDS: TAFAMIDIS 61 MG PO SCH (21:21)
[2023-04-14] MEDS: Potassium Chloride 20 MEQ Tab.ER PO SCH (08:26)
[2023-04-14] MEDS: Colchicine 0.6 MG Tab PO SCH (08:27)
[2023-04-14] MEDS: predniSONE 20 MG Tab PO SCH (08:27)
[2023-04-14] MEDS: Multivitamin Tab PO SCH (08:27)
[2023-04-14] MEDS: Apixaban 2.5 MG Tab PO SCH ×2 (08:27→20:48)
[2023-04-14] MEDS: Calcium Carbonate/Vitamin D3 1250 MG-5 MCG Tab PO SCH (08:27)
[2023-04-14] MEDS: Tamsulosin 0.4 MG Cap.ER PO SCH (08:28)
[2023-04-14] MEDS: Spironolactone 25 MG Tab PO SCH (08:28)
[2023-04-14] MEDS: traMADol 50 MG Tab PO PRN (16:20)
[2023-04-14] MEDS: Insulin Glarg,Human.Rec.Analog 100 Unit/ML 10 ML Vial SUBCUT SCH (20:47)
[2023-04-14] MEDS: TAFAMIDIS 61 MG PO SCH (20:48)
[2023-04-15] MEDS: Colchicine 0.6 MG Tab PO SCH (08:51)
[2023-04-15] MEDS: Potassium Chloride 20 MEQ Tab.ER PO SCH (08:51)
[2023-04-15] MEDS: Tamsulosin 0.4 MG Cap.ER PO SCH (08:51)
[2023-04-15] MEDS: traMADol 50 MG Tab PO PRN ×2 (08:51→21:20)
[2023-04-15] MEDS: Multivitamin Tab PO SCH (08:52)
[2023-04-15] MEDS: Apixaban 2.5 MG Tab PO SCH ×2 (08:52→21:20)
[2023-04-15] MEDS: predniSONE 20 MG Tab PO SCH (08:52)
[2023-04-15] MEDS: Calcium Carbonate/Vitamin D3 1250 MG-5 MCG Tab PO SCH (08:52)
[2023-04-15] MEDS: Spironolactone 25 MG Tab PO SCH (08:52)
[2023-04-15] MEDS: Insulin Glarg,Human.Rec.Analog 100 Unit/ML 10 ML Vial SUBCUT SCH (21:18)
[2023-04-15] MEDS: TAFAMIDIS 61 MG PO SCH (21:20)
[2023-04-16] MEDS: Spironolactone 25 MG Tab PO SCH (08:33)
[2023-04-16] MEDS: Potassium Chloride 20 MEQ Tab.ER PO SCH (08:33)
[2023-04-16] MEDS: Colchicine 0.6 MG Tab PO SCH (08:33)
[2023-04-16] MEDS: predniSONE 20 MG Tab PO SCH (08:33)
[2023-04-16] MEDS: Apixaban 2.5 MG Tab PO SCH ×2 (08:33→20:30)
[2023-04-16] MEDS: Calcium Carbonate/Vitamin D3 1250 MG-5 MCG Tab PO SCH (08:33)
[2023-04-16] MEDS: Multivitamin Tab PO SCH (08:34)
[2023-04-16] MEDS: Tamsulosin 0.4 MG Cap.ER PO SCH (08:34)
[2023-04-16] MEDS: TAFAMIDIS 61 MG PO SCH (20:27)
[2023-04-16] MEDS: Insulin Glarg,Human.Rec.Analog 100 Unit/ML 10 ML Vial SUBCUT SCH (20:27)
[2023-04-17 07:54] LABS: EOSINOPHILS PERCENT AUTO 0.1 % (0.0-4.0); HEMATOCRIT 38.4 % (40.0-52.0); HEMOGLOBIN 12.8 g/dL (14.0-18.0); IMMATURE GRAN ABSOLUTE AUTO 0.08 x10^3/uL (0.00-0.07); LYMPHOCYTES ABSOLUTE AUTO 1.5 x10^3/uL (1.0-4.8); LYMPHOCYTES PERCENT AUTO 11.8 % (25.0-50.0); MEAN CORPUSCULAR HEMOGLOBIN 29.1 pg (26.0-32.0); MEAN CORPUSCULAR HGB CONC 33.3 g/dL (32.0-36.0); MEAN CORPUSCULAR VOLUME 87.3 fL (78.0-93.0); MONOCYTES ABSOLUTE AUTO 0.7 x10^3/uL (0.0-0.8); MONOCYTES PERCENT AUTO 5.7 % (2.0-11.0); NEUTROPHILS ABSOLUTE AUTO 10.7 x10^3/uL (1.8-7.7); NEUTROPHILS PERCENT AUTO 81.8 % (50.0-80.0); PLATELET COUNT,PLT 421 x10^3/uL (130-400)
[2023-04-17 08:01] LABS: A/G RATIO 0.78; ALBUMIN 2.8 g/dL (3.4-5.0); BILIRUBIN TOTAL 1.1 mg/dL (0.2-1.0); C-REACTIVE PROTEIN 1.22 mg/dL (<=0.30); CALCIUM 8.9 mg/dL (8.5-10.1); CREATININE 1.3 mg/dL (0.70-1.30); EST CRCL DRUG DOSING (CG) 42.9 mL/min; MAGNESIUM 2.4 mg/dL (1.8-2.4); POTASSIUM,K 5.6 mmol/L (3.5-5.1); PROTEIN TOTAL,TP 6.4 g/dL (6.4-8.2)
[2023-04-17 08:14] LABS: ANION GAP 13.6 mmol/L (5-15)
[2023-04-17] MEDS: Calcium Carbonate/Vitamin D3 1250 MG-5 MCG Tab PO SCH (09:26)
[2023-04-17] MEDS: Multivitamin Tab PO SCH (09:28)
[2023-04-17] MEDS: Spironolactone 25 MG Tab PO SCH (09:29)
[2023-04-17] MEDS: Tamsulosin 0.4 MG Cap.ER PO SCH (09:30)
[2023-04-17] MEDS: Apixaban 2.5 MG Tab PO SCH ×2 (09:30→20:41)
[2023-04-17] MEDS: predniSONE 20 MG Tab PO SCH (09:30)
[2023-04-17] MEDS: TAFAMIDIS 61 MG PO SCH (20:41)
[2023-04-17] MEDS: Insulin Glarg,Human.Rec.Analog 100 Unit/ML 10 ML Vial SUBCUT SCH (21:52)
[2023-04-18] MEDS: Apixaban 2.5 MG Tab PO SCH ×2 (08:31→20:30)
[2023-04-18] MEDS: Spironolactone 25 MG Tab PO SCH (08:31)
[2023-04-18] MEDS: Potassium Chloride 10 MEQ Tab.ER PO SCH (08:32)
[2023-04-18] MEDS: Tamsulosin 0.4 MG Cap.ER PO SCH (08:32)
[2023-04-18] MEDS: Multivitamin Tab PO SCH (08:32)
[2023-04-18] MEDS: Calcium Carbonate/Vitamin D3 1250 MG-5 MCG Tab PO SCH (08:33)
[2023-04-18] MEDS: predniSONE 20 MG Tab PO SCH (08:33)
[2023-04-18] MEDS: TAFAMIDIS 61 MG PO SCH (20:30)
[2023-04-19 07:02] LABS: BASOPHILS PERCENT AUTO 0.1 % (0.2-1.2); EOSINOPHILS ABSOLUTE AUTO 0.1 x10^3/uL (0.0-0.5); EOSINOPHILS PERCENT AUTO 0.9 % (0.0-4.0); HEMATOCRIT 37.6 % (40.0-52.0); HEMOGLOBIN 12.3 g/dL (14.0-18.0); IMMATURE GRAN ABSOLUTE AUTO 0.06 x10^3/uL (0.00-0.07); LYMPHOCYTES ABSOLUTE AUTO 1.5 x10^3/uL (1.0-4.8); LYMPHOCYTES PERCENT AUTO 15.3 % (25.0-50.0); MEAN CORPUSCULAR HEMOGLOBIN 28.5 pg (26.0-32.0); MEAN CORPUSCULAR HGB CONC 32.7 g/dL (32.0-36.0); MEAN CORPUSCULAR VOLUME 87.2 fL (78.0-93.0); MONOCYTES ABSOLUTE AUTO 0.8 x10^3/uL (0.0-0.8); NEUTROPHILS ABSOLUTE AUTO 7.3 x10^3/uL (1.8-7.7); NEUTROPHILS PERCENT AUTO 75.1 % (50.0-80.0); PLATELET COUNT,PLT 356 x10^3/uL (130-400); RED BLOOD CELL COUNT 4.31 x10^6/uL (4.5-6.0); WHITE BLOOD CELL COUNT,WBC 9.7 x10^3/uL (4.0-10.0)
[2023-04-19 07:17] LABS: ANION GAP 12.9 mmol/L (5-15); CALCIUM 8.5 mg/dL (8.5-10.1); CREATININE 1.3 mg/dL (0.70-1.30); EST CRCL DRUG DOSING (CG) 42.9 mL/min; POTASSIUM,K 4.9 mmol/L (3.5-5.1)
[2023-04-19] MEDS: Tamsulosin 0.4 MG Cap.ER PO SCH (08:26)
[2023-04-19] MEDS: Apixaban 2.5 MG Tab PO SCH ×2 (08:26→20:44)
[2023-04-19] MEDS: Calcium Carbonate/Vitamin D3 1250 MG-5 MCG Tab PO SCH (08:26)
[2023-04-19] MEDS: Potassium Chloride 10 MEQ Tab.ER PO SCH (08:26)
[2023-04-19] MEDS: Spironolactone 25 MG Tab PO SCH (08:27)
[2023-04-19] MEDS: Multivitamin Tab PO SCH (08:27)
[2023-04-19] MEDS: predniSONE 20 MG Tab PO SCH (08:27)
[2023-04-19] MEDS: TAFAMIDIS 61 MG PO SCH (20:43)
[2023-04-20] MEDS: Tamsulosin 0.4 MG Cap.ER PO SCH (09:27)
[2023-04-20] MEDS: Spironolactone 25 MG Tab PO SCH (09:27)
[2023-04-20] MEDS: Multivitamin Tab PO SCH (09:28)
[2023-04-20] MEDS: Calcium Carbonate/Vitamin D3 1250 MG-5 MCG Tab PO SCH (09:29)
[2023-04-20] MEDS: Apixaban 2.5 MG Tab PO SCH ×3 (09:29→21:00)
[2023-04-20] MEDS: Potassium Chloride 10 MEQ Tab.ER PO SCH (09:29)
[2023-04-20] MEDS: predniSONE 10 MG Tab PO SCH (09:29)
[2023-04-20] MEDS: TAFAMIDIS 61 MG PO SCH ×2 (19:50→21:00)
[2023-04-21] MEDS: Spironolactone 25 MG Tab PO SCH (09:11)
[2023-04-21] MEDS: Calcium Carbonate/Vitamin D3 1250 MG-5 MCG Tab PO SCH (09:12)
[2023-04-21] MEDS: Tamsulosin 0.4 MG Cap.ER PO SCH (09:12)
[2023-04-21] MEDS: Apixaban 2.5 MG Tab PO SCH ×2 (09:12→20:53)
[2023-04-21] MEDS: predniSONE 10 MG Tab PO SCH (09:13)
[2023-04-21] MEDS: Potassium Chloride 10 MEQ Tab.ER PO SCH (09:13)
[2023-04-21] MEDS: Multivitamin Tab PO SCH (09:13)
[2023-04-21] MEDS: TAFAMIDIS 61 MG PO SCH (20:54)
[2023-04-22] MEDS: Spironolactone 25 MG Tab PO SCH (08:04)
[2023-04-22] MEDS: Tamsulosin 0.4 MG Cap.ER PO SCH (08:05)
[2023-04-22] MEDS: Apixaban 2.5 MG Tab PO SCH ×2 (08:05→20:13)
[2023-04-22] MEDS: Potassium Chloride 10 MEQ Tab.ER PO SCH (08:05)
[2023-04-22] MEDS: predniSONE 10 MG Tab PO SCH (08:05)
[2023-04-22] MEDS: Calcium Carbonate/Vitamin D3 1250 MG-5 MCG Tab PO SCH (08:06)
[2023-04-22] MEDS: Multivitamin Tab PO SCH (08:06)
[2023-04-22] MEDS: TAFAMIDIS 61 MG PO SCH (20:12)
[2023-04-23] MEDS: Calcium Carbonate/Vitamin D3 1250 MG-5 MCG Tab PO SCH (08:07)
[2023-04-23] MEDS: predniSONE 10 MG Tab PO SCH (08:07)
[2023-04-23] MEDS: Multivitamin Tab PO SCH (08:07)
[2023-04-23] MEDS: Spironolactone 25 MG Tab PO SCH (08:07)
[2023-04-23] MEDS: Tamsulosin 0.4 MG Cap.ER PO SCH (08:07)
[2023-04-23] MEDS: Apixaban 2.5 MG Tab PO SCH ×2 (08:07→20:39)
[2023-04-23] MEDS: Potassium Chloride 10 MEQ Tab.ER PO SCH (08:07)
[2023-04-23] MEDS: TAFAMIDIS 61 MG PO SCH (20:39)
[2023-04-24] MEDS: Spironolactone 25 MG Tab PO SCH (09:58)
[2023-04-24] MEDS: predniSONE 10 MG Tab PO SCH (09:58)
[2023-04-24] MEDS: Multivitamin Tab PO SCH (09:58)
[2023-04-24] MEDS: Calcium Carbonate/Vitamin D3 1250 MG-5 MCG Tab PO SCH (09:58)
[2023-04-24] MEDS: Tamsulosin 0.4 MG Cap.ER PO SCH (09:58)
[2023-04-24] MEDS: Apixaban 2.5 MG Tab PO SCH ×2 (09:58→20:26)
[2023-04-24] MEDS: Potassium Chloride 10 MEQ Tab.ER PO SCH (09:58)
[2023-04-24] MEDS ORDERED: FLU (Fluad Quad) 2023-24(65UP)/MF59C/PF 60 MCG/0.5 ML Syringe IM ONE (14:00)
[2023-04-24] MEDS: TAFAMIDIS 61 MG PO SCH (20:24)
[2023-04-25] MEDS: Multivitamin Tab PO SCH (08:12)
[2023-04-25] MEDS: Calcium Carbonate/Vitamin D3 1250 MG-5 MCG Tab PO SCH (08:12)
[2023-04-25] MEDS: Potassium Chloride 10 MEQ Tab.ER PO SCH (08:12)
[2023-04-25] MEDS: Apixaban 2.5 MG Tab PO SCH ×2 (08:13→21:23)
[2023-04-25] MEDS: predniSONE 10 MG Tab PO SCH (08:13)
[2023-04-25] MEDS: Tamsulosin 0.4 MG Cap.ER PO SCH (08:13)
[2023-04-25] MEDS: Spironolactone 25 MG Tab PO SCH (08:13)
[2023-04-25] MEDS: TAFAMIDIS 61 MG PO SCH (21:23)
[2023-04-26 06:45] LABS: BASOPHILS PERCENT AUTO 0.2 % (0.2-1.2); EOSINOPHILS ABSOLUTE AUTO 0.2 x10^3/uL (0.0-0.5); EOSINOPHILS PERCENT AUTO 1.9 % (0.0-4.0); HEMATOCRIT 36.6 % (40.0-52.0); HEMOGLOBIN 11.9 g/dL (14.0-18.0); IMMATURE GRAN ABSOLUTE AUTO 0.03 x10^3/uL (0.00-0.07); LYMPHOCYTES ABSOLUTE AUTO 1.2 x10^3/uL (1.0-4.8); MEAN CORPUSCULAR HEMOGLOBIN 28.9 pg (26.0-32.0); MEAN CORPUSCULAR HGB CONC 32.5 g/dL (32.0-36.0); MEAN CORPUSCULAR VOLUME 88.8 fL (78.0-93.0); MONOCYTES ABSOLUTE AUTO 0.7 x10^3/uL (0.0-0.8); NEUTROPHILS ABSOLUTE AUTO 6.7 x10^3/uL (1.8-7.7); NEUTROPHILS PERCENT AUTO 75.6 % (50.0-80.0); RED BLOOD CELL COUNT 4.12 x10^6/uL (4.5-6.0); WHITE BLOOD CELL COUNT,WBC 8.9 x10^3/uL (4.0-10.0)
[2023-04-26 06:57] LABS: PLATELET COUNT,PLT 193 x10^3/uL (130-400)
[2023-04-26 07:14] LABS: A/G RATIO 0.87; ALBUMIN 2.7 g/dL (3.4-5.0); ANION GAP 14.9 mmol/L (5-15); BILIRUBIN TOTAL 1.2 mg/dL (0.2-1.0); C-REACTIVE PROTEIN 1.65 mg/dL (<=0.30); CALCIUM 8.3 mg/dL (8.5-10.1); CREATININE 1.3 mg/dL (0.70-1.30); MAGNESIUM 1.8 mg/dL (1.8-2.4); POTASSIUM,K 4.9 mmol/L (3.5-5.1); PROTEIN TOTAL,TP 5.8 g/dL (6.4-8.2); URIC ACID 3.9 mg/dL (3.5-7.2)
[2023-04-26] MEDS: Potassium Chloride 10 MEQ Tab.ER PO SCH (08:19)
[2023-04-26] MEDS: predniSONE 10 MG Tab PO SCH (08:20)
[2023-04-26] MEDS: Spironolactone 25 MG Tab PO SCH (08:20)
[2023-04-26] MEDS: Tamsulosin 0.4 MG Cap.ER PO SCH (08:20)
[2023-04-26] MEDS: Calcium Carbonate/Vitamin D3 1250 MG-5 MCG Tab PO SCH (08:20)
[2023-04-26] MEDS: Apixaban 2.5 MG Tab PO SCH ×2 (08:21→20:14)
[2023-04-26] MEDS: Multivitamin Tab PO SCH (08:22)
[2023-04-26] MEDS: TAFAMIDIS 61 MG PO SCH (20:13)
[2023-04-26] MEDS ORDERED: Simethicone 80 MG Tab.Chew PO PRN (20:22)
[2023-04-27] MEDS ORDERED: Acetaminophen 325 MG Tab PO PRN (08:27)
[2023-04-27] MEDS: Spironolactone 25 MG Tab PO SCH (08:51)
[2023-04-27] MEDS: Apixaban 2.5 MG Tab PO SCH ×2 (08:51→20:38)
[2023-04-27] MEDS: Multivitamin Tab PO SCH (08:52)
[2023-04-27] MEDS: Tamsulosin 0.4 MG Cap.ER PO SCH (08:52)
[2023-04-27] MEDS: Calcium Carbonate/Vitamin D3 1250 MG-5 MCG Tab PO SCH (08:52)
[2023-04-27] MEDS: predniSONE 5 MG Tab PO SCH (08:52)
[2023-04-27] MEDS: Torsemide 20 MG Tab PO SCH (08:52)
[2023-04-27] MEDS: Potassium Chloride 10 MEQ Tab.ER PO SCH (08:52)
[2023-04-27] MEDS ORDERED: Amiodarone 200 MG Tab PO SCH (09:00)
[2023-04-27] MEDS: TAFAMIDIS 61 MG PO SCH (20:38)
[2023-04-28 05:03] VITALS: BP 83/58; PULSE 69
[2023-04-28] MEDS: Spironolactone 25 MG Tab PO SCH (08:12)
[2023-04-28] MEDS: Apixaban 2.5 MG Tab PO SCH (08:12)
[2023-04-28] MEDS: Torsemide 20 MG Tab PO SCH (08:12)
[2023-04-28] MEDS: Potassium Chloride 10 MEQ Tab.ER PO SCH (08:14)
[2023-04-28] MEDS: Multivitamin Tab PO SCH (08:15)
[2023-04-28] MEDS: predniSONE 5 MG Tab PO SCH (08:15)
[2023-04-28] MEDS: Calcium Carbonate/Vitamin D3 1250 MG-5 MCG Tab PO SCH (08:15)
[2023-04-28] MEDS: Tamsulosin 0.4 MG Cap.ER PO SCH (08:15)
== END 2023-04-28 11:00 | disposition home health service (06) | DRG 947 ==
LOC: VM.MS 11:00
PROVIDERS: ADMIT Family Medicine; ATTEND Family Medicine
DX: R53.1 Weakness (principal); I21.4 Non-ST elevation (NSTEMI) myocardial infarction; E87.1 Hypo-osmolality and hyponatremia; I48.20 Chronic atrial fibrillation, unspecified; I50.32 Chronic diastolic (congestive) heart failure; N18.4 Chronic kidney disease, stage 4 (severe); I13.0 Hypertensive heart and chronic kidney disease with heart failure and stage 1 through stage 4 chronic kidney disease, or unspecified chronic kidney disease; E85.4 Organ-limited amyloidosis; I43 Cardiomyopathy in diseases classified elsewhere; M19.90 Unspecified osteoarthritis, unspecified site; E87.6 Hypokalemia; E87.5 Hyperkalemia; E66.9 Obesity, unspecified; E83.42 Hypomagnesemia; M10.9 Gout, unspecified; G47.33 Obstructive sleep apnea (adult) (pediatric); Z66 Do not resuscitate; M35.3 Polymyalgia rheumatica; D63.1 Anemia in chronic kidney disease; Z79.899 Other long term (current) drug therapy; Z88.5 Allergy status to narcotic agent; Z98.890 Other specified postprocedural states; Z68.27 Body mass index [BMI] 27.0-27.9, adult
CPT/HCPCS: 36415; 80048; 80053; 82947; 83735; 83880; 84550; 85025; 86140; 90694; 94760; 95851-GO; 97110-GP; 97112-GP; 97116-GP; 97530-GP; 97535-GO; A9270-GY; G0008; J7512

== ENCOUNTER 2024-01-01 11:46 | Inpatient (IN) | payer MEDICARE, BC ==
[2024-01-01] MEDS ORDERED: Polyethylene Glycol 3350 Powder 17 GM Packet PO PRN (15:44)
[2024-01-01] MEDS: Simvastatin 10 MG Tab PO SCH (20:34)
[2024-01-01] MEDS: Apixaban 2.5 MG Tab PO SCH (20:34)
[2024-01-01] MEDS: Acetaminophen 325 MG Tab PO PRN (20:34)
[2024-01-02] MEDS: Levothyroxine 25 MCG Tab PO SCH (06:08)
[2024-01-02 06:48] LABS: BASOPHILS PERCENT AUTO 0.5 % (0.2-1.2); EOSINOPHILS ABSOLUTE AUTO 0.1 x10^3/uL (0.0-0.5); EOSINOPHILS PERCENT AUTO 1.7 % (0.0-4.0); HEMATOCRIT 34.7 % (40.0-52.0); HEMOGLOBIN 11.6 g/dL (14.0-18.0); IMMATURE GRAN ABSOLUTE AUTO 0.03 x10^3/uL (0.00-0.07); LYMPHOCYTES ABSOLUTE AUTO 1.1 x10^3/uL (1.0-4.8); LYMPHOCYTES PERCENT AUTO 12.9 % (25.0-50.0); MEAN CORPUSCULAR HEMOGLOBIN 28.9 pg (26.0-32.0); MEAN CORPUSCULAR HGB CONC 33.4 g/dL (32.0-36.0); MEAN CORPUSCULAR VOLUME 86.5 fL (78.0-93.0); MONOCYTES ABSOLUTE AUTO 0.7 x10^3/uL (0.0-0.8); MONOCYTES PERCENT AUTO 8.6 % (2.0-11.0); NEUTROPHILS ABSOLUTE AUTO 6.4 x10^3/uL (1.8-7.7); NEUTROPHILS PERCENT AUTO 75.9 % (50.0-80.0); PLATELET COUNT,PLT 281 x10^3/uL (130-400); RED BLOOD CELL COUNT 4.01 x10^6/uL (4.5-6.0); WHITE BLOOD CELL COUNT,WBC 8.4 x10^3/uL (4.0-10.0)
[2024-01-02 07:19] LABS: A/G RATIO 0.74; ALBUMIN 2.3 g/dL (3.4-5.0); BILIRUBIN TOTAL 0.6 mg/dL (0.2-1.0); CALCIUM 8.2 mg/dL (8.5-10.1); CREATININE 1.3 mg/dL (0.70-1.30); EST CRCL DRUG DOSING (CG) 42.9 mL/min; MAGNESIUM 1.8 mg/dL (1.8-2.4); POTASSIUM,K 3.5 mmol/L (3.5-5.1); PROTEIN TOTAL,TP 5.4 g/dL (6.4-8.2)
[2024-01-02 07:20] LABS: ANION GAP 8.5 mmol/L (5-15)
[2024-01-02] MEDS: Spironolactone 25 MG Tab PO SCH (09:41)
[2024-01-02] MEDS: Calcium Citrate/Vitamin D3 315 MG-250 Unit Tab PO SCH (09:41)
[2024-01-02] MEDS: Amiodarone 200 MG Tab PO SCH (09:41)
[2024-01-02] MEDS: Torsemide 20 MG Tab PO SCH (09:41)
[2024-01-02] MEDS: Multivitamin Tab PO SCH (09:42)
[2024-01-02] MEDS: Tamsulosin 0.4 MG Cap.ER PO SCH (09:42)
[2024-01-02] MEDS: TAFAMIDIS 61 MG PO SCH (09:43)
[2024-01-02] MEDS: UBIDECARENONE 100 MG PO SCH (13:44)
[2024-01-03] MEDS: Allopurinol 100 MG Tab PO SCH (08:41)
[2024-01-05] MEDS: Miconazole 2% Top Powder 45 GM Container TOP SCH (20:50)
[2024-01-08 06:21] LABS: BASOPHILS PERCENT AUTO 0.7 % (0.2-1.2); EOSINOPHILS ABSOLUTE AUTO 0.2 x10^3/uL (0.0-0.5); EOSINOPHILS PERCENT AUTO 2.8 % (0.0-4.0); HEMATOCRIT 35.1 % (40.0-52.0); HEMOGLOBIN 11.5 g/dL (14.0-18.0); IMMATURE GRAN ABSOLUTE AUTO 0.02 x10^3/uL (0.00-0.07); LYMPHOCYTES ABSOLUTE AUTO 1.3 x10^3/uL (1.0-4.8); LYMPHOCYTES PERCENT AUTO 21.1 % (25.0-50.0); MEAN CORPUSCULAR HEMOGLOBIN 29.1 pg (26.0-32.0); MEAN CORPUSCULAR HGB CONC 32.8 g/dL (32.0-36.0); MEAN CORPUSCULAR VOLUME 88.9 fL (78.0-93.0); MONOCYTES ABSOLUTE AUTO 0.9 x10^3/uL (0.0-0.8); MONOCYTES PERCENT AUTO 13.9 % (2.0-11.0); NEUTROPHILS ABSOLUTE AUTO 3.7 x10^3/uL (1.8-7.7); NEUTROPHILS PERCENT AUTO 61.2 % (50.0-80.0); PLATELET COUNT,PLT 335 x10^3/uL (130-400); RED BLOOD CELL COUNT 3.95 x10^6/uL (4.5-6.0); WHITE BLOOD CELL COUNT,WBC 6.1 x10^3/uL (4.0-10.0)
[2024-01-08 06:50] LABS: CALCIUM 8.6 mg/dL (8.5-10.1); CREATININE 1.4 mg/dL (0.70-1.30); EST CRCL DRUG DOSING (CG) 39.83 mL/min; POTASSIUM,K 4.4 mmol/L (3.5-5.1)
[2024-01-08 06:51] LABS: ANION GAP 10.4 mmol/L (5-15)
[2024-01-08] MEDS: Torsemide 20 MG Tab PO SCH (09:20)
[2024-01-15 09:47] LABS: BASOPHILS PERCENT AUTO 0.6 % (0.2-1.2); EOSINOPHILS ABSOLUTE AUTO 0.2 x10^3/uL (0.0-0.5); EOSINOPHILS PERCENT AUTO 3.7 % (0.0-4.0); HEMATOCRIT 35.9 % (40.0-52.0); HEMOGLOBIN 11.7 g/dL (14.0-18.0); LYMPHOCYTES ABSOLUTE AUTO 0.9 x10^3/uL (1.0-4.8); MEAN CORPUSCULAR HEMOGLOBIN 29.1 pg (26.0-32.0); MEAN CORPUSCULAR HGB CONC 32.6 g/dL (32.0-36.0); MEAN CORPUSCULAR VOLUME 89.3 fL (78.0-93.0); MONOCYTES ABSOLUTE AUTO 0.5 x10^3/uL (0.0-0.8); MONOCYTES PERCENT AUTO 10.7 % (2.0-11.0); NEUTROPHILS ABSOLUTE AUTO 3.2 x10^3/uL (1.8-7.7); PLATELET COUNT,PLT 210 x10^3/uL (130-400); RED BLOOD CELL COUNT 4.02 x10^6/uL (4.5-6.0); WHITE BLOOD CELL COUNT,WBC 4.8 x10^3/uL (4.0-10.0)
[2024-01-15 10:17] LABS: A/G RATIO 0.94; BILIRUBIN TOTAL 1.1 mg/dL (0.2-1.0); CALCIUM 8.8 mg/dL (8.5-10.1); CREATININE 1.7 mg/dL (0.70-1.30); EST CRCL DRUG DOSING (CG) 32.8 mL/min; MAGNESIUM 1.8 mg/dL (1.8-2.4); POTASSIUM,K 3.9 mmol/L (3.5-5.1); PROTEIN TOTAL,TP 6.2 g/dL (6.4-8.2)
[2024-01-15 10:22] LABS: ANION GAP 13.9 mmol/L (5-15)
[2024-01-15] MEDS: Iopamidol 612 MG/ML 30 ML SDV PO ONE (12:49)
[2024-01-15] MEDS: Iopamidol 612 MG/ML 100 ML Bottle IVPUSH ONE (12:49)
[2024-01-16 07:21] LABS: A/G RATIO 0.81; ALBUMIN 2.9 g/dL (3.4-5.0); CREATININE 1.5 mg/dL (0.70-1.30); EST CRCL DRUG DOSING (CG) 37.18 mL/min; POTASSIUM,K 4.4 mmol/L (3.5-5.1); PROTEIN TOTAL,TP 6.5 g/dL (6.4-8.2)
[2024-01-16 07:26] LABS: ANION GAP 13.4 mmol/L (5-15)
[2024-01-17 07:00] LABS: A/G RATIO 1.03; BILIRUBIN TOTAL 0.9 mg/dL (0.2-1.0); CREATININE 1.6 mg/dL (0.70-1.30); EST CRCL DRUG DOSING (CG) 34.85 mL/min; POTASSIUM,K 4.4 mmol/L (3.5-5.1); PROTEIN TOTAL,TP 5.9 g/dL (6.4-8.2)
[2024-01-17 07:01] LABS: ANION GAP 10.4 mmol/L (5-15)
[2024-01-19 10:01] VITALS: BP 91/58; PULSE 73
== END 2024-01-19 10:40 | disposition home health service (06) | DRG 948 ==
LOC: VM.MS 15:15
PROVIDERS: ADMIT Family Medicine; ATTEND Family Medicine
DX: R53.1 Weakness (principal); I48.19 Other persistent atrial fibrillation; E85.4 Organ-limited amyloidosis; I43 Cardiomyopathy in diseases classified elsewhere; I50.32 Chronic diastolic (congestive) heart failure; Z66 Do not resuscitate; M10.20 Drug-induced gout, unspecified site; E78.1 Pure hyperglyceridemia; G47.33 Obstructive sleep apnea (adult) (pediatric); M17.12 Unilateral primary osteoarthritis, left knee; I27.20 Pulmonary hypertension, unspecified; E03.9 Hypothyroidism, unspecified; I25.10 Atherosclerotic heart disease of native coronary artery without angina pectoris; D50.0 Iron deficiency anemia secondary to blood loss (chronic); N18.31 Chronic kidney disease, stage 3a; R79.89 Other specified abnormal findings of blood chemistry; Z90.49 Acquired absence of other specified parts of digestive tract; Z79.899 Other long term (current) drug therapy; Z79.01 Long term (current) use of anticoagulants; Z88.5 Allergy status to narcotic agent; Z86.16 Personal history of COVID-19; I25.2 Old myocardial infarction; Z98.890 Other specified postprocedural states; Z95.0 Presence of cardiac pacemaker; Z99.81 Dependence on supplemental oxygen
CPT/HCPCS: 36415; 74177; 80048; 80053; 83690; 83735; 83880; 85025; 94760; 95851-GO; 97110-GP; 97116-GP; 97161-GP; 97165-GO; 97530-GO; 97530-GP; 97535-GO; A9270-GY; Q9967

== ENCOUNTER 2024-10-04 14:50 | Emergency (ER) | payer MEDICARE, BC ==
[2024-10-04] MEDS ORDERED: Sodium Chloride 0.9% 10 ML Syringe FLUSH PRN (15:27)
[2024-10-04] MEDS: Lactated Ringers 1,000 ML IV ONE (15:33)
[2024-10-04 15:39] LABS: BASOPHILS PERCENT AUTO 0.1 % (0.2-1.2); EOSINOPHILS PERCENT AUTO 0.1 % (0.0-4.0); HEMATOCRIT 36.9 % (40.0-52.0); HEMOGLOBIN 13.1 g/dL (14.0-18.0); IMMATURE GRAN ABSOLUTE AUTO 0.04 x10^3/uL (0.00-0.07); LYMPHOCYTES ABSOLUTE AUTO 0.4 x10^3/uL (1.0-4.8); MEAN CORPUSCULAR HGB CONC 35.5 g/dL (32.0-36.0); MEAN CORPUSCULAR VOLUME 87.4 fL (78.0-93.0); MONOCYTES ABSOLUTE AUTO 1.4 x10^3/uL (0.0-0.8); MONOCYTES PERCENT AUTO 10.5 % (2.0-11.0); NEUTROPHILS ABSOLUTE AUTO 11.7 x10^3/uL (1.8-7.7); NEUTROPHILS PERCENT AUTO 85.9 % (50.0-80.0); PLATELET COUNT,PLT 189 x10^3/uL (130-400); RED BLOOD CELL COUNT 4.22 x10^6/uL (4.5-6.0); WHITE BLOOD CELL COUNT,WBC 13.7 x10^3/uL (4.0-10.0)
[2024-10-04 15:45] LABS: INR 1.2 (0.9-1.1); LYMPHOCYTES PERCENT AUTO 3.1 % (25.0-50.0); PTT,PARTIAL THROMBOPLSTIN TIME 32.7 SEC (23.5-33.2)
[2024-10-04 15:49] LABS: LACTIC ACID 1.1 mmol/L (0.4-2.0)
[2024-10-04 15:50] LABS: A/G RATIO 0.77; ALANINE AMINOTRANSFERASE,ALT 21 U/L (16-63); ALKALINE PHOSPHATASE 65 U/L (46-116); ASPARTATE AMNIOTRANSFERASE,AST 23 U/L (15-37); BILIRUBIN TOTAL 1.5 mg/dL (0.2-1.0); C-REACTIVE PROTEIN 19.31 mg/dL (<=0.50); CALCIUM 8.6 mg/dL (8.5-10.1); CARBON DIOXIDE,CO2 30 mmol/L (21-32); CHLORIDE,CL 88 mmol/L (98-107); CREATININE 2.3 mg/dL (0.70-1.30); GLUCOSE RANDOM 90 mg/dL (70-99); LIPASE 86 U/L (19-71); MAGNESIUM 2.4 mg/dL (1.8-2.4); POTASSIUM,K 4.6 mmol/L (3.5-5.1); PROTEIN TOTAL,TP 6.9 g/dL (6.4-8.2)
[2024-10-04 15:51] LABS: ANION GAP 12.6 mmol/L (5-15); ESTIMATED GFR 27 mL/min (>=60)
[2024-10-04 15:52] LABS: BLOOD UREA NITROGEN,BUN 76 mg/dL (7-18); SODIUM,NA 126 mmol/L (136-145)
[2024-10-04 16:07] LABS: APPEARANCE,URINE CLEAR (CLEAR); BILIRUBIN,URINE NEGATIVE (NEGATIVE); COLOR,URINE YELLOW (YELLOW); GLUCOSE,URINE NEGATIVE (NEGATIVE); KETONES,URINE NEGATIVE (NEGATIVE); LEUKOCYTE ESTERASE,URINE NEGATIVE (NEGATIVE); NITRITE,URINE NEGATIVE (NEGATIVE); OCCULT BLOOD,URINE NEGATIVE (NEGATIVE); PH,URINE 6.5 (5.0-8.0); PROTEIN,URINE NEGATIVE (NEGATIVE)
[2024-10-04] MEDS: cefTRIAXone 1 GM Vial IVPUSH ONE (16:40)
[2024-10-04] MEDS: Azithromycin 500 MG in Sodium Chloride 0.9% 250 ML IV ONE (16:40)
[2024-10-04] MEDS: Lactated Ringers 1,000 ML IV SCH (17:17)
[2024-10-04] MEDS: Norepinephrine Bit/D5W Premix 250 ML IV SCH (17:30)
[2024-10-04 19:34] VITALS: BP 109/69; PULSE 74
== END 2024-10-04 18:48 | disposition short-term general hospital (02) ==
LOC: VM.ED 14:50
DX: A41.9 Sepsis, unspecified organism (principal); R65.21 Severe sepsis with septic shock; I21.4 Non-ST elevation (NSTEMI) myocardial infarction; I48.91 Unspecified atrial fibrillation; I25.10 Atherosclerotic heart disease of native coronary artery without angina pectoris; I13.0 Hypertensive heart and chronic kidney disease with heart failure and stage 1 through stage 4 chronic kidney disease, or unspecified chronic kidney disease; I50.9 Heart failure, unspecified; N18.32 Chronic kidney disease, stage 3b; E66.9 Obesity, unspecified; Z68.29 Body mass index [BMI] 29.0-29.9, adult; Z90.49 Acquired absence of other specified parts of digestive tract; Z88.5 Allergy status to narcotic agent; Z79.01 Long term (current) use of anticoagulants; Z79.890 Hormone replacement therapy; Z79.899 Other long term (current) drug therapy
CPT/HCPCS: 36415; 71045; 80053; 81003; 83605; 83690; 83735; 84484; 85025; 85610; 85730; 86140; 87040; 87428-QW; 93005; 96361; 96365; 96367; 96375; 99285-25; J0456; J0696; J7050; J7120

== ENCOUNTER 2024-10-10 09:21 | Inpatient (IN) | payer MEDICARE, BC ==
[2024-10-10] MEDS: Torsemide 20 MG Tab PO SCH (17:02)
[2024-10-10] MEDS: Apixaban 5 MG Tab PO SCH (22:21)
[2024-10-10] MEDS: Pravastatin 20 MG Tab PO SCH (22:21)
[2024-10-10] MEDS: TAFAMIDIS 61 MG PO SCH (22:21)
[2024-10-11] MEDS: Levothyroxine 25 MCG Tab PO SCH (06:42)
[2024-10-11 07:04] LABS: BASOPHILS PERCENT AUTO 0.3 % (0.2-1.2); EOSINOPHILS ABSOLUTE AUTO 0.1 x10^3/uL (0.0-0.5); EOSINOPHILS PERCENT AUTO 1.3 % (0.0-4.0); HEMATOCRIT 40.2 % (40.0-52.0); HEMOGLOBIN 13.5 g/dL (14.0-18.0); IMMATURE GRAN ABSOLUTE AUTO 0.04 x10^3/uL (0.00-0.07); LYMPHOCYTES ABSOLUTE AUTO 2.4 x10^3/uL (1.0-4.8); LYMPHOCYTES PERCENT AUTO 30.5 % (25.0-50.0); MEAN CORPUSCULAR HEMOGLOBIN 30.3 pg (26.0-32.0); MEAN CORPUSCULAR HGB CONC 33.6 g/dL (32.0-36.0); MEAN CORPUSCULAR VOLUME 90.3 fL (78.0-93.0); MONOCYTES ABSOLUTE AUTO 0.6 x10^3/uL (0.0-0.8); MONOCYTES PERCENT AUTO 7.8 % (2.0-11.0); NEUTROPHILS ABSOLUTE AUTO 4.6 x10^3/uL (1.8-7.7); NEUTROPHILS PERCENT AUTO 59.6 % (50.0-80.0); PLATELET COUNT,PLT 238 x10^3/uL (130-400); RED BLOOD CELL COUNT 4.45 x10^6/uL (4.5-6.0); WHITE BLOOD CELL COUNT,WBC 7.7 x10^3/uL (4.0-10.0)
[2024-10-11 07:36] LABS: A/G RATIO 0.9; ALBUMIN 2.7 g/dL (3.4-5.0); BILIRUBIN TOTAL 0.8 mg/dL (0.2-1.0); C-REACTIVE PROTEIN 1.46 mg/dL (<=0.50); CALCIUM 8.2 mg/dL (8.5-10.1); CREATININE 1.7 mg/dL (0.70-1.30); EST CRCL DRUG DOSING (CG) 32.21 mL/min; MAGNESIUM 2.1 mg/dL (1.8-2.4); POTASSIUM,K 3.8 mmol/L (3.5-5.1); PROTEIN TOTAL,TP 5.7 g/dL (6.4-8.2)
[2024-10-11 07:37] LABS: ANION GAP 10.8 mmol/L (5-15)
[2024-10-11] MEDS ORDERED: UBIDECARENONE 100 MG PO SCH (09:00)
[2024-10-11] MEDS ORDERED: Spironolactone 25 MG Tab PO SCH (09:00)
[2024-10-11] MEDS: Allopurinol 100 MG Tab PO SCH (09:30)
[2024-10-11] MEDS: Tamsulosin 0.4 MG Cap.ER PO SCH (09:30)
[2024-10-11] MEDS: predniSONE 5 MG Tab PO SCH (09:30)
[2024-10-11] MEDS: Calcium Citrate/Vitamin D3 315 MG-250 Unit Tab PO SCH (09:35)
[2024-10-11] MEDS: Spironolactone 25 MG Tab PO SCH (09:35)
[2024-10-11] MEDS: Multivitamin Tab PO SCH (09:36)
[2024-10-13] MEDS: predniSONE 10 MG Tab PO SCH (09:14)
[2024-10-13] MEDS: Polyethylene Glycol 3350 Powder 17 GM Packet PO PRN (09:54)
[2024-10-13] MEDS: Acetaminophen 325 MG Tab PO PRN (21:05)
[2024-10-14 07:45] LABS: CALCIUM 8.3 mg/dL (8.5-10.1); CREATININE 1.8 mg/dL (0.70-1.30); EST CRCL DRUG DOSING (CG) 30.42 mL/min
[2024-10-14] MEDS: Spironolactone 25 MG Tab PO SCH (08:33)
[2024-10-14] MEDS: Sennosides/Docusate Sodium 50-8.6 MG Tab PO SCH (12:28)
[2024-10-15] MEDS: predniSONE 5 MG Tab PO SCH (08:01)
[2024-10-17 06:52] LABS: BASOPHILS PERCENT AUTO 0.4 % (0.2-1.2); EOSINOPHILS ABSOLUTE AUTO 0.1 x10^3/uL (0.0-0.5); HEMATOCRIT 40.3 % (40.0-52.0); HEMOGLOBIN 13.6 g/dL (14.0-18.0); IMMATURE GRAN ABSOLUTE AUTO 0.02 x10^3/uL (0.00-0.07); LYMPHOCYTES PERCENT AUTO 24.1 % (25.0-50.0); MEAN CORPUSCULAR HGB CONC 33.7 g/dL (32.0-36.0); MEAN CORPUSCULAR VOLUME 91.8 fL (78.0-93.0); MONOCYTES ABSOLUTE AUTO 0.7 x10^3/uL (0.0-0.8); MONOCYTES PERCENT AUTO 8.8 % (2.0-11.0); NEUTROPHILS ABSOLUTE AUTO 5.4 x10^3/uL (1.8-7.7); NEUTROPHILS PERCENT AUTO 65.5 % (50.0-80.0); PLATELET COUNT,PLT 183 x10^3/uL (130-400); RED BLOOD CELL COUNT 4.39 x10^6/uL (4.5-6.0); WHITE BLOOD CELL COUNT,WBC 8.3 x10^3/uL (4.0-10.0)
[2024-10-17 07:17] LABS: CALCIUM 8.2 mg/dL (8.5-10.1); CREATININE 1.7 mg/dL (0.70-1.30); EST CRCL DRUG DOSING (CG) 32.21 mL/min; POTASSIUM,K 3.8 mmol/L (3.5-5.1)
[2024-10-17 07:21] LABS: ANION GAP 10.8 mmol/L (5-15)
[2024-10-17] MEDS: predniSONE 5 MG Tab PO SCH (08:54)
[2024-10-17] MEDS: Miconazole 2% Top Powder 45 GM Container TOP SCH (08:59)
[2024-10-19] MEDS: Tamsulosin 0.4 MG Cap.ER PO SCH (21:05)
[2024-10-21 07:36] LABS: CALCIUM 8.2 mg/dL (8.5-10.1); CREATININE 1.7 mg/dL (0.70-1.30); EST CRCL DRUG DOSING (CG) 32.21 mL/min; POTASSIUM,K 3.8 mmol/L (3.5-5.1)
[2024-10-21 07:39] LABS: ANION GAP 11.8 mmol/L (5-15)
[2024-10-22] MEDS ORDERED: Torsemide 20 MG Tab PO SCH (09:00)
[2024-10-22] MEDS: Torsemide 20 MG Tab PO SCH (09:20)
[2024-10-22] MEDS: Apixaban 2.5 MG Tab PO SCH (20:20)
[2024-10-23] MEDS: predniSONE 5 MG Tab PO SCH (08:19)
[2024-10-23 11:34] VITALS: BP 110/58; PULSE 66
== END 2024-10-23 11:45 | disposition home health service (06) | DRG 947 ==
LOC: VM.MS 14:05
PROVIDERS: ADMIT Family Medicine; ATTEND Family Medicine
DX: R53.1 Weakness (principal); A41.9 Sepsis, unspecified organism; I21.4 Non-ST elevation (NSTEMI) myocardial infarction; J18.9 Pneumonia, unspecified organism; R65.21 Severe sepsis with septic shock; I50.33 Acute on chronic diastolic (congestive) heart failure; N17.9 Acute kidney failure, unspecified; E87.1 Hypo-osmolality and hyponatremia; I48.20 Chronic atrial fibrillation, unspecified; N18.30 Chronic kidney disease, stage 3 unspecified; E03.9 Hypothyroidism, unspecified; M10.9 Gout, unspecified; D63.1 Anemia in chronic kidney disease; I27.20 Pulmonary hypertension, unspecified; H91.93 Unspecified hearing loss, bilateral; G56.03 Carpal tunnel syndrome, bilateral upper limbs; B35.6 Tinea cruris; Z98.890 Other specified postprocedural states
CPT/HCPCS: 36415; 71046; 80048; 80053; 83735; 83880; 85025; 86140; 97110-GP; 97116-GP; 97161-GP; 97165-GO; 97530-GP; 97535-GO; A9270-GY; J7512